=== PATIENT | female | born 1985 | race Caucasian/White ===

== ENCOUNTER → 2018-12-12 | Outpatient (CLI) | payer OTHER, SELFPAY ==
[2018-12-12 08:44] LABS: Anion Gap 4 (5-15); BUN 11 mg/dL (7-18); BUN/Creat Ratio 14.3 RATIO (10-20); Calcium,Total 9.1 mg/dL (8.5-10.1); Chloride 105 mmol/L (98-107); Creatinine, Serum 0.77 mg/dL (0.55-1.02); EST Glomerular Filtration Rate 91 mL/min (>60); Est Glom Filt Rate - Afr Amer 111 mL/min (>60); Glucose 99 mg/dL (74-106); Potassium 4.1 mmol/L (3.5-5.1); Sodium Level 139 mmol/L (136-145)
== END | disposition home or self-care (01) ==
LOC: LAB 08:09
PROVIDERS: Family Provider Family Medicine; PCP Family Medicine; Referring Provider Internal Medicine Endocrinology, Diabetes & Metabolism; Visit Provider Internal Medicine Endocrinology, Diabetes & Metabolism
DX: E04.1 Nontoxic single thyroid nodule (principal)
CPT/HCPCS: 36415; 80048

== ENCOUNTER → 2019-01-17 08:04 | Outpatient (CLI) | payer OTHER, SELFPAY ==
[2019-01-17 10:34] LABS: Anion Gap 8 (5-15); BUN 18 mg/dL (7-18); BUN/Creat Ratio 24.1 RATIO (10-20); Chloride 105 mmol/L (98-107); Creatinine, Serum 0.75 mg/dL (0.55-1.02); EST Glomerular Filtration Rate 94 mL/min (>60); Est Glom Filt Rate - Afr Amer 114 mL/min (>60); Glucose 73 mg/dL (74-106); Potassium 3.8 mmol/L (3.5-5.1); Sodium Level 140 mmol/L (136-145)
== END ==
PROVIDERS: Referring Provider Internal Medicine Endocrinology, Diabetes & Metabolism; Visit Provider Internal Medicine Endocrinology, Diabetes & Metabolism
DX: E04.1 Nontoxic single thyroid nodule (principal)
CPT/HCPCS: 36415; 80048

== ENCOUNTER → 2019-02-03 | Outpatient (CLI) | payer OTHER, SELFPAY ==
[2019-02-08 15:06] LABS: Thyroglobulin Antibody 1.4 IU/mL (0.0-0.9)
== END | disposition home or self-care (01) ==
LOC: LAB 08:01
PROVIDERS: Referring Provider Internal Medicine Endocrinology, Diabetes & Metabolism; Visit Provider Internal Medicine Endocrinology, Diabetes & Metabolism
DX: E04.1 Nontoxic single thyroid nodule (principal)
CPT/HCPCS: 36415; 84443; 86800

== ENCOUNTER → 2019-02-07 | Outpatient (CLI) | payer OTHER, SELFPAY ==
[2019-02-07 08:23] LABS: Internal QC Validated? YES +Cl - CLEAR BKGD; Pregnancy, Serum, hCG Quali. NEGATIVE Negative
== END | disposition home or self-care (01) ==
LOC: LAB.FUTURE 08:03
PROVIDERS: Referring Provider Internal Medicine Endocrinology, Diabetes & Metabolism; Visit Provider Internal Medicine Endocrinology, Diabetes & Metabolism
DX: C73 Malignant neoplasm of thyroid gland (principal)
CPT/HCPCS: 36415; 84703

== ENCOUNTER → 2019-03-27 | Outpatient (CLI) | payer OTHER, SELFPAY ==
[2019-03-27 10:16] LABS: Thyroid Stim Hormone (TSH) 1.93 uIU/mL (0.358-3.74)
[2019-03-28 16:25] LABS: Thyroglobulin Antibody 1.1 IU/mL (0.0-0.9)
== END | disposition home or self-care (01) ==
LOC: LAB 08:35
PROVIDERS: Referring Provider Internal Medicine Endocrinology, Diabetes & Metabolism; Visit Provider Internal Medicine Endocrinology, Diabetes & Metabolism
DX: E04.1 Nontoxic single thyroid nodule (principal)
CPT/HCPCS: 36415; 84443; 86800

== ENCOUNTER → 2019-05-17 | Outpatient (CLI) | payer OTHER, SELFPAY ==
[2019-05-17 12:06] LABS: Thyroid Stim Hormone (TSH) 0.05 uIU/mL (0.358-3.74)
== END | disposition home or self-care (01) ==
LOC: LAB 10:50
PROVIDERS: Referring Provider Internal Medicine Endocrinology, Diabetes & Metabolism; Visit Provider Internal Medicine Endocrinology, Diabetes & Metabolism
DX: C73 Malignant neoplasm of thyroid gland (principal)
CPT/HCPCS: 36415; 84443

== ENCOUNTER → 2019-06-15 | Outpatient (CLI) | payer SELFPAY, OTHER ==
--- NOTE | 2019-06-15 07:44 | CT_ITS ---
STUDY: CT ABDOMEN AND PELVIS WITH CONTRAST REASON FOR EXAM: Female, 34 years old. History of thyroid cancer with prior thyroidectomy and radiation therapy. Atherosclerosis. RADIATION DOSAGE (If Supplied By Facility): CTDIvol = ( 6.84 ) mGy, DLP = ( 415.74 ) mGycm TECHNIQUE: Transaxial images were obtained from the dome of the diaphragm to the symphysis pubis without oral contrast. IV Isovue 370 100 was administered. Sagittal and coronal images were reconstructed. Individualized dose optimization techniques were used for this CT. COMPARISON: None. FINDINGS: The visualized lung bases are unremarkable. The visualized portions of the heart are within normal limits. Normal liver. Normal gallbladder and extrahepatic biliary system. Normal spleen. Normal pancreas. Normal bilateral adrenal glands. Normal right kidney. Normal left kidney. Normal visualized stomach. Normal small intestine. Normal colon. The appendix is visualized and appears normal. Normal abdominal aorta. Normal inferior vena cava. Normal retroperitoneum. Normal urinary bladder. Retroverted uterus. The uterus is enlarged and of increased vascularity. Normal abdominal wall. Normal osseous structures. CT/CT Abd/Pelvis W/WO Contrast IMPRESSION: Normal enhanced CT of the abdomen and pelvis. Electronically Signed: Delmar Amin, at 8:59 EDT , Service support ,
--- NOTE | 2019-06-15 07:44 | CT_ITS ---
STUDY: CTA CHEST REASON FOR EXAM: Female, 34 years old. History of atherosclerosis of the aorta. Celiac artery stenosis. The patient has a history of thyroid carcinoma treated with thyroidectomy and radioactive iodine. RADIATION DOSAGE (If Supplied By Facility): CTDIvol = ( 6.84 ) mGy, DLP = ( 415.74 ) mGycm TECHNIQUE: The examination was performed with the intravenous administration of IV 100mL Isovue-370 100. Post-processing of the angiographic images was performed, with multiplanar reformation and 3D reconstruction. Individualized dose optimization techniques were used for this CT. COMPARISON: None. FINDINGS: Normal enhancement of the main pulmonary artery and right and left pulmonary arteries. Normal enhancement of the bilateral peripheral pulmonary arteries. There is no demonstrated pulmonary embolism. Normal thoracic aorta and visualized great vessels. There is no demonstrated aortic dissection. Normal heart and pericardium. Normal mediastinum. Normal hilar regions. Normal visualized trachea and bronchi. The lungs are well expanded. Normal pulmonary parenchyma. Normal pleura. Normal chest wall structures. Normal osseous structures. Normal visualized upper abdomen. CT/CTA Chest W/WO Contrast IMPRESSION: Normal CTA chest examination, without a demonstrated pulmonary embolism or arterial dissection. Electronically Signed: Delmar Amin, at 8:59 EDT , Service support ,
--- NOTE | 2019-06-15 11:58 | NM_ITS ---
CLINICAL: 34-year-old female with reported history of abdominal pain and nausea. SEMI-SOLID PHASE 99m Tc SULFUR COLLOID GASTRIC EMPTYING STUDY COMPARISON: CT of the abdomen-pelvis report 06/15/2019 FINDINGS: The patient was administered 1.0 mCi of 99m Tc sulfur colloid mixed with oatmeal and consumed per os. Image acquisitions in the anterior-posterior projections for a total of 60 minutes. There is prompt visualization of the stomach. There is no gastroesophageal reflux identified. The T1/2 linear fit was calculated to be 49.24 minutes, (Normal: 12-56 minutes). NM/Gastric Emptying Study IMPRESSION: 1. NORMAL 99m Tc sulfur colloid semi-solid phase (oatmeal) gastric emptying imaging examination. A. There is normal and preserved semi-solid phase gastric emptying compared to normal controls with maintained first order kinetics throughout all components of the examination. (Ray et al, J Nucl Med Tech 38: 186, 2010). Electronically Signed: Edson Canchola DO at 23:28 EDT Tel , Service support ,
== END | disposition home or self-care (01) ==
DX: I70.0 Atherosclerosis of aorta (principal); R11.0 Nausea
CPT/HCPCS: 71275; 74178; 78264; A9541; Q9967

== ENCOUNTER → 2019-06-21 | Outpatient (CLI) | payer OTHER, SELFPAY ==
--- NOTE | 2019-06-21 09:01 | AAVD_ITS ---
Reason For Study: Nausea Aorta Measurements Aorta Doppler Measurements Proximal aorta measures1.36 x 1.40cm. in cross- Peak systolic flow velocities within the proximal sectional axis. aorta measure 165.9 cm/sec. Proximal aorta measures1.32cm. in longitudinal axis. Celiac artery, Origin, 538.1/211.4 cm/sec. Celiac artery, Prox, 223.3/62.6 cm/sec. Hepatic artery, Prox, 172.3/49.5 cm/sec. Splenic artery, Prox, 229/23.7 cm/sec. SMA, Origin, 179.8/37.5 cm/sec. SMA, Prox, 190.8/30.6 cm/sec. SMA, Mid, 179.7/18.1 cm/sec. SARITA, Origin, 211.9 cm/sec. SARITA, Prox, 151.9/6.7 cm/sec. Procedure Exam performed in department. Interpretation Summary 1. Severe stenosis of celiac artery. Ordering Physician: VICTORINA BARRIENTOS Referring Physician: [facility] , Out of Performed By: Danni Becerra RVT
== END | disposition home or self-care (01) ==
LOC: CVS 08:42
DX: R11.0 Nausea (principal)
CPT/HCPCS: 93978

== ENCOUNTER → 2019-08-02 07:54 | Outpatient (CLI) | payer OTHER, SELFPAY ==
--- NOTE | 2019-08-02 07:57 | RAD_ITS ---
PROCEDURE: SMALL BOWEL SERIES DATE OF EXAMINATION: August 02, 2019. INDICATION: Female, 34 years old. Sharp and dull abdominal pain with nausea. PHYSICIAN: Delmar Amin M.D. FLUOROSCOPY TIME (if supplied): (0:19) minutes/seconds TECHNIQUE: Radiographic and fluoroscopic images were taken of the small intestine following the ingestion of barium. COMPARISON: None. FINDINGS: A preliminary supine KUB was obtained. There is an unremarkable bowel gas pattern. Fecal material is present throughout the colon. The osseous structures are normal. The patient orally ingested approximately 12 ounces of thin barium Normal visualized fundus, body, and antrum of the stomach. Normal duodenal bulb, C-loop, and proximal jejunum. Normal visualized mucosal folds of the jejunum and ileum. There are no demonstrated dilatations, strictures, or masses of the small intestine. There is no mass displacement of the loops of small intestine. There is a normal motor pattern with barium reaching the colon within approximately 30 minutes. Spot films under fluoroscopic observation demonstrated a normal terminal ileum and ileocecal valve. RAD/Small Bowel Series Only IMPRESSION: Normal small bowel series. Electronically Signed: Delmar Amin, at 13:25 EST , Service support ,
== END ==
PROVIDERS: Referring Provider Internal Medicine Gastroenterology; Visit Provider Internal Medicine Gastroenterology
DX: R10.84 Generalized abdominal pain (principal); R11.2 Nausea with vomiting, unspecified
CPT/HCPCS: 74250

== ENCOUNTER → 2021-12-17 | Outpatient (CLI) | payer OTHER, SELFPAY | END | disposition home or self-care (01) | LOC: LAB 09:20 | DX: Z13.79 Encounter for other screening for genetic and chromosomal anomalies (principal) | CPT/HCPCS: 36415; 81291 ==

== ENCOUNTER → 2022-01-05 | Outpatient (CLI) | payer OTHER, SELFPAY ==
[2022-01-05 13:37] LABS: Thyroid Stim Hormone (TSH) 1.12 uIU/mL (0.358-3.74)
[2022-01-05 13:45] LABS: Homocysteine 5.1 umol/L (3.2-10.7)
== END | disposition home or self-care (01) ==
LOC: LAB 12:50
DX: C73 Malignant neoplasm of thyroid gland (principal)
CPT/HCPCS: 36415; 83090; 84443

== ENCOUNTER → 2025-04-11 | Outpatient (CLI) | payer OTHER, SELFPAY ==
--- NOTE | 2025-04-11 08:00 | BI_ITS ---
EXAM: SCRN MAMM (CAD)W/JOSUÉ BILAT DATE: 04/11/2025 CLINICAL HISTORY: F, Age 40 y/o , SCREENING TECHNIQUE: SCRN MAMM (CAD)W/JOSUÉ BILAT COMPARISON: This is a baseline study. FINDINGS: TISSUE DENSITY: The breasts are extremely dense, which lowers the sensitivity of mammography. Bilateral Breast Mammographic Findings: No significant masses, calcifications or other abnormalities are identified. No suspicious masses, areas of developing architectural distortion, or suspicious calcifications. There has been no significant interval change. BI/SCRN MAMM (CAD)W/JOSUÉ BILAT IMPRESSION: Routine annual follow-up recommended. OVERALL FINAL ASSESSMENT BI-RADS 1: NEGATIVE. RECOMMENDATION: Routine annual follow-up in 1 Year A letter with findings and recommendations will be mailed to the patient. Reading Location: [id number]
[2025-04-11 13:11] LABS: Follicle Stimulating Hormone 7.5 mIU/mL
== END | disposition home or self-care (01) ==
PROVIDERS: PCP Student in an Organized Health Care Education/Training Program; Referring Provider Obstetrics & Gynecology; Visit Provider Obstetrics & Gynecology
DX: Z12.31 Encounter for screening mammogram for malignant neoplasm of breast (principal); N94.89 Other specified conditions associated with female genital organs and menstrual cycle; N95.1 Menopausal and female climacteric states
CPT/HCPCS: 77063; 77067; 82670; 83001; 83002

== ENCOUNTER → 2025-04-18 | Outpatient (CLI) | payer SELFPAY, OTHER ==
--- NOTE | 2025-04-18 11:01 | US_ITS ---
PROCEDURE: TRANSVAGINAL NON- 04/18/2025 REASON FOR EXAM: PELVIC CONGESTION SYNDROM, MENORRHAGIA TECHNIQUE: TRANSVAGINAL NON- COMPARISON: None FINDINGS: LMP: April 10, 2025. Measurements: Uterus: 10.4 cm x 8.5 cm x 6.9 cm with a volume of 316.2 mL Endometrial Thickness: 11 mm. It is hyperechoic. Right Ovary: 3.2 cm x 2.2 cm x 2.5 cm with a volume of 9.04 mL. Left Ovary: 3.1 cm x 2.4 cm x 1.1 cm with a volume of 4.1 mL. Uterus: There are 2 uterine fibroids. The larger measures 3.5 cm 4.2 cm 3.1 cm. Endometrium: Endometrium measures 11 mm. This may be related to the patient's menstrual cycle. There is a 4 mm x 2 mm x 3 mm echogenic nodule with vascularity within the endometrium. This may represent a polyp. Right ovary: Follicles are seen within the ovary. Left ovary: Follicles are seen within the ovary. Other: No large pelvic mass identified. US/Transvaginal Non- IMPRESSION: Fibroid uterus. Questionable endometrial polyp. Ovarian follicles. Reading Location: [id number]
== END | disposition home or self-care (01) ==
LOC: US 10:54
PROVIDERS: PCP Student in an Organized Health Care Education/Training Program; Referring Provider Obstetrics & Gynecology; Visit Provider Obstetrics & Gynecology
DX: N94.89 Other specified conditions associated with female genital organs and menstrual cycle (principal); N95.1 Menopausal and female climacteric states
CPT/HCPCS: 76830

== ENCOUNTER → 2025-04-26 | Outpatient (CLI) | payer OTHER, SELFPAY ==
--- NOTE | 2025-04-26 09:45 | EMB_PTH ---
PATIENT: DANAE HERNANDEZ LOC: [facility] U#:[id number] AGE/SX: 40/F ROOM: RE04/26/[address]: Dr. Jolly Peck DO : 1985 BED: DIS: 04/26/2025 SPEC #: [id number] RECD: 04/26/25 12:26 STATUS: CARLOZ MARINA #: [id number] FRANCISCO: 04/26/25 09:[address]: Jolly Peck DEPT: SURGICAL PATHOLOGY RECD BY: Jm Lowry ENTERED: 04/26/25 15:49 SP TYPE: ENDOM BX/C ESE DR: Susan Pelayo MD Tissues: A - Endometrium, NOS Procedures: Surgery Specimen Level IV HEADER OPERATION: Endometrial biopsy PRE-OP DIAGNOSIS: Menorrhagia TISSUE SUBMITTED: A- Endometrial lining MICROSCOPIC DIAGNOSIS A. Endometrium, biopsy: Secretory endometrium. MICROSCOPIC DESCRIPTION Slides are reviewed. GROSS DESCRIPTION A. Received in formalin labeled with the patient's name and date of is a 2.2 x 0.7 x 0.2 cm aggregate of pena-pink tissue fragments. Entirely submitted in 1 cassette. MA 04/26/2025 CPT:98750
[2025-04-30 11:08] LABS: HPV APTIMA, High Risk Negative (Negative)
== END | disposition home or self-care (01) ==
LOC: LABSPEC 11:30
PROVIDERS: PCP Student in an Organized Health Care Education/Training Program; Visit Provider Obstetrics & Gynecology
DX: N92.0 Excessive and frequent menstruation with regular cycle (principal); Z12.4 Encounter for screening for malignant neoplasm of cervix
CPT/HCPCS: 87624; 88175; 88305; G0145

== ENCOUNTER → 2025-07-09 | Outpatient (CLI) | payer OTHER, SELFPAY ==
[2025-07-09 16:37] LABS: Hematocrit 40.0 % (37-47); Hemoglobin 13.7 g/dL (12.0-15.0); Immature Granulocytes Count 0.030 X10^3/uL (0.0-0.0); Mean Corp Hgb Conc 34.3 g/dL (32-36); Mean Corpuscular Volume 92.2 fL (81-99); Mean Platelet Vol. 9.4 fl (6.2-12.0); NRBC Flagged by Analyzer 0 % (0-5); Platelet Count 303 K/mm3 (150-450); RBC Distribution Width CV 12.4 % (11.6-14.6); RBC Distribution Width SD 42.5 fl (35.1-43.9); Red Blood Count 4.34 M/mm3 (4.2-5.4); White Blood Count 8.7 K/mm3 (4.4-11.0)
--- OUTSIDE RECORDS SUMMARY | 2025-07-09 18:12 | XMS RPT_ITS | CCD ---
Author Organization [facility] Care Team Providers Care Safety Analyst Name Role Phone Pcp, No Primary Care Provider UnavailNeva Gonsalez Unavailable NEVA PARRY Attending Sagrario PAUL Perea MD Primary Care Unavailable NEVA FINNEGAN Unavailable RICK ESCOBAR Unavailable CENTER Unavailable Unavailable VASCULAR SURGEON, GENERAL Unavailable UnaAsia Hernandez MD Unavailable CAMILLA RAYA Unavailable Unavailable Jolly Childress Unavailable Unavailable UROLOGY, GENERAL Unavailable Unavailable Gita RN, Abigail Unavailable Unavailable ISAIAS SINGH, DONIS May Unavailable [phone] RAY YAO, LAURA Unavailable Unavailable Karishma Gaming Unavailable Unavailable Gurvinder GAMING MD Unavailable [place] ADVERTISING PRODUCTION MANAGER, Madiha Unavailable Unavailable GOOD PEREZ Unavailable Unavailable Tristan RN, Katty Unavailable Unavaila MICHAEL Adames Unavailable Unavailable Mukesh RN, Amie Unavailable Unavailable Unavailable Unavailable MEJIA PELAYO MD Unavailable Tova Thakkar LPN Unavailable Unavailable NEVA FINNEGAN Unavailable Unav ailable Unavailable Unavailable Dr. Jolly Peck DO Attending Provider Dr. Jolly Peck DO Referring Provider Mejia Pelayo MD Primary Care Provider Mejia Pelayo MD Referring Provider [phone] Jolly Peck Attending [place] Primary Care Unavailable Jolly Peck Attending UnavailJolly Swan Referring [place], [place] Primary Care Unavailable Jolly Peck Attending UnavailJolly Swan Referring [place], [place] Primary Care Unavailable Jolly Peck Attending [place], [place] Primary Care Unavailable [place], [place] Referring Unavailable [place], [place] Referring Unavailable Jolly Peck Attending [place], [place] Primary Care Unavailable Dr. Jolly Peck DO Attending Physician Gita SINGH Mejia Primary Care Physician Asia PEREZ Primary Care Unavailable Asia PEREZ Consulting Unavailable Asia PEREZ Attending Unavailable Asia PEREZ Admitting Unavailable PROVIDER, UNKNOWN Consulting Unavailable PROVIDER, UNKNOWN Consulting Unavailable PROVIDER, UNKNOWN Consulting Unavailable PAUL STANTON MD Primary Care Unavailable LEONOR SALVADOR MD Attending Unavailable PAUL STANTON MD Primary Care Unavailable LEONOR SALVADOR MD Attending Unavailable Allergies Allergy Classification Reported Allergen(s) Allergy Type Date of Onset Reaction(s) Facility (1 source) Morphine Drug Allergy 1 Intolerance [facility] Work Phone: (13 sources) Sulfamethoxazole / Trimethoprim Drug Allergy 1 Rash [facility] (5 sources) Sulfamethoxazole Drug Allergy 5 [facility] (5 sources) Trimethoprim Drug Allergy 5 [facility] (1 source) Sulfamethoxazole Drug Allergy 5 [facility] (1 source) Trimethoprim Drug Allergy 5 [facility] (1 source) Sulfamethoxazole / Trimethoprim Drug Allergy [facility] Repository Medications Current Medications Medication Drug Class(es) Dates Sig (Normalized) Sig (Original) B-Complex With Vitamin C capsule (5 sources) Start: 04-11-2025 Start: 04-11-2025 B-Complex With Vitamin C capsule Active 1 NMA PO daily April 11, 2025 12:00am cholecalciferol 0.025 mg oral capsule (5 sources) Vitamin D Start: 04-11-2025 take 1 capsule by mouth once daily doxycycline hyclate 100 mg oral capsule (13 sources) Tetracycline-class Drug Start: 05-08-2025 take 1 capsule by mouth twice daily Start: 07-22-2022 End: 07-29-2022 take 1 capsule by mouth twice daily Doxycycline Hyclate 100 MG Oral Capsule ; 1 (one) Capsule two times daily for 7 days Quantity: 14 {Capsule} Refills: 0 Ordered: 22-Jul-2022 REBECCA BARRIENTOS Start: 22-Jul-2022 End: 29-Jul-2022 Status: Inactive levothyroxine sodium 0.088 mg oral capsule (20 sources) l-Thyroxine Start: 04-11-2025 Levothyroxine 88 mcg capsule Active 88 ug PO As Directed April 11, 2025 8:45am 1 tablet daily, 1 1/2 tablets Wednesday Start: 03-24-2023 End: 04-11-2025 take 1 tablet by perri th once daily Levothyroxine Sodium 88 MCG Oral Tablet ; 1 daily (88 MCG) Comments: Plus 1/2 tab more on Sundays take 1 capsule by mo uth once daily before breakfast levothyroxine 88 mcg cap Take 88 mcg by mouth daily before breakfast. 0 Active Comment on above: Take 88 mcg by mouth daily before breakfast. Plus 1/2 tab more on Sundays sertraline 25 mg oral tablet (20 sources) Serotonin Reuptake Inhibitor Start: 04-11-2025 Start: 03-24-2023 End: 04-11-2025 sertraline 25 mg tablet ; 1 1/2 (one and a half) tablet daily for 90 days Quantity: 135 {Tablet} Refills: 2 Ordered: 23-Jan-2025 MD MEJIA PELAYO Start: 23-Jan-2025 take 1 tablet by perri th once daily sertraline (ZOLOFT) 25 mg tablet Take 25 mg by mouth once daily. 0 Active Comment on above: Take 25 mg by mouth once daily. REQUEST FOR 90 DAYS PRESCRIPTION. Completed/Discontinued Medications Medication Drug Class(es) Dates Sig (Normalized) Sig (Original) acetaminophen 325 mg oral tablet (1 source) Start: 06-27-2021 take 2 tablets by mouth every six hours acetaminophen (TYLENOL) 325 mg tablet Take 2 tablets by mouth every 6 hours. 0 06/27/2021 Active Comment on above: Take 2 tablets by [facility] every 6 hours. amoxicillin 875 mg / clavulanate 125 mg oral tablet (12 sources) Penicillin-class Antibacterial Start: 10-05-2011 End: 10-12-2011 take 1 tablet by mouth twice daily AUGMENTIN, 875-125MG (Oral Tablet) ; 1 (one) Tablet two times daily for 7 days Quantity: 14 {Tablet} Refills: 0 Ordered: 05-Apr-2014 MD Gurvinder GAMING Start: 05-Oct-2011 End: 12-Oct-2011 Status: Inactive Comments: for delivery Comment on above: for delivery evening primrose oil 500 mg oral capsule (12 sources) take 1 capsule by mouth once daily Evening [place] Oil 500 MG Oral Capsule ; 1 daily (500 MG) Status: Inactive hydrOXYzine hydrochloride 25 mg oral tablet (12 sources) Antihistamine Start: 05-09-2020 End: 10-16-2020 take 1 tablet by mouth four times daily as needed hydrOXYzine HCl 25 MG Oral Tablet ; 1 (one) Tablet four times daily, as needed for 30 days Quantity: 120 {Tablet} Refills: 2 Ordered: 16-Oct-2020 NAJMA Pelayo Start: 09-May-2020 End: 16-Oct-2020 Status: Inactive Comments: Medication taken as needed. Comment on above: Medication taken as needed. ondansetron 4 mg disintegrating oral tablet (12 sources) Serotonin-3 Receptor Antagonist Start: 10-16-2020 End: 10-26-2020 take 1 tablet by mouth three times daily as needed Ondansetron 4 MG Oral Tablet Disintegrating ; 1 (one) Tablet three times daily, as needed for 10 days Quantity: 30 {Tablet} Refills: 0 Ordered: 05-Nov-2020 REBECCA BARRIENTOS Start: 16-Oct-2020 End: 26-Oct-2020 Status: Inactive Comments: Medication taken as needed. Comment on above: Medication taken as needed. oxyCODONE hydrochloride 5 mg oral tablet (1 source) Opioid Agonist Start: 06-29-2021 oxyCODONE IR (ROXICODONE) 5 mg immediate release tablet Indications: Median arcuate ligament syndrome (HCC) Take 1-2 tablets by mouth every 6 hours as needed for pain for up to 7 days. Do not start before June 29, 2021. 20 tablet 0 06/29/2021 Active Comment on above: Take 1-2 tablets by mouth every 6 hours as needed for pain for up to 7 days. Do not start before June 29, 2021. polyethylene glycol 3350 00464 mg powder for oral solution (1 source) Osmotic Laxative Start: 06-27-2021 polyethylene glycol 3350 (MIRALAX, GLYCOLAX) 17 gram packet Take 1 Packet by mouth once daily. Dissolve dose in 4 - 8 ounces of liquid and take as directed. 0 06/27/2021 Active Comment on above: Take 1 Packet by perri once daily. Dissolve dose in 4 - 8 ounces of liquid and take as directed. 72 hr scopolamine 0.0139 mg/hr transdermal system (12 sources) Anticholinergic Start: 07-04-2021 End: 08-03-2021 Scopolamine 1 MG/3DAYS Transdermal Patch 72 Hour ; 1 (one) Patch every 3 days for 30 days Quantity: 10 {Patch} Refills: 0 Ordered: 29-Oct-2021 REBECCA BARRIENTOS Start: 04-Jul-2021 End: 03-Aug-2021 Status: Inactive traMADol hydrochloride 50 mg oral tablet (12 sources) Opioid Agonist Start: 03-26-2021 End: 04-02-2021 take 1 tablet by mouth twice daily as needed traMADol HCl 50 MG Oral Tablet ; 1 (one) Tablet two times daily, as needed for 7 days Quantity: 14 {Tablet} Refills: 0 Ordered: 28-Jun-2021 REBECCA BARRIENTOS Start: 26-Mar-2021 End: 02-Apr-2021 Status: Inactive Comments: Medication taken as needed. Comment on above: Medication taken as needed. vitamin b6 100 mg oral tablet (12 sources) take 1 tablet by mouth once daily Vitamin B-6 100 MG Oral Tablet ; 1 daily (100 MG) Status: Inactive zinc gluconate 50 mg oral tablet (12 sources) take 1 tablet by mouth once daily Zinc 50 MG Oral Tablet ; 1 daily (50 MG) Status: Inactive Problems Active Problems Problem Classification Problem Date Documented Date Episodic/Chronic Abdominal pain (20 sources) Generalized abdominal pain; Translations: [Generalized abdominal pain] 01-20-2023 Episodic Acute bronchitis (12 sources) Acute bronchitis; Translations: [Acute bronchitis, unspecified] 09-11-2015 Episodic Administrative/social admission (20 sources) Patient encounter status; Translations: [Counseling, unspecified] 01-20-2023 Episodic Anxiety disorders (20 sources) Obsessive-compulsive disorder; Translations: [Obsessive-compulsive disorder, unspecified] Onset: 04-11-2025 01-20-2023 Chronic Benign neoplasm of uterus (20 sources) Uterine leiomyoma; Translations: [Leiomyoma of uterus, unspecified] 05-19-2023 Episodic Cancer of thyroid (20 sources) Malignant tumor of thyroid gland; Translations: [Malignant neoplasm of thyroid gland] Onset: 04-11-2025 04-21-2019 Chronic Complications of surgical procedures or medical care (1 source) Postoperative hypothyroidism; Translations: [Postprocedural hypothyroidism] Onset: 06-18-2021 06-18-2021 Chronic Esophageal disorders (3 sources) Dyskinesia of esophagus; Translations: [Dyskinesia of esophagus] Onset: 05-22-2025 Chronic Genitourinary symptoms and ill-defined conditions (20 sources) Increased frequency of urination; Translations: [Frequency of micturition] 01-20-2023 Episodic Malaise and fatigue (20 sources) Other fatigue; Translations: [Fatigue] Onset: 01-20-2023 Episodic Menopausal disorders (11 sources) Menopausal syndrome; Translations: [Menopausal and female climacteric states] Onset: 04-11-2025 04-11-2025 Chronic Menstrual disorders (20 sources) Menorrhagia; Translations: [Excessive and frequent menstruation with regular cycle] Onset: 04-26-2025 01-20-2023 Chronic Mood disorders (20 sources) Dysthymia; Translations: [Dysthymic disorder] 01-20-2023 Chronic Nausea and vomiting (20 sources) Nausea; Translations: [Nausea] 01-20-2023 Episodic Nonmalignant breast conditions (20 sources) Lump in right breast; Translations: [Unspecified lump in the right breast, unspecified quadrant] 01-20-2023 Episodic Other circulatory disease (20 sources) Celiac artery compression syndrome; 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] Onset: 06-18-2021 Chronic Other circulatory disease (20 sources) Stenosis of celiac artery; 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] 01-20-2023 Chronic Other circulatory disease (11 sources) Vascular disease of abdomen; Translations: [Unspecified disorder of circulatory system] 03-24-2023 Episodic Comment on above: vascular depression Other circulatory disease (1 source) Unspecified disorder of circulatory system; Translations: [Unspecified disorder of circulatory system] Onset: 04-11-2025 Episodic Other diseases of veins and lymphatics (20 sources) Iliac vein compression syndrome; 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 Shared decision made to check UA every 6-12 months and more frequent PRN. If L flank pain however would recommend returning to surgeon.Also discussed possible nephrology referral if worsening hematuria and/or proteinuria to rule out urothelial mass or nephritis. surgery x1 Other diseases of veins and lymphatics (1 source) Compression of vein; Translations: [Compression of vein] Onset: 04-11-2025 Episodic Other female genital disorders (11 sources) Pelvic congestion syndrome; Translations: [Other specified conditions associated with female genital organs and menstrual cycle] 03-24-2023 Episodic Other female genital disorders (1 source) Other specified conditions associated with female genital organs and menstrual cycle; Translations: [Other specified conditions associated with female genital organs and menstrual cycle] Onset: 04-26-2025 Episodic Other female genital disorders (2 sources) Polyp of corpus uteri; Translations: [Polyp of corpus uteri] 04-26-2025 Episodic Other non-traumatic joint disorders (20 sources) Joint pain; Translations: [Pain in unspecified joint] 01-20-2023 Episodic Other screening for suspected conditions (not mental disorders or infectious disease) (20 sources) Encounter for screening for malignant neoplasm of cervix; Translations: [Patient encounter status] Onset: 01-20-2023 Episodic Comment on above: Negative Breast canc er screening, 11.7% lifetime risk Other skin disorders (20 sources) Seborrheic keratosis; Translations: [Other seborrheic keratosis] 01-20-2023 Episodic Other upper respiratory infections (20 sources) Bacterial sinusitis; Translations: [Chronic sinusitis, unspecified] 01-20-2023 Chronic Peripheral and visceral atherosclerosis (20 sources) Atherosclerosis of aorta; Translations: [Atherosclerosis of aorta] 01-20-2023 Chronic Thyroid disorders (20 sources) Mass of thyroid gland; Translations: [Disorder of thyroid, unspecified] 01-20-2023 Episodic Unclassified (12 sources) Unspecified Diagnosis 01-20-2023 Unclassified (12 sources) !Patient notification of lab results - REBECCA Mccormack. The test(s) that you had done were/was blood work. The results of your testing were negative . You should call our office to schedule an appointment for additional testing and if you have any questions. Note for !Patient notification of lab results ": Your blood work was negative for the MTHFR gene. However, it was suggested in the result that we test for homocysteine levels. I've ordered this if you are interested. Thanks! 12-25-2021 Past or Other Problems Problem Classification Problem Date Documented Da te Episodic/Chronic Mood disorders (20 sources) Mood disorders 05-27-2022 Unclassified (7 sources) Anxiety Disorders - The last clinic visit was 4 month(s) ago. 09-10-2023 Unclassified (7 sources) [ADDITIONAL REASON] nutcracker syndrome 09-10-2023 Unclassified (12 sources) !Patient notification of lab results - REBECCA Mccormack. The test(s) that you had done were/was a urine for protein (checks for early kidney damage). Your tests showed the following abnormalities: traces of blood . You should call our office to schedule a referral and if you have any questions. Please follow up as scheduled. Note for "!Patient notification of lab results ": There is still blood in your urine. If you would like to see a kidney doctor for this, you can. If you would like to just pass it on to the specialist your are consulting with that is fine as well. Otherwise, there is no protein in it. Thanks! 06-23-2023 Unclassified (12 sources) Depression - Symptoms do not include suicidal ideation, suicide attempt, loss of interest, depressed mood, fatigue, sense of failure, poor concentration, indecisiveness, psychomotor retardation, appetite change, weight loss, weight gain, poor sleep, hypersomnia, headaches, irritability or anxiety. Associated symptoms do not include racing thoughts, periods of excess energy, periods of euphoria, social difficulties, employment difficulties, financial difficulties, difficulty with activities of daily living, delusions, auditory hallucinations or visual hallucinations. 05-20-2023 Unclassified (12 sources) !Patient notification of lab results - REBECCA Mccormack. The test(s) that you had done were/was a CT scan. The results of your testing were stable for your medical condition . You should call our office if you have any questions. Please let us know if your symptoms do not improve. Note for !Patient notification of lab results ": Your CT scan showed no left renal vein compression, normal aorta SMA angle, small abdominal wall hernias (3 tiny ones), mild constipation, and the uterine fibroid. Overall, I think this is encouraging but please let me know what you decide to do. Thanks! 02-08-2023 Unclassified (12 sources) !Patient notification of lab results - REBECCA Mccormack. The test(s) that you had done were/was a pap test (screen for cervical cancer). The results of your testing were normal . You should call our office if you have any questions. Please follow up as scheduled. 01-28-2023 Unclassified (12 sources) !Patient notification of lab results - REBECCA Mccormack. The test(s) that you had done were/was blood work. The results of your testing were to goal . You should call our office if you have any questions. Please note that we have included copies of your results and let us know if your symptoms do not improve. Note for !Patient notification of lab results ": Your total cholesterol was slightly high at 208 but I think this is due to your good cholesterol being high- you do not need medication for this. Thanks! 01-21-2023 Unclassified (9 sources) Physical examination - The patient is here for a annual physical. 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 Patient asking for labs, CT scan 01-20-2023 Unclassified (10 sources) [ADDITIONAL REASON] Fatigue - Symptoms include fatigue and poor sleep. Note for "Fatigue": restless legs, back pain, flank pain, pelvic pain. 01-20-2023 Unclassified (11 sources) [ADDITIONAL REASON] Urinary frequency - The symptoms have been associated with dysuria, flank pain, hesitancy and suprapubic pain. Note for "Urinary frequency": drank cranberry juice and took garlic, eased up but still doesn't feel right 01-20-2023 Unclassified (12 sources) Depressive Disorders - The last clinic visit was 5 month(s) ago. 11-19-2022 Unclassified (12 sources) !Patient notification of lab results - REBECCA Mccormack. The test(s) that you had done were/was blood work. The results of your testing were normal . You should call our office if you have any questions. Please follow up as scheduled and let us know if your symptoms do not improve. Note for !Patient notification of lab results ": Your kidney function was completely normal. The lyme test was negative. I would continue with the treatment based on your symptoms. Let me know if you have any questions. Thanks! 07-14-2022 Unclassified (12 sources) Rash - Note for "Rash": Pt had a bullseye red area on her upper right thigh. The spot is gone now. It was slightly itchy. Pt does not remember any insect bites. She also c/o muscle spasms in her shoulders and some joint pain and swelling in her knees. She has a slight headache. 07-08-2022 Unclassified (12 sources) Obsessive Compulsive Disorder - Note for Obsessive compulsive disorder": Pt doing well and need med refills 11-27-2021 Unclassified (12 sources) Depression - The last clinic visit was 6 month(s) ago. Note for "Depression": Is feeling very good on Sertraline. Is sleeping well, coping well, and no days of crying. No thoughts of hurting self. Is coping well with Pain and is thinking about possible surgery in the future 10-16-2020 Unclassified (12 sources) !Patient notification of lab results - REBECCA Mccormack. The test(s) that you had done were/was a mammogram. Your tests showed the following abnormalities: breast cyst, unchanged . You should call our office if you have any questions. Please follow up as scheduled. 05-09-2020 Unclassified (12 sources) Anxiety Disorders - It is classified as obsessive-compulsive disorder. Note for "Anxiety disorders": Pt is feeling well on current medication and dose. Label Sewer lowered Levothyroxine dose and pt feels her anxiety is better on the lower dose. 04-17-2020 Unclassified (8 sources) Anxiety - Note for "Anxiety": Pt states saw a psychologist as part of work up for MALS who recommended restarting sertraline. 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 Pt states OCD symptoms are returning. 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. Would like to review labwork/testing done. See reports brought by patient. Also told that she has hernia. Surgery is an option for hernia and MALS, pt is considering options. 10-02-2019 Unclassified (12 sources) !Patient notification of lab results - REBECCA Mccormack. The test(s) that you had done were/was a pap test (screen for cervical cancer). The results of your testing were normal . You should call our office if you have any questions. Note for !Patient notification of lab results ": Sorry, I didn't have this when we were on the phone! 05-01-2019 Unclassified (12 sources) Well Woman Visit - The patient does not feel well and has decreased energy level. Pap smear: Date: (2005 after last delivery). Contraceptive history: The current method of contraception is condom-male. Nutrition: balanced diet and supplemental vitamins (glutamine prime, For-life, and ady.). Patient sleeps 8 hours per night. The patient reports that she does not perform monthly breast self exam (Pt. has felt a beebee sized lump in the upper outer quadrant of her right breast.). Note for "Well Woman Visit": Pt. has a history of thyroid cancer and sees [facility]. She has had it fully removed and radiation. She has a strong family history of breast cancer. She is concerned because she has had fatigue, diarrhea, GI upset and back pain radiating down her legs. 04-21-2019 Unclassified (12 sources) !Patient notification of lab results - Isaias. The test(s) that you had done were/was an ultrasound exam. Your tests showed the following abnormalities: right thyroid nodule, moderately suspicious for cancer . You should call our office to schedule an appointment for additional testing (needle biopsy in radiology under ultrasound guidance). 10-05-2018 Unclassified (12 sources) !Patient notification of lab results - Isaias. The test(s) that you had done were/was a CBC (checks for anemia and infection), a CMP (kidneys, liver, nutrition, sugar), a lipid panel (cholesterol and triglycerides) and a TSH (thyroid). The results of your testing were normal . Note for !Patient notification of lab results ": Awaiting result of ultrasound 09-27-2018 Unclassified (5 sources) Obsessive Compulsive Disorder - Symptoms do not include obsessive thoughts or repetitive compulsions. 09-26-2018 Unclassified (12 sources) [ADDITIONAL REASON] Neck Mass - Symptoms include neck mass and difficulty swallowing, while symptoms do not include neck pain. Onset was 1 year(s) ago. The patient describes this as worsening. 09-26-2018 Unclassified (12 sources) [ADDITIONAL REASON] Skin Check - The lesion is located on the right side of the chest. Note for "Skin check": Has mole that she wants checked. Has grown larger in size this past year. 09-26-2018 Unclassified (4 sources) Anxiety - The course has been decreasing. 07-02-2017 Unclassified (5 sources) [ADDITIONAL REASON] Obsessive Compulsive Disorder - The history source is the patient. The last clinic visit was 12 month(s) ago. Symptoms include anxiety. Note for Obsessive compulsive disorder": Had stopped the Zoloft and then restarted the medication about one month ago due to anxiety. 07-02-2017 Unclassified (12 sources) !Patient notification of lab results - Zackary. Note for "!Patient notification of lab results ": Jessa, your labs look completely normal. I hope you are feeling some better.Let us know if you have any questions. 07-08-2016 Unclassified (12 sources) Fatigue - Note for "Fatigue": Had vomiting and diarrhea about 3 weeks ago. Weak and tired since then. Also had sore throat about 2 weeks ago. 07-07-2016 Unclassified (12 sources) !Patient notification of lab results 1 - Isaias. The test(s) that you had done were/was a CBC (checks for anemia and infection), a CMP (kidneys, liver, nutrition, sugar), a lipid panel (cholesterol and triglycerides) and a TSH (thyroid). The results of your testing were normal . Please continue your current medication/therapy. 09-12-2015 Unclassified (5 sources) Obsessive Compulsive Disorder - The history source is the patient. Symptoms include obsessive thoughts. The obsessive theme revolves around contamination. The type of compulsive ritual activity is handwashing. 09-11-2015 Unclassified (5 sources) [ADDITIONAL REASON] cough - The onset of the cough has been acute and has been occurring for 3 weeks. The course has been decreasing. The cough is characterized as productive of purulent sputum. The symptoms have been associated with runny nose and sore throat, while the symptoms have not been associated with chest pain, dyspnea, fever or headache. Note for "cough": Pt also c/o diarrhea, backache, dizziness, weakness, and numbness in feet. 09-11-2015 Unclassified (12 sources) Breast pain - The pain has been occurring for weeks (4). Note for "Breast pain": Pain, redness, fever. Nursing, 09/15/11 baby born. 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 09-10-2023 Unclassified (1 source) Urinary frequency - The symptoms have been associated with dysuria, flank pain, hesitancy and suprapubic pain. Note for "Urinary frequency": drank cranberry juice and took garlic, eased up but still doesn't feel right 01-20-2023 Unclassified (3 sources) [ADDITIONAL REASON] Physical examination - The patient is here for a annual physical. 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 Patient asking for labs, CT scan 01-20-2023 Unclassified (8 sources) Anxiety Disorders - Symptoms do not include palpitations, chest discomfort, trouble breathing, abdominal discomfort, racing thoughts or sleep disturbance. Note for "Anxiety disorders": Pt states she has never felt better-states feels dose is working perfectly for her 07-17-2024 Unclassified (8 sources) [ADDITIONAL REASON] Nutcracker phenomanon - Pt states she needs her urine checked for protein. 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 Note for "Fatigue": restless legs, back pain, flank pain, pelvic pain. 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. Would like to review labwork/testing done. See reports brought by patient. Also told that she has hernia. Surgery is an option for hernia and MALS, pt is considering options. 10-02-2019 Unclassified (4 sources) [ADDITIONAL REASON] Anxiety - Note for "Anxiety": Pt states saw a psychologist as part of work up for MALS who recommended restarting sertraline. 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 Pt states OCD symptoms are returning. 10-02-2019 Unclassified (7 sources) [ADDITIONAL REASON] Obsessive Compulsive Disorder - Symptoms do not include obsessive thoughts or repetitive compulsions. 09-26-2018 Unclassified (7 sources) Obsessive Compulsive Disorder - The history source is the patient. The last clinic visit was 12 month(s) ago. Symptoms include anxiety. Note for Obsessive compulsive disorder": Had stopped the Zoloft and then restarted the medication about one month ago due to anxiety. 07-02-2017 Unclassified (8 sources) [ADDITIONAL REASON] Anxiety - The course has been decreasing. 07-02-2017 Unclassified (7 sources) cough - The onset of the cough has been acute and has been occurring for 3 weeks. The course has been decreasing. The cough is characterized as productive of purulent sputum. The symptoms have been associated with runny nose and sore throat, while the symptoms have not been associated with chest pain, dyspnea, fever or headache. Note for "cough": Pt also c/o diarrhea, backache, dizziness, weakness, and numbness in feet. 09-11-2015 Unclassified (7 sources) [ADDITIONAL REASON] Obsessive Compulsive Disorder - The history source is the patient. Symptoms include obsessive thoughts. The obsessive theme revolves around contamination. The type of compulsive ritual activity is handwashing. 09-11-2015 Unclassified (5 sources) Anxiety - There has been no associated agitation, breathlessness, chest pain, dry mouth, feeling of sadness or insomnia. Note for "Anxiety": Pt states med/dose are working well for her. No symptoms 01-23-2025 Unclassified (1 source) Nutcracker phenomanon - Pt states she needs her urine checked for protein. Will be having surgery for Nutcracker Phenomanon 07-20-2024 Unclassified (1 source) [ADDITIONAL REASON] Anxiety Disorders - Symptoms do not include palpitations, chest discomfort, trouble breathing, abdominal discomfort, racing thoughts or sleep disturbance. Note for "Anxiety disorders": Pt states she has never felt better-states feels dose is working perfectly for her 07-20-2024 Results Test Name Value Interpretation Reference Range Facility .Thyroglobulin by SARITA [id number] on 05-23-2025 Thyroglob SARITA <0.1 Low 1.5-38.5 [facility] Comment on above: Result Comment: According to the National Academy of Clinical Biochemistry, the reference interval for Thyroglobulin (TG) should be related to euthyroid patients and not for patients who underwent thyroidectomy. TG reference intervals for these patients depend on the residual mass of the thyroid tissue left after surgery. Establishing a post-operative baseline is recommended. The assay limit of quantitation is 0.1 ng/mL Thyroglobulin measured by Add2[employer] Immunometric Assay Performed At: [facility] [place], [place] [id number] Elia Ojeda PhD Ph:[phone] Performed By: #### T , [id number], [id number] #### [place] [address] THYRORFon 05-23-2025 Thyroglob Ab <1.0 Normal 0.0-0.9 [facility] Comment on above: Result Comment: Thyr oglobulin Antibody measured by [facility] [employer]ola Methodology It should be noted that the presence of thyroglobulin antibodies may not be pathogenic nor diagnostic, especially at very low levels. The assay rubber roller grinder has found that four percent of individuals without evidence of thyroid disease or autoimmunity will have positive TgAb levels up to 4 IU/mL. Performed At: [facility] [address] [place], [place] [id number] Elia Ojeda PhD Ph:[phone] Performed By: #### T , [id number], [id number] #### [facility] [address] [place] [address] ABDOMEN/PELVIS Won 2024 CT ABDOMEN/PELVIS W [place] [id number] [facility] ? [place], [place] [address] ? Patient: JESSA HERNANDEZ Phone#: : 1985 Age: 40 Gender: F Pt. Type: Out Account: [id number] Location: Ordering: PAUL PEREZ Exam Date: 05/22/2025/8:20 Family Phys: Charge Code: [id number] Physician: Green Order #: [id number] Dose#: [id number] PROCEDURE: CT ABDOMEN/PELVIS WITH CONTRAST COMPARISON: [facility], CT, ABDOMEN/PELVIS W CON, 04/28/2019, 11:17. [facility], CT, ABDOMEN/PELVIS W CON, 02/02/2023, 12:02. INDICATIONS: Nutcracker phenomenon of renal vein. TECHNIQUE: After obtaining the patient's consent, CT images were created with non-ionic intravenous contrast material. All CT scans at this facility use dose modulation, iterative reconstruction, and/or weight based dosing when appropriate to reduce radiation dose to as low as reasonably achievable. IV CONTRAST: Omnipaque 350,80ml TOTAL DOSE: 14.70 CTDIvol(mGy) FINDINGS: LIVER: Normal. No enlargement, atrophy, abnormal density, or significant focal lesion. BILIARY: Gallbladder is present. PANCREAS: Normal. No lesion, fluid collection, ductal dilatation, or atrophy. SPLEEN: Normal. No enlargement or focal lesion. KIDNEYS: Kidneys enhance and excrete contrast symmetrically. No hydronephrosis. ADRENALS: Normal. No mass or enlargement. AORTA/VASCULAR: Evidence of prior surgical intervention at the level of the celiac artery. Celiac artery is patent. Superior mesenteric artery is patent. Aorta-mesenteric angle and interval are unremarkable. Renal arteries are patent. Inferior mesenteric artery is patent. No reflux contrast present in either gonadal vein. Gonadal veins are unremarkable in size measuring approximately 0.3 cm. Left renal vein is unremarkable without compression. RETROPERITONEUM: Normal. No mass or adenopathy. BOWEL/MESENTERY: No bowel obstruction or dilatation. Moderate to large stool burden. Appendix is unremarkable in size and contains air. Continued Report - Page 2 of 2 Patient: JESSA HERNANDEZ Phone#: : 1985 Age: 40 Gender: F Pt. Type: Out Account: [id number] Location: Ordering: PAUL PEREZ Exam Date: 05/22/2025/8:20 Family Phys: Charge Code: [id number] Physician: Green Order #: [id number] Dose#: [id number] ABDOMINAL WALL: Midline supraumbilical abdominal wall defects measuring 1.0 x 1.9 cm and 0.9 x 0.6 cm. URINARY BLADDER: Urinary bladder is decompressed. PELVIC NODES: Normal. No adenopathy. PELVIC ORGANS: Uterus contains least three hypodense lesions, the largest measures 3.5 by 3.8 cm. These most likely represent fibroids though are suboptimally characterized by CT. Corpus luteal cyst seen in the left ovary. No adnexal mass. BONES: Normal. No bony lesion or fracture. LUNG BASES: Normal. No visible pulmonary or pleural disease. OTHER: Negative. CONCLUSION: 1. Lesions within the uterus, may represent fibroids though incompletely characterized on this exam. 2. No reflux of contrast in either gonadal vein. 3. Constipation Dictated by: Mony Montana MD on 05/22/2025 at 18:21 Approved by: Mony Montana MD on 05/23/2025 at 18:20 Normal [facility] TSHon 05-21-2025 TSH 3.387 mIU/mL Normal 0.550-4.780 [facility] Comment on above: Performed By: #### T , [id number], [id number] #### [place] [address] Carlos 05-14-2025 CNPN Telephone (Klipfolio[employer]uni) JESSA HERNANDEZ ([id number]) 1985 F CHT Date Time Provider Department 05/14/25 JUDIT HEAD During your visit today, we recorded the following information about you: Allergies As of Date: 05/14/2025 Noted Allergy Reaction BACTRIM (SULFAMETHOXAZOLE-TRIMETH* 2 - Rash MORPHINE 06/18/2021 5 - Intolerance Comments: Nausea and pt felt like she could not breathe Date Reviewed: 07/06/2022 Reviewed by: Karla Montelongo MA - Fully Assessed Reason for Visit: Research [293] Cmt: IRB #[id number]: Decision regret and clinical predictors following median arcuate ligament release surgery: a combined retrospective-survey analysis. Patient contacted on May 14, 2025 and agreed to participate in study. Consent obtained verbally over telephone. Survey conducted over the phone. Prescriptions as of 05/14/2025 - oxyCODONE IR (ROXICODONE) 5 mg immediate release tablet Take 1-2 tablets by mouth every 6 hours as needed for pain for up to 7 days. Do not start before June 29, 2021. - acetaminophen (TYLENOL) 325 mg tablet Take 2 tablets by mouth every 6 hours. - polyethylene glycol 3350 (MIRALAX, GLYCOLAX) 17 gram packet Take 1 Packet by mouth once daily. Dissolve dose in 4 - 8 ounces of liquid and take as directed. - sertraline (ZOLOFT) 25 mg tablet Take 25 mg by mouth once daily. - levothyroxine 88 mcg cap Take 88 mcg by mouth daily before breakfast. Problem List As Of Date 05/14/2025 Noted Resolved Median arcuate ligament syndrome (HCC) [I77.4] 06/18/2021 Postoperative hypothyroidism [E89.0] 06/18/2021 Encounter Status:Closed by JUDIT HEAD on 05/14/25 Normal [facility] Surgical pathology reportOrd ered By: Arti Weathers on 05-01-2025 Surgical pathology study [facility] PAP IG HPV APTIMA 16/18,45on 04-30-2025 ADEQ Comment Normal . [facility] Comment on above: Order Comment: Speci men Comment: [id number] Specimen Comment: No. of containers..01 ThinPrep Vial Result Comment: Sati sfactory for evaluation. Endocervical and/or squamous metaplastic cells (endocervical component) are present. Performed By: #### L 7400.0280 #### [facility] [address] [place], [address] COMM . Normal . [facility] Comment on above: Order Comment: Speci men Comment: [id number] Specimen Comment: No. of containers..01 ThinPrep Vial Performed By: #### L 7400.0280 #### [facility] [address] [place], [address] COMMENT Comment Normal . [facility] Comment on above: Order Comment: Speci men Comment: [id number] Specimen Comment: No. of containers..01 ThinPrep Vial Result Comment: This liquid based ThinPrep(R) pap test was screened with the use of an image guided system. Performed By: #### L 7400.0280 #### [facility] [address] [place], [address] DIAG Comment Normal . [facility] Comment on above: Order Comment: Speci men Comment: [id number] Specimen Comment: No. of containers..01 ThinPrep Vial Result Comment: NEGA TIVE FOR INTRAEPITHELIAL LESION OR MALIGNANCY. THIS SPECIMEN WAS RESCREENED PART OF OUR CODING COORDINATOR PROGRAM. Performed By: #### L 7400.0280 #### [facility] [address] [place], [address] HPV APTIMA, HR Negative Normal Negative [facility] Comment on above: Order Comment: Speci men Comment: [id number] Specimen Comment: No. of containers..01 ThinPrep Vial Result Comment: This nucleic acid amplification test detects fourteen high- risk HPV types (16,18,31,33,35,39,45,51,52,56,58,59,66,68) without differentiation. Performed By: #### L 7400.0280 #### [facility] [address] [place], [address] HPV Farrah Rfx Comment Normal . [facility] Comment on above: Order Comment: Speci men Comment: [id number] Specimen Comment: No. of containers..01 ThinPrep Vial Result Comment: Crit eria not met, HPV Genotype not performed. Performed at: - [facility] [id number] [employer]: Kasey Johns MD, Phone: [phone] Performed at: = - [facility] [id number] [employer]: Kasey Johns MD, Phone: [phone] Performed By: #### L 7400.0280 #### [facility] [address] [place], [address] PAPSMR Comment Normal . [facility] Comment on above: Order Comment: Speci men Comment: [id number] Specimen Comment: No. of containers..01 ThinPrep Vial Result Comment: The Pap smear is a screening test designed to aid in the detection of premalignant and malignant conditions of the uterine cervix. It is not a diagnostic procedure and should not be used as the sole means of detecting cervical cancer. Both false-positive and false-negative reports do occur. Performed By: #### L 7400.0280 #### [facility] [address] [place], [place], [id number] PERFORM Comment Normal . [facility] Comment on above: Order Comment: Speci men Comment: [id number] Specimen Comment: No. of containers..01 ThinPrep Vial Result Comment: Wagner Francois, Save All Operator Performed By: #### L 7400.0280 #### [facility] [address] [place], [place], [id number] QC REV Comment Normal . [facility] Comment on above: Order Comment: Speci men Comment: [id number] Specimen Comment: No. of containers..01 ThinPrep Vial Result Comment: Francisco Mills, Save All Operator (ASCP) Performed By: #### L 7400.0280 #### [facility] [address] [place], [address] Cervical or vaginal specimen microscopic examination by liquid based cytology (reportOrdered By: Jolly Pandey on 04-26-2025 Cytology report Cyto stain.thin prep Doc (Cvx/Vag) Comment . [facility] Comment on above: Criteria not met, HP V Genotype not performed.Performed at: [address] [id number] Director: Kasey Johns MD, Phone: [phone] at: =[facility] [id number] Director: Kasey Johns MD, Phone: [phone] Cervical or vagninal specime n microscopic examination by cytology stain (reported asOrdered By: Jolly Pandey on 04-26-2025 Cytology report Cyto stain Doc (Cvx/Vag) Comment . [facility] Comment on above: The Pap smear is a s creening test designed to aid in thedetection of premalignant and malignant conditions of theuterine cervix. It is not a diagnostic procedure andshould not be used as the sole means of detecting cervicalcancer. Both false-positive and false-negative reports dooccur. Detection in cervical specim en of any of human papilloma virus (HPV) 16, 18, 31, 33,Ordered By: Jolly Pandey on 04-26-2025 HPV 16+18+31+33+35+39+4 5+51+52+56+58+59+66 +68 DNA Probe+sig amp Ql (Cvx) Negative Negative [facility] Comment on above: This nucleic acid am plification test detects fourteen high- risk HPV types (16,18,31,33,35,39,45,51,52,56,58,59,66,68)without differentiation. Laboratory - Chemistry and C hemistry - challengeOrdered By: Jolly Pandey on 04-26-2025 HCG ( test) Ql (U) Negative [facility] - CytologyOrdered By: Jolly Pandey on 04-26-2025 Save All Operator Cyto stain Nom (Cvx/Vag) [ID] Comment . [facility] Comment on above: Anais Francois Cyto logist Laboratory - Miscellaneous t estsOrdered By: Jolly Pandey on 04-26-2025 Service comment (Unsp spec) [Interp] . . [facility] No Panel InformationOrdered By: Jolly Pandey on 04-26-2025 Pap Smear QC Review Comment . [facility] Comment on above: Henrik Goodwin ytologist (ASCP) Pap Smear Specimen Adequacy Comment . [facility] Comment on above: Satisfactory for mony luation. Endocervical and/or squamous metaplasticcells (endocervical component) are present. No Panel Informationon 04-26 ADEQ Comment [employer]. Work Phone: COMM . [employer]. Work Phone: COMMENT Comment [employer]. Work Phone: DIAG Comment [employer].; [employer]ajah, [employer]. Work Phone: HPV APTIMA, HR Negative [employer].; Jajah, [employer]okono. Work Phone: HPV Farrah Rfx Comment [employer]. Work Phone: PAPSMR Comment [employer].; Jajah, [employer]. Work Phone: PERFORM Comment [employer]. Work Phone: QC REV Comment Normal [employer]; [employer] [facility] [employer] Work Phone: Surgery Specimen Level IV See Note Normal [employer]; Birdi [facility] [employer] [facility] Work Phone: Outreach Liaison Office Visit Reporton 04-26-2025 Outreach Liaison Office Visit Report [facility] [address], [address] [place] [address] OFFICE VISIT Date of Service: 04/26/25 MR#: [id number] Acct: [id number] Name: JESSA HERNANDEZ Rep #: [id number] : 1985 Provider: Dr. 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 Is patient in pain?: No Allergies sulfamethoxazole (From Bactrim) Allergy (Mild, Verified 04/26/25 09:32) Rash trimethoprim (From Bactrim) Allergy (Mild, Verified 04/26/25 09:32) Rash Medications ???Medication ???Instructions ???Recorded ???Confirmed ???Type B-complex with vitamin C 1 cap PO QDAY 04/11/25 04/26/25 Hi story cholecalciferol (vitamin D3) 25 25 mcg PO QDAY 04/11/25 04/26/25 H istory mcg (1,000 unit) capsule levothyroxine 88 mcg capsule 88 mcg PO DIRECTED 04/11/2512/15 History sertraline 25 mg tablet 37.5 mg PO DAILY 04/11/25 04/26/25 History Post menopausal: No Patient : No : No PFSH PFSH Medical History Anxiety Thyroid cancer 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 Pelvic congestion syndrome Vascular disease of abdomen Surgical History S/P endoscopy S/P colonoscopy H/O abdominal surgery Family History Grandmother Breast cancer Unknown Uterine cancer great aunt x2 Grandfather Colon cancer Father Hypertension Hyperlipidemia Aunt Ovarian cancer great aunt x2 Breast cancer great aunt x1 Social History Smoking Status: Never smoker alcohol intake: never substance use type: does not use additional social history: - Moises History 6 Elective abortions Hx Para 3 Spontaneous abortions Hx # Term Pregnancies Ectopic pregnancies Hx # Pregnancies Multiple births # of living children 2 Past Pregnancies Del. Date Name GA/Weeks Outcome Route Bth Weight Infant Gen Labor Lgth Anesthesia Del Locatn Provider FOB Unknown Deanne Unknown Khai Unknown Nargis 36 still Delivery Date: Last Updated by: Nargis Thakkar Trisomy 18 HPI EMB Details: JESSA HERNANDEZ is a 40 year old who presents for EMB and pap. Her Horizon test was negative for hereditary breast or ovarian cancer. She has concerns about an abdominal hernia from her prior surgeries. Wonders if we would fix this if hysterectomy would be needed. ultrasound shows: FINDINGS: LMP: April 10, 2025. Measurements: Uterus: 10.4 cm x 8.5 cm x 6.9 cm with a volume of 316.2 mL Endometrial Thickness: 11 mm. It is hyperechoic. Right Ovary: 3.2 cm x 2.2 cm x 2.5 cm with a volume of 9.04 mL. Left Ovary: 3.1 cm x 2.4 cm x 1.1 cm with a volume of 4.1 mL. Uterus: There are 2 uterine fibroids. The larger measures 3.5 cm 4.2 cm 3.1 cm. Endometrium: Endometrium measures 11 mm. This may be related to the patient's menstrual cycle. There is a 4 mm x 2 mm x 3 mm echogenic nodule with vascularity within the endometrium. This may represent a polyp. Right ovary: Follicles are seen within the ovary. Left ovary: Follicles are seen within the ovary. Other: No large pelvic mass identified. US/Transvaginal Non- IMPRESSION: Fibroid uterus. Questionable endometrial polyp. Ovarian follicles. ROS Const ROS Unobtainable: All systems reviewed are unremarkable except as noted in H Resp Resp: Reports system reviewed and no additional complaints, except as documented; Denies cough GI GI: Reports as per HPI Psych Psych: Reports system reviewed and no additional complaints, except as documented Exam Const General: cooperative, healthy appearing, comfortable and no acute distress Resp Effort Inspection: normal respiratory effort General: bimanual renal exam normal bilaterally External Female Exam: normal appearance of the urethra Urethra: normal appearance of the urethra Speculum Exam - Vagina: normal appearance of the vagina Speculum Exam - Cervix: normal appearance of the cervix Bimanual Exam- Adnexa, other: normal adnexae and normal Pelvic Support: normal Skin General: no rashes or lesions noted Psych Appearance: grossly normal Speech and Movement: speech and movement normal Office Procedures Endometrial Biopsy Endometrial Biopsy Test: Yes Negative Consent Signed: Yes Time out checklist: patient tenacul (more content not included)... Normal [facility] Surgery Specimen Level Gabriel 04-26-2025 Surgery Specimen Level IV ----- Patient Age/Sex Location Account Attending Physician ----- JESSA HERNANDEZ 40/F [facility] [id number] Guy Parsons ----- Specimen: [id number] Received: 04/26/25 Status: CARLOZ Guerra Num: [id number] Spec Type: ENDOM BX/C Katie Dr: Dr. Jolly Peck, DO HEADER OPERATION: Endometrial biopsy PRE-OP DIAGNOSIS: Menorrhagia TISSUE SUBMITTED: A- Endometrial lining ----- MICROSCOPIC DIAGNOSIS A. Endometrium, biopsy: Secretory endometrium. MICROSCOPIC DESCRIPTION Slides are reviewed. GROSS DESCRIPTION A. Received in formalin labeled with the patient's name and date of is a 2.2 x 0.7 x 0.2 cm aggregate of pena-pink tissue fragments. Entirely submitted in 1 cassette. [place] 04/26/2025 CPT:57255 ----- Patient Age/Sex Location Account Attending Physician ----- JESSA HERNANDEZ 40/F [facility] [id number] Guy Parsons ----- Signed (signature on file) Dr. Arti Weathers MD 05/01/25926 ----- Normal [facility] Comment on above: Performed By: #### P SUIV #### [facility] Laboratory [address] [facility]. [place], [place], [id number] Transvaginal Non-on 04-18-2025 Transvaginal Non- [facility] Imaging Services [address] [place], [place] [address] Transvaginal Non- MR#: [id number] Acct: [id number] Name: JESSA HERNANDEZ Gurvinder Rep #: [id number] : 1985 F 40 From: Delmar gutiérrez MD PCP: Mejia Pelayo MD Status: REG CLI Study: Transvaginal Non- Date of Exam: Exam# [id number] Ordering Dr: Jolly Peck DO PROCEDURE: TRANSVAGINAL NON- 04/18/2025 REASON FOR EXAM: PELVIC CONGESTION SYNDROM, MENORRHAGIA TECHNIQUE: TRANSVAGINAL NON- COMPARISON: None FINDINGS: LMP: April 10, 2025. Measurements: Uterus: 10.4 cm x 8.5 cm x 6.9 cm with a volume of 316.2 mL Endometrial Thickness: 11 mm. It is hyperechoic. Right Ovary: 3.2 cm x 2.2 cm x 2.5 cm with a volume of 9.04 mL. Left Ovary: 3.1 cm x 2.4 cm x 1.1 cm with a volume of 4.1 mL. Uterus: There are 2 uterine fibroids. The larger measures 3.5 cm 4.2 cm 3.1 cm. Endometrium: Endometrium measures 11 mm. This may be related to the patient's menstrual cycle. There is a 4 mm x 2 mm x 3 mm echogenic nodule with vascularity within the endometrium. This may represent a polyp. Right ovary: Follicles are seen within the ovary. Left ovary: Follicles are seen within the ovary. Other: No large pelvic mass identified. US/Transvaginal Non- IMPRESSION: Fibroid uterus. Questionable endometrial polyp. Ovarian follicles. Reading Location: [id number] CC: Dr. Jolly Peck DO; Mejia Pelayo MD Frothing Machine Operator: Signed Normal [facility] Breast imaging reportOrdered By: Delmar Amin on 04-11-2025 Study report [facility] Imaging Services [address] [place] [address] SCRN MAMM (CAD)W/JOSUÉ BILAT MR#: [id number] Acct: [id number] Name: JESSA HERNANDEZ Rep #: [id number] : 1985 F 40 From: Will Amin MD PCP: Mejia Pelayo MD Status: REG CLI Study:SCRN MAMM (CAD)W/JOSUÉ BILAT Date of Exa m: 04/11/25 Exam# [id number] Ordering Dr: Jolly Wallace DO EXAM: SCRN MAMM (CAD)W/JOSUÉ BILAT DATE: 04/11/2025 CLINICAL HISTORY: F, Age 40 y/o , SCREENING TECHNIQUE: SCRN MAMM (CAD)W/JOSUÉ BILAT COMPARISON: This is a baseline study. FINDINGS: TISSUE DENSITY: The breasts are extremely dense, which lowers the sensitivity ofmammography. Bilateral Breast Mammographic Findings: No significant masses, calcifications or other abnormalities are identified. No suspicious masses, areas of developing architectural distortion, or suspicious calcifications. There has been no significant interval change. BI/SCRN MAMM (CAD)W/JOSUÉ BILAT IMPRESSION: Routine annual follow-up recommended. OVERALL FINAL ASSESSMENT BI-RADS 1: NEGATIVE. RECOMMENDATION: Routine annual follow-up in 1 Year A letter with findings and recommendations will be mailed to the patient. Reading Location: [id number] CC: Dr. Jolly Peck DO; Mejia Pelayo MD ~ Frothing Machine Operator: Signed [facility] Estradiolon 04-11-2025 ESTRADIOL 58.7 pg/mL Normal [facility] Comment on above: Result Comment: FEMA LES ADULT FEMALE: Premenopausal: 15-350 pg/mL(E2 levels vary widely through the menstrual cycle) Postmenopausal: <10 pg/mL JOEY STAGES MEAN AGE REFERENCE RANGES Stage I(>14 days and prepubertal) 7.1 years Undetectable-20 pg/mLL Stage II 10.5 years Undetectable-24 pg/mL Stage III 11.6 years Undetectable-60 pg/mL Stage IV 12.3 years 15-85 pg/mL Stage V 14.5 years 15-350 pg/mL Puberty onset (transition from Joey stage I to Joey stage II) occurs for girls at a median age of 10.5 (/- 2) years. There is evidence that it may occur up to 1 year earlier in obese girls and in girls. Progression through Joey stages is variable. Joey stage V (adult) should be reached by age 18. Performed By: #### L 900.0098, L3100.5055, L3300.1750 #### [facility] Laboratory [address] [place], [address] FSH and LHon 04-11-2025 FSH 7.5 mIU/mL Normal [facility] Comment on above: Result Comment: FEMA LE: Follicular: 1.4 - 18.1 mIU/mL Midcycle: 3.4 - 33.4 mIU/mL Luteal: 1.5 - 9.1 mIU/mL Post Menopause: 23.0 - 116.3 mIU/mL MALE: 1.4 - 18.1 mIU/mL Performed By: #### L 900.0098, L3100.5055, L3300.1750 #### [facility] [address] [place], [place], [address] LH 4.9 mIU/mL Normal [facility] Comment on above: Result Comment: FEMA LE: Follicular: 1.9-12.5 mIU/mL Midcycle: 8.7-76.3 mIU/mL Luteal: 0.5-16.9 mIU/mL Post Menopause: 15.9-54.0 mIU/mL MALE: 20-70 Years: 1.5-9.3 mIU/mL >70 Years: 3.1-34.6 mIU/mL Performed By: #### L 900.0098, L3100.5055, L3300.1750 #### [facility] [address] [place], [place], [id number] LH ser/plasOrdered By: Mirlande Pandey on 04-11-2025 Lutropin Qn 4.9 m[IU]/mL [facility] Comment on above: FEMALE:Follicular: 1 .9-12.5 mIU/mLMidcycle: 8.7-76.3 mIU/mLLuteal: 0.5-16.9 mIU/mLPost Menopause: 15.9-54.0 mIU/mLMALE:20-70 Years: 1.5-9.3 mIU/mL>70 Years: 3.1-34.6 mIU/mL NATERAon 04-11-2025 VERNA SEE SCANNED REPORT Normal [facility] Comment on above: Performed By: #### L 900.0098, L3100.5055, L3300.1750 #### [facility] [address] [place], [address] No Panel Informationon 04-11 FSH 7.5 m[iU]/mL Normal [facility], [place], [facility]. Work Phone: LH 4.9 m[iU]/mL Normal [facility], [place], [facility]. Work Phone: Outreach Liaison Office Visit Reporton 04-11-2025 Outreach Liaison Office Visit Report [facility] [address], [address] [place] [address] OFFICE VISIT Date of Service: 04/11/25 MR#: [id number] Acct: [id number] Name: JESSA HERNANDEZ Rep #: [id number] : 1985 Provider: Dr. 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: No Is patient in pain?: No Allergies sulfamethoxazole (From Bactrim) Allergy (Mild, Verified 04/11/25 08:45) Rash trimethoprim (From Bactrim) Allergy (Mild, Verified 04/11/25 08:45) Rash Medications ???Medication ???Instructions ???Recorded ???Confirmed ???Type B-complex with vitamin C 1 cap PO QDAY 04/11/25 04/11/25 Hi story cholecalciferol (vitamin D3) 25 25 mcg PO QDAY 04/11/25 04/11/25 H istory mcg (1,000 unit) capsule levothyroxine 88 mcg capsule 88 mcg PO DIRECTED 04/11/25 History sertraline 25 mg tablet 37.5 mg PO DAILY 04/11/25 04/11/25 History Post menopausal: No Patient : No [facility] Anxiety Thyroid cancer 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 Pelvic congestion syndrome Vascular disease of abdomen Surgical History S/P endoscopy S/P colonoscopy H/O abdominal surgery Family History (Updated 04/11/25 @ 09:42 by Nargis Thakkar) Grandmother Breast cancer Unknown Uterine cancer great aunt x2 Grandfather Colon cancer Father Hypertension Hyperlipidemia Aunt Ovarian cancer x2 Social History Smoking Status: Never smoker alcohol intake: never substance use type: does not use additional social history: - Moises HPI Discuss several problems Details: The patient is a 40-year-old female presenting with concerns related to pelvic congestion syndrome, fibroids, and menopausal symptoms. 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 She underwent extensive testing and consultations with specialists, and although surgery was recommended, she opted to manage the condition conservatively due to potential surgical complications. The patient reports experiencing hair loss, weight loss, lack of appetite, and increased urinary frequency since turning 40. She also describes gastrointestinal disturbances, including diarrhea, and suspects these symptoms may be related to menopausal changes, as her mother experienced early menopause. The patient has a history of thyroid cancer and is currently on levothyroxine therapy, with regular monitoring of thyroid levels. She notes that her periods have become increasingly painful, often localized to the right side, and suspects fibroids may be contributing to her symptoms. The patient has a significant family history of breast and ovarian cancer, with her grandmother and two great-aunts affected. She has undergone genetic testing for BRCA mutations, which may influence her decision regarding surgical interventions. Attestation: Documentation on this patient encounter was supported using ambient scribe technology/ voice AI technology. The patient consented to recording for the purpose of documenting the encounter. Provider reviewed content of the generated note prior to signature. History 6 Elective abortions Hx Para 3 Spontaneous abortions Hx # Term Pregnancies Ectopic pregnancies Hx # Pregnancies Multiple births # of living children 2 Past Pregnancies Del. Date Name GA/Weeks Outcome Route Bth Weight Infant Gen Labor Lgth Anesthesia Del Locatn Provider FOB Unknown Deanne Unknown Khai Unknown Nargis 36 still Delivery Date: Last Updated by: Nargis Thakkar Trisomy 18 ROS Const ROS Unobtainable: All systems reviewed are unremarkable except as noted in H Resp Resp: Reports system reviewed and no additional complaints, except as documented; Denies cough GI GI: Reports as per HPI Psych Psych: Reports system reviewed and no additional complaints, except as documented Exam Const General: cooperative, healthy appearing, comfortable and no acute distress Resp Effort Inspection: normal respiratory effort Skin General: no rashes or lesions noted Psych Appearance: grossly normal Speech and Movement: speech and movement normal Coding Level of Care Code Off vis,est,level 4 Diagnoses Female climacteric state N95.1 Vascular disease of ab (more content not included)... Normal [facility] SCRN MAMM (CAD)W/JOSUÉ BILATo n 04-11-2025 SCRN MAMM (CAD)W/JOSUÉ BILAT [facility] Imaging Services [address] [place] [id number] SCRN MAMM (CAD)W/JOSUÉ BILAT MR#: [id number] Acct: [id number] Name: JESSA HERNANDEZ Rep #: [id number] : 1985 F 40 From: Delmar gutiérrez MD PCP: Mejia Pelayo MD Status: REG CLI Study: SCRN MAMM (CAD)W/JOSUÉ BILAT Date of Exam: 03/24 Exam# [id number] Ordering Dr: Jolly Peck DO EXAM: SCRN MAMM (CAD)W/JOSUÉ BILAT DATE: 04/11/2025 CLINICAL HISTORY: F, Age 40 y/o , SCREENING TECHNIQUE: SCRN MAMM (CAD)W/JOSUÉ BILAT COMPARISON: This is a baseline study. FINDINGS: TISSUE DENSITY: The breasts are extremely dense, which lowers the sensitivity of mammography. Bilateral Breast Mammographic Findings: No significant masses, calcifications or other abnormalities are identified. No suspicious masses, areas of developing architectural distortion, or suspicious calcifications. There has been no significant interval change. BI/SCRN MAMM (CAD)W/JOSUÉ BILAT IMPRESSION: Routine annual follow-up recommended. OVERALL FINAL ASSESSMENT BI-RADS 1: NEGATIVE. RECOMMENDATION: Routine annual follow-up in 1 Year A letter with findings and recommendations will be mailed to the patient. Reading Location: [facility] CC: Dr. Jolly Peck DO; Mejia Pelayo MD Frothing Machine Operator: Signed Normal [facility] Serum or plasma estradiol me asurement after follitropin dose (mass/volume)Ordered By: Jolly Pandey on 04-11-2025 E2 post dose follitropin [Mass/Vol] 58.7 pg/mL [facility] Comment on above: FEMALES ADULT FEMALE : Premenopausal: 15-350 pg/mL(E2 levels vary widely through the menstrual cycle) Postmenopausal: <10 pg/mL JOEY STAGES MEAN AGE REFERENCE RANGES Stage I(>14 days and prepubertal) 7.1 years Undetectable-20 pg/mLL Stage II 10.5 years Undetectable-24 pg/mL Stage III 11.6 years Undetectable-60 pg/mL Stage IV 12.3 years 15-85 pg/mL Stage V 14.5 years 15-350 pg/mL Puberty onset (transition from Joey stage I to Joey stage II) occurs for girls at a median age of 10.5 (/- 2) years. There is evidence that it may occur up to 1 year earlier in obese girls and in girls.Progression through Joey stages is variable. Joey stage V (adult) should be reached by age 18. .Thyroglobulin by SARITA [id number] on 11-23-2024 Thyroglob SARITA <0.1 Low 1.5-38.5 [facility] Comment on above: Result Comment: According to the National Academy of Clinical Biochemistry, the reference interval for Thyroglobulin (TG) should be related to euthyroid patients and not for patients who underwent thyroidectomy. TG reference intervals for these patients depend on the residual mass of the thyroid tissue left after surgery. Establishing a post-operative baseline is recommended. The assay limit of quantitation is 0.1 ng/mL Thyroglobulin measured by Charles Curt Immunometric Assay Performed At: [facility] [id number] Elia Ojeda PhD Ph:[phone] Performed By: #### T , [id number], [id number] #### [place] [id number] THYRORFon 11-23-2024 Thyroglob Ab <1.0 Normal 0.0-0.9 [facility] Comment on above: Result Comment: Thyr oglobulin Antibody measured by Charles Curt Methodology It should be noted that the presence of thyroglobulin antibodies may not be pathogenic nor diagnostic, especially at very low levels. The assay rubber roller grinder has found that four percent of individuals without evidence of thyroid disease or autoimmunity will have positive TgAb levels up to 4 IU/mL. Performed At: [facility] [address] [place], [place] [id number] Elia Ojeda PhD Ph:[phone] Performed By: #### T VERN, 800322, 604792 #### [place] [address] TSHon 11-21-2024 TSH 3.628 mIU/mL Normal 0.550-4.780 [facility] Comment on above: Performed By: #### T VERN, [id number], [id number] #### [place] [address] Laboratory - Chemistry and C hemistry - challengeon 07-17-2024 Bilirubin Ql (U) Negative Normal [facility], [facility].; [facility] Ketones Ql (U) Negative Normal [facility], [facility].; [facility] pH (U) 6.0 [pH] Normal [facility], [facility].; [facility] Specific gravity (U) [Rel density] 1.025 Normal [facility], [facility].; [facility] Laboratory - Hematology and Cell countson 07-17-2024 Hemoglobin Ql (U) + Abnormal [facility], [facility].; [facility] Laboratory - Specimen inform ationon 07-17-2024 Appearance (U) CLEAR Normal [facility] Color (U) YELLOW Normal [facility], [facility]. Laboratory - Urinalysison Glucose Test strip (U) [Mass/Vol] Negative Normal [facility]; [facility], [facility]. Leukocyte esterase Test strip Ql (U) Negative Normal [facility]; [facility], [facility]. Nitrite Ql (U) Negative Normal [facility].; [facility] Protein Ql (U) Negative Normal [facility].; [facility], [facility]. No Panel Informationon 07-17 UA - ODOR Negative [facility].; [facility], [facility]. UA - UROBILIGEN [address] [facility].; [facility], [facility]. Laboratory - Chemistry and C hemistry - challengeon 09-10-2023 Bilirubin Ql (U) Negative [facility].; [facility], [place], [facility]. Ketones Ql (U) Negative [facility].; [facility], [place], [facility]. pH (U) 6.0 [pH] [facility].; [facility], [place], [facility]. Specific gravity (U) [Rel density] 1.020 [facility].; [facility], [place] Laboratory - Hematology and Cell countson 09-10-2023 Hemoglobin Ql (U) Negative Normal [facility].; [facility], [place], [facility]. Laboratory - Specimen inform ationon 09-10-2023 Appearance (U) CLEAR [facility].; [facility], [place], [facility]. Color (U) YELLOW [facility].; [facility], [place] Laboratory - Urinalysison Glucose Test strip (U) [Mass/Vol] Negative [facility].; [facility], [place], [facility]. Leukocyte esterase Test strip Ql (U) Negative Normal [facility]; [facility], [place], [facility]. Nitrite Ql (U) Negative Normal [facility].; [facility], [place], [facility]. Protein Ql (U) Negative Normal [facility].; [facility], [place], [facility]. No Panel Informationon 09-10 UA - ODOR Negative Normal [facility]; [facility], [place], [facility]. UA - UROBILIGEN 0.[address] [facility].; [facility], [place], [facility]. Laboratory - Chemistry and C hemistry - challengeon 06-14-2023 Bilirubin Ql (U) Negative Normal [facility].; [facility], [place], [facility]. Ketones Ql (U) Negative Normal [facility].; [facility], [place], [facility]. pH (U) 6 [pH] Abnormal 4.6 - 8.0 [facility]; [facility], [place], [facility]. Specific gravity (U) [Rel density] 1.010 Normal [facility]; [facility], [place], [facility]. Laboratory - Hematology and Cell countson 06-14-2023 Hemoglobin Ql (U) HEMOLYZED 1+ Abnormal [facility]; [facility], [place], [facility]. Laboratory - Specimen inform ationon 06-14-2023 Appearance (U) CLEAR Normal [facility].; [facility], [place], [facility]. Color (U) pale yellow Normal [facility]; [facility], [place], [facility]. Laboratory - Urinalysison Glucose Test strip (U) [Mass/Vol] Negative Normal [facility]; [facility], [place], [facility]. Leukocyte esterase Test strip Ql (U) Negative Normal [facility]; [facility], [place] Nitrite Ql (U) Negative Normal [facility].; [facility], [place], [facility]. Protein Ql (U) Negative Normal [facility].; [facility], [facility]. Laboratory - Chemistry and C hemistry - challengeon 05-19-2023 Bilirubin Ql (U) Negative Normal [facility].; [facility], [facility]. Ketones Ql (U) Negative Normal [facility].; [facility], [facility]. pH (U) 6.0 [pH] Normal [facility]; [facility], [facility]. Specific gravity (U) [Rel density] 1.015 Normal [facility]; [facility], [facility]. Laboratory - Hematology and Cell countson 05-19-2023 Hemoglobin Ql (U) HEMOLYZED TRACE Abnormal [facility].; [facility], [facility]. Laboratory - Specimen inform ationon 05-19-2023 Appearance (U) CLEAR Normal [facility].; [facility], [facility]. Color (U) YELLOW [facility].; [facility], [facility]. Laboratory - Urinalysison Glucose Test strip (U) [Mass/Vol] Negative [facility].; [facility], [facility]. Leukocyte esterase Test strip Ql (U) Negative [facility].; [facility], [facility]. Nitrite Ql (U) Negative [facility].; [facility], [facility] Protein Ql (U) Negative [facility].; [facility], [facility]. No Panel Informationon 05-19 UA - ODOR Negative [facility].; [facility] UA - UROBILIGEN 0.2 [facility].; [facility], [facility]. Technical Specialist Cytology Reporton 2022 Technical Specialist Cytology Report . Pathology Reports Accession: Collected Date/Time: Received Date/Time: Pathologist: [id number] 01/20/2023 12:14 EDT 01/20/2023 18:00 EDT Technical Specialist Cytology Report SPECIMEN: Specimen Description: Liquid Prep Reflex ASCUS Specimen: No Source Given Screening or Diagnostic: Screening RELEVANT HISTORY: LMP: 12/27/2022 SPECIMEN ADEQUACY: SATISFACTORY FOR EVALUATION Endocervical/Transformational zone component absent/insufficient INTERPRETATION/RESULTS: NEGATIVE FOR INTRAEPITHELIAL LESION OR MALIGNANCY COMMENT: This Pap Test was successfully processed and evaluated with the assistance of the [employer] ThinPrep Test Imaging System. Electronically Signed by Pathology report verified by [facility] Screened by: [place] Electronically signed by Gayatri BELLA (ASCP) Sign-Out Date: 01/28/2023 13:18 Performing Lab: [address] Pathology Dept Disclaimer The Pap test is a screening test for cervical cancer. As evidenced by published data, it is subject to both inherent false negative and false positive results. Your patient's results should be interpreted in context with pertinent clinical history including gynecological examination. Normal [facility] ([place]) .Auto Diffon 01-20-2023 Basophil, Absolute 0.1 10 3/mcL Normal 0.0-0.3 [facility] ([place]) Comment on above: Performed By: #### G FR, ADIFF, CMP, CBC, TSH, LIPID, FE, ANEU #### [place] [address] Basophils/100 WBC (Bld) 0.9 % Normal 0.0 - 2.5 % [facility] [facility] [place] Comment on above: Performed By: #### G FR, ADIFF, CMP, CBC, TSH, LIPID, FE, ANEU #### [address] [address] Eosinophil, Absolute 0.1 10 3/mcL Normal 0.0-0.7 [facility] ([place] Comment on above: Performed By: #### G FR, ADIFF, CMP, CBC, TSH, LIPID, FE, ANEU #### [address] [address] Eosinophils/100 WBC (Bld) 1.2 % Normal 0.0 - 6.0 % [facility] ([place]) Comment on above: Performed By: #### G FR, ADIFF, CMP, CBC, TSH, LIPID, FE, ANEU #### [address] [address] Lymphocyte, Absolute 1.7 10 3/mcL Normal 0.9-4.3 [facility] ([place]) Comment on above: Performed By: #### G FR, ADIFF, CMP, CBC, TSH, LIPID, FE, ANEU #### [address] [address] Lymphocytes/100 WBC (Bld) 23.8 % Normal 20.0 - 40.0 % [facility] ([place]) Comment on above: Performed By: #### G FR, ADIFF, CMP, CBC, TSH, LIPID, FE, ANEU #### [address] [address] Monocyte, Absolute 0.4 10 3/mcL Normal 0.1-1.4 [facility] ([place]) Comment on above: Performed By: #### G FR, ADIFF, CMP, CBC, TSH, LIPID, FE, ANEU #### [address] [address] Monocytes/100 WBC (Bld) 5.6 % Normal 2.0 - 13.0 % [facility] ([place]) Comment on above: Performed By: #### G FR, ADIFF, CMP, CBC, TSH, LIPID, FE, ANEU #### [address] [address] Neutrophils/100 WBC (Bld) 68.5 % Normal 50.0 - 75.0 % [facility] ([place]) Comment on above: Performed By: #### G FR, ADIFF, CMP, CBC, TSH, LIPID, FE, ANEU #### [address] [address] .GFRon 01-20-2023 GFR >60 Normal [facility] ([place]) Comment on above: Result Comment: GFR Population mean for , Non- Americans Ages 20-29 = 116 mL/min/1.73 sq.m. Ages 30-39 = 107 mL/min/1.73 sq.m. Ages 40-49 = 99 mL/min/1.73 sq.m. Ages 50-59 = 93 mL/min/1.73 sq.m. Ages 60-69 = 85 mL/min/1.73 sq.m. Ages 70+ = 75 mL/min/1.73 sq.m. Chronic Kidney Disease: Less than 60 mL/min/1.73 square meters End Stage Renal Disease: Less than 15 mL/min/1.73 square meters Performed By: #### G FR, ADIFF, CMP, CBC, TSH, LIPID, FE, ANEU #### [address] [address] GFR Non- >60 Normal [facility] ([place] Comment on above: Result Comment: GFR Population mean for , Non- Americans Ages 20-29 = 116 mL/min/1.73 sq.m. Ages 30-39 = 107 mL/min/1.73 sq.m. Ages 40-49 = 99 mL/min/1.73 sq.m. Ages 50-59 = 93 mL/min/1.73 sq.m. Ages 60-69 = 85 mL/min/1.73 sq.m. Ages 70+ = 75 mL/min/1.73 sq.m. Chronic Kidney Disease: Less than 60 mL/min/1.73 square meters End Stage Renal Disease: Less than 15 mL/min/1.73 square meters Performed By: #### G FR, ADIFF, CMP, CBC, TSH, LIPID, FE, ANEU #### [address] [address] .NEUABSon 01-20-2023 Neutrophil, Absolute 4.8 10 3/mcL Normal 2.3-8.1 [facility] ([place] Comment on above: Performed By: #### G FR, ADIFF, CMP, CBC, TSH, LIPID, FE, ANEU #### [address] [address] CBCon 01-20-2023 Erythrocyte distribution width (RBC) [Ratio] 12.9 % Normal 11.5 - 15.5 % [facility]; [facility]. Comment on above: Performed By: #### G FR, ADIFF, CMP, CBC, TSH, LIPID, FE, ANEU #### [place] [address] Hematocrit (Bld) [Volume fraction] 41.7 % Normal 34.0 - 46.0 % [facility]; [facility]. Comment on above: Performed By: #### G FR, ADIFF, CMP, CBC, TSH, LIPID, FE, ANEU #### [place] [address] Hgb 13.8 G/dL Normal 12.0-16.0 [facility] ([place] Comment on above: Performed By: #### G FR, ADIFF, CMP, CBC, TSH, LIPID, FE, ANEU #### [place] [address] MCH (RBC) [Entitic mass] 30.5 pg Normal 27.0 - 33.0 pg [facility]; [facility]. Comment on above: Performed By: #### G FR, ADIFF, CMP, CBC, TSH, LIPID, FE, ANEU #### [place] [address] MCHC 33.1 G/dL Normal 32.0-36.0 [facility] ([place] Comment on above: Performed By: #### G FR, ADIFF, CMP, CBC, TSH, LIPID, FE, ANEU #### [place] [address] MCV (RBC) [Entitic vol] 92.1 fL Normal 80.0 - 99.0 fL [facility]; [facility]. Comment on above: Performed By: #### G FR, ADIFF, CMP, CBC, TSH, LIPID, FE, ANEU #### [place] [address] Platelet 302 10 3/mcL Normal 150-450 [facility] ([place] Comment on above: Performed By: #### G FR, ADIFF, CMP, CBC, TSH, LIPID, FE, ANEU #### [place] [address] Platelet mean volume (Bld) [Entitic vol] 7.9 fL Normal 6.6 - 10.5 fL [facility]; [facility]. Comment on above: Performed By: #### G FR, ADIFF, CMP, CBC, TSH, LIPID, FE, ANEU #### [address] [address] RBC 4.52 10 6/mcL Normal 4.10-5.30 [facility] Comment on above: Performed By: #### G FR, ADIFF, CMP, CBC, TSH, LIPID, FE, ANEU #### [place] [address] WBC 6.9 10 3/mcL Normal 4.5-10.8 [facility] Comment on above: Performed By: #### G FR, ADIFF, CMP, CBC, TSH, LIPID, FE, ANEU #### [address] [address] CMPon 01-20-2023 Albumin Level 4.1 G/dL Normal 3.2-4.8 [facility]) Comment on above: Performed By: #### G FR, ADIFF, CMP, CBC, TSH, LIPID, FE, ANEU #### [place] [address] Albumin/Globulin [Mass ratio] 1.3 {ratio} Normal 0.9 - 1.6 {ratio} [facility]; [facility]. Comment on above: Performed By: #### G FR, ADIFF, CMP, CBC, TSH, LIPID, FE, ANEU #### [place] [address] ALP [Catalytic activity/Vol] 66 U/L Normal 38 - 126 U/L [facility]; [facility] Comment on above: Performed By: #### G FR, ADIFF, CMP, CBC, TSH, LIPID, FE, ANEU #### [place] [address] ALT [Catalytic activity/Vol] 12 U/L Normal 10-49 [facility] ([place] Comment on above: Performed By: #### G FR, ADIFF, CMP, CBC, TSH, LIPID, FE, ANEU #### [place] [address] AST [Catalytic activity/Vol] 16 U/L Normal 8 - 34 U/L [facility]; [facility]. Comment on above: Performed By: #### G FR, ADIFF, CMP, CBC, TSH, LIPID, FE, ANEU #### [place] [address] Bili Total 0.80 mg/dL Normal 0.20-1.20 [facility] ([place] Comment on above: Result Comment: Use of this assay is not recommended for patients undergoing treatment with eltrombopag due to the potential for falsely elevated results. Performed By: #### G FR, ADIFF, CMP, CBC, TSH, LIPID, FE, ANEU #### [place] [address] BUN/Creatinine Ratio 16.4 ratio Normal 10.0-22.0 [facility] ([place] Comment on above: Performed By: #### G FR, ADIFF, CMP, CBC, TSH, LIPID, FE, ANEU #### [place] [address] Calcium [Mass/Vol] 9.3 mg/dL Normal 8.7 - 10. 4 mg/dL [facility], [facility].; [facility], [facility]. Comment on above: Performed By: #### G FR, ADIFF, CMP, CBC, TSH, LIPID, FE, ANEU #### [place] [address] Chloride [Moles/Vol] 105 mmol/L Normal 98 - 110 meq/L [facility], [facility].; [facility] Comment on above: Performed By: #### G FR, ADIFF, CMP, CBC, TSH, LIPID, FE, ANEU #### [address] [address] CO2 [Moles/Vol] 27 mmol/L Normal 22 - 32 meq/L [facility]; [facility] Comment on above: Performed By: #### G FR, ADIFF, CMP, CBC, TSH, LIPID, FE, ANEU #### [address] [address] Creatinine [Mass/Vol] 0.67 mg/dL Normal 0.50 - 1.20 mg/dL [facility]; [facility] Comment on above: Performed By: #### G FR, ADIFF, CMP, CBC, TSH, LIPID, FE, ANEU #### [address] [address] Electrolyte Balance 6.0 mEq/L Normal 4.0 - 15 .0 meq/L [facility]; [facility]. Comment on above: Performed By: #### G FR, ADIFF, CMP, CBC, TSH, LIPID, FE, ANEU #### [address] [address] Globulin 3.1 G/dL Normal 1.5-3.8 [facility] ([place] Comment on above: Performed By: #### G FR, ADIFF, CMP, CBC, TSH, LIPID, FE, ANEU #### [address] [address] Glucose [Mass/Vol] 92 mg/dL Normal 70 - 110 mg/dL [facility]; [facility] Comment on above: Performed By: #### G FR, ADIFF, CMP, CBC, TSH, LIPID, FE, ANEU #### [address] [address] Potassium [Moles/Vol] 4.1 mmol/L Normal 3.5 - 5.0 meq/L [facility]; [facility]. Comment on above: Performed By: #### G FR, ADIFF, CMP, CBC, TSH, LIPID, FE, ANEU #### [address] [address] Sodium [Moles/Vol] 138 mmol/L Normal 136 - 145 meq/L [facility]; [facility]. Comment on above: Performed By: #### G FR, ADIFF, CMP, CBC, TSH, LIPID, FE, ANEU #### [address] [address] Total Protein 7.2 G/dL Normal 5.7-8.2 [facility] ([place] Comment on above: Result Comment: No te - New Reference Range in effect 20 Performed By: #### G FR, ADIFF, CMP, CBC, TSH, LIPID, FE, ANEU #### [address] [address] Urea nitrogen [Mass/Vol] 11.0 mg/dL Normal 8.0 - 22.0 mg/dL [facility]; [facility]. Comment on above: Performed By: #### G FR, ADIFF, CMP, CBC, TSH, LIPID, FE, ANEU #### [address] [address] FEon 01-20-2023 Iron [Mass/Vol] 116 ug/dL Normal 50 - 170 ug/dL [facility]; [facility]. Comment on above: Performed By: #### G FR, ADIFF, CMP, CBC, TSH, LIPID, FE, ANEU #### [address] [address] LIPIDon 01-20-2023 Cholesterol [Mass/Vol] 205 mg/dL Abnormal 50 - 199 mg/dL [facility]; [facility]. Comment on above: Result Comment: Chol esterol Reference Interval: Less than 200 Desirable 200-239 Borderline high risk 240 and above High risk Performed By: #### G FR, ADIFF, CMP, CBC, TSH, LIPID, FE, ANEU #### [address] [address] Cholesterol in HDL [Mass/Vol] 84 mg/dL Abnormal 40 - 59 mg/dL [facility]; [facility]. Comment on above: Performed By: #### G FR, ADIFF, CMP, CBC, TSH, LIPID, FE, ANEU #### [address] [address] Cholesterol in LDL [Mass/Vol] 108 mg/dL Normal 0 - 129 mg/dL [facility]; [facility], [facility]. Comment on above: Performed By: #### G FR, ADIFF, CMP, CBC, TSH, LIPID, FE, ANEU #### [address] [address] Triglyceride [Mass/Vol] 67 mg/dL Normal 3 - 149 mg/dL [facility]; [facility]. Comment on above: Performed By: #### G FR, ADIFF, CMP, CBC, TSH, LIPID, FE, ANEU #### [address] [address] Laboratory - Chemistry and C hemistry - challengeon 01-20-2023 Albumin BCP dye [Mass/Vol] 4.1 g/dL Normal 3.2 - 4.8 g/dL [facility]; [facility], [facility]. ALT No additional P-5'-P [Catalytic activity/Vol] 12 U/L Normal 10 - 49 U/L [facility]; [facility], [facility]. ALT With P-5'-P [Catalytic activity/Vol] 12 U/L Normal 10 - 49 U/L [facility]; [facility] AST With P-5'-P [Catalytic activity/Vol] 16 U/L Normal 8 - 34 U/L [facility]; [facility] Bilirubin [Mass/Vol] 0.80 mg/dL Normal 0.20 - 1.20 mg/dL [facility]; [facility] Bilirubin Ql (U) Negative Normal [facility]; [facility], [facility]. GFR/1.73 sq M.predicted among blacks MDRD (S/P/Bld) [Vol rate/Area] mL/min/{1.73_m2} Normal [facility]; [facility]. Work Phone: GFR/1.73 sq M.predicted among non-blacks MDRD (S/P/Bld) [Vol rate/Area] mL/min/{1.73_m2} Normal [facility]; [facility]. Work Phone: Globulin (S) [Mass/Vol] 3.1 g/dL Normal 1.5 - 3.8 g/dL [facility]; [facility] Ketones Ql (U) Negative Normal [facility]; [facility], [facility] pH (U) 7.0 [pH] Normal [facility]; [facility] Protein [Mass/Vol] 7.2 g/dL Normal 5.7 - 8.2 g/dL [facility]; [facility], [facility] Specific gravity (U) [Rel density] 1.015 Normal [facility]; [facility] TSH Qn 0.641 m[IU]/L Normal 0.550 - 4.780 m[iU]/mL [facility]; [facility] Urea nitrogen/Creatinine [Mass ratio] 16.4 {ratio} Normal 10.0 - 22.0 {ratio} [facility].; [facility] Laboratory - Hematology and Cell countson 01-20-2023 Basophils (Bld) [#/Vol] 0.1 {10^3/mcL} Normal 0.0 - 0.3 {10^3/mcL} [facility].; [facility] Work Phone: Hemoglobin (Bld) [Mass/Vol] 13.8 g/dL Normal 12.0 - 16.0 g/dL [facility].; [facility] Hemoglobin Ql (U) +++ Abnormal [facility].; [facility] Lymphocytes (Bld) [#/Vol] 1.7 {10^3/mcL} Normal 0.9 - 4.3 {10^3/mcL} [facility].; [facility] Work Phone: MCHC (RBC) [Mass/Vol] 33.1 g/dL Normal 32.0 - 36.0 g/dL [facility]; [facility] Monocytes (Bld) [#/Vol] 0.4 {10^3/mcL} Normal 0.1 - 1.4 {10^3/mcL} [facility].; [facility]. Work Phone: Neutrophils (Bld) [#/Vol] 4.8 {10^3/mcL} Normal 2.3 - 8.1 {10^3/mcL} [facility].; [facility], [employer]. Work Phone: Platelets (Bld) [#/Vol] 302 {10^3/mcL} Normal 150 - 450 {10^3/mcL} [facility].; [facility] RBC (Bld) [#/Vol] 4.52 {10^6/mcL} Normal 4.10 - 5.30 {10^6/mcL} [employer] [facility], [employer].; [facility] WBC (Bld) [#/Vol] 6.9 {10^3/mcL} Normal 4.5 - 10 .8 {10^3/mcL} [employer] [facility], [facility] [employer] [facility] Laboratory - Specimen inform ationon 01-20-2023 Appearance (U) cLEAR Normal [employer] [facility].; [facility] [employer] [facility], [facility] Color (U) yELLOW Normal [facility] [employer] [facility].; [employer] [facility] [employer] [facility], [facility] Laboratory - Urinalysison Glucose Test strip (U) [Mass/Vol] Negative Normal [facility] [employer] [facility] [employer] [facility] Leukocyte esterase Test strip Ql (U) Negative Normal [facility] [employer] [facility] [employer] [facility] [employer] [facility], [facility] Nitrite Ql (U) Negative Normal [facility] [employer] [facility].; [facility] [employer] [facility], [facility] Protein Ql (U) TRACE Abnormal [employer] [facility].; [employer] [facility] [employer] [facility] [employer] [facility], [facility] No Panel Informationon 01-20 Eosinophil, Absolute 0.1 {10^3/mcL} Normal 0.0 - 0.7 {10^3/mcL} [employer] [facility], [facility].; [employer] [facility] [employer] [facility], mokono. Work Phone: Technical Specialist Cytology Report See Note Normal [facility]; [employer] [facility] [employer] [facility], [facility] UA - ODOR Negative Normal [facility] [employer] [facility] [employer] [facility] [employer] [facility], [facility]. UA - UROBILIGEN 0.2 Normal [employer] [facility] [employer] [facility] [employer] [facility], Inc[facility] TSHon 01-20-2023 TSH 0.641 mIU/mL Normal 0.550-4.780 [facility] ([place] Comment on above: Result Comment: No te - New Reference Range in effect 20 Performed By: #### G FR, ADIFF, CMP, CBC, TSH, LIPID, FE, ANEU #### [place] [address] Laboratory - Chemistry and C hemistry - challengeon 11-19-2022 Bilirubin Ql (U) Negative Normal [facility] [employer] [facility] Ketones Ql (U) Negative Normal [facility] [employer] [facility], [facility].; [facility] [employer] [facility], Inc[facility] pH (U) 6.0 [pH] Normal [facility] [employer] [facility], mokono.; [facility] [place] Specific gravity (U) [Rel density] 1.015 Normal [facility] [employer] [facility], mokono.; [facility] [employer] [facility] Laboratory - Hematology and Cell countson 11-19-2022 Hemoglobin Ql (U) Negative Normal [facility] [employer] [facility], [facility].; [facility] [employer] [facility] Laboratory - Specimen inform ationon 11-19-2022 Appearance (U) CLEAR Normal [facility] [employer] [facility], [employer].; [facility] [employer] [facility] Color (U) YELLOW Normal [facility] [employer] [facility], mokono.; [facility] [employer] [facility] Laboratory - Urinalysison Glucose Test strip (U) [Mass/Vol] Negative Normal [facility] [employer] [facility], [facility].; [employer] [facility] [employer] [facility], Inc[facility] Leukocyte esterase Test strip Ql (U) Negative Normal [facility] [employer] [facility], [facility].; [employer] [facility] [employer] [facility], Inc[facility] Nitrite Ql (U) Negative Normal [facility] [employer] [facility], [facility].; [employer] [facility] [employer] [facility], [facility] Protein Ql (U) Negative Normal [facility] [employer] [facility], [facility].; [facility] [employer] [facility], Inc[facility] No Panel Informationon 11-19 UA - ODOR Negative Normal [facility] [employer] [facility], [facility].; [employer] [facility] [employer] [facility], Inc. UA - UROBILIGEN 0.2 Normal [facility] [employer] [facility], mokono.; [facility]. LMERLYon 07-10-2022 Lyme IgG/IgM AB Negative Normal Negative [facility] ([place] Comment on above: Result Comment: Rece nt infection with B. burgdorferi sensu lato cannot be excluded if the specimen collected within four weeks after the onset of signs and symptoms or within six weeks after a known tick exposure. Clinical and epidemiological correlation is required. Performed By: [facility] [address] [place] [address] [employer]: Hosea Lira III, M.D. CLIA#: [id number] Performed By: #### G FR, ADIFF, CMP, CBC, TSH, LIPID, FE, ANEU #### [address] [address] .GFRon 07-09-2022 GFR >60 Normal [facility] ([place] Comment on above: Result Comment: GFR Population mean for , Non- Americans Ages 20-29 = 116 mL/min/1.73 sq.m. Ages 30-39 = 107 mL/min/1.73 sq.m. Ages 40-49 = 99 mL/min/1.73 sq.m. Ages 50-59 = 93 mL/min/1.73 sq.m. Ages 60-69 = 85 mL/min/1.73 sq.m. Ages 70+ = 75 mL/min/1.73 sq.m. Chronic Kidney Disease: Less than 60 mL/min/1.73 square meters End Stage Renal Disease: Less than 15 mL/min/1.73 square meters Performed By: #### L PAMELA, GFR, CMP #### [address] [address] GFR Non- >60 Normal [facility] ([place] Comment on above: Result Comment: GFR Population mean for , Non- Americans Ages 20-29 = 116 mL/min/1.73 sq.m. Ages 30-39 = 107 mL/min/1.73 sq.m. Ages 40-49 = 99 mL/min/1.73 sq.m. Ages 50-59 = 93 mL/min/1.73 sq.m. Ages 60-69 = 85 mL/min/1.73 sq.m. Ages 70+ = 75 mL/min/1.73 sq.m. Chronic Kidney Disease: Less than 60 mL/min/1.73 square meters End Stage Renal Disease: Less than 15 mL/min/1.73 square meters Performed By: #### L PAMELA, GFR, CMP #### [address] [address] CMPon 07-09-2022 Albumin Level 4.3 G/dL Normal 3.2-4.8 [facility] ([place] Comment on above: Performed By: #### L PAMELA, GFR, CMP #### [place] [id number] Albumin/Globulin [Mass ratio] 1.5 {ratio} Normal 0.9-1.6 [facility] ([place] Comment on above: Performed By: #### L PAMELA, GFR, CMP #### [place] [id number] ALP [Catalytic activity/Vol] 65 U/L Normal 38-126 [facility] [place] Comment on above: Performed By: #### L PAMELA, GFR, CMP #### [place] [id number] ALT [Catalytic activity/Vol] 14 U/L Normal 10-49 [facility] ([place] Comment on above: Performed By: #### L PAMELA, GFR, CMP #### [place] [id number] AST [Catalytic activity/Vol] 20 U/L Normal 8-34 [facility] ([place] Comment on above: Performed By: #### L PAMELA, GFR, CMP #### [address] [address] Bili Total 0.70 mg/dL Normal 0.20-1.20 [facility] ([place] Comment on above: Result Comment: Use of this assay is not recommended for patients undergoing treatment with eltrombopag due to the potential for falsely elevated results. Performed By: #### L PAMELA, GFR, CMP #### [place] [id number] BUN/Creatinine Ratio 20.3 ratio Normal 10.0-22.0 [facility] [place] Comment on above: Performed By: #### L PAMELA, GFR, CMP #### [address] [address] Calcium [Mass/Vol] 9.6 mg/dL Normal 8.7-10.4 [facility] ([place] Comment on above: Performed By: #### L PAMELA, GFR, CMP #### [address] [address] Chloride [Moles/Vol] 103 mmol/L Normal 98-110 [facility] [place] Comment on above: Performed By: #### L PAMELA, GFR, CMP #### [address] [address] CO2 [Moles/Vol] 29 mmol/L Normal 22-32 [facility] [place] Comment on above: Performed By: #### L PAMELA, GFR, CMP #### [address] [address] Creatinine [Mass/Vol] 0.64 mg/dL Normal 0.50-1.20 [facility] ([place] Comment on above: Performed By: #### L PAMELA, GFR, CMP #### [address] [address] Electrolyte Balance 8.0 mEq/L Normal 4.0-15.0 [facility] ([place] Comment on above: Performed By: #### L PAMELA, GFR, CMP #### [address] [address] Globulin 2.8 G/dL Normal 1.5-3.8 [facility] ([place] Comment on above: Performed By: #### L PAMELA, GFR, CMP #### [address] [address] Glucose [Mass/Vol] 79 mg/dL Normal 70-110 [facility] ([place] Comment on above: Performed By: #### L PAMELA, GFR, CMP #### [address] [address] Potassium [Moles/Vol] 3.7 mmol/L Normal 3.5-5.0 [facility] ([place] Comment on above: Performed By: #### L PAMELA, GFR, CMP #### [address] [address] Sodium [Moles/Vol] 140 mmol/L Normal 136-145 [facility] ([place] Comment on above: Performed By: #### L PAMELA, GFR, CMP #### [address] [address] Total Protein 7.1 G/dL Normal 5.7-8.2 [facility] ([place] Comment on above: Result Comment: No te - New Reference Range in effect 20 Performed By: #### L PAMELA, GFR, CMP #### [address] [address] [address] Urea nitrogen [Mass/Vol] 13.0 mg/dL Normal 8.0-22.0 Formerly [facility] ([place]) Comment on above: Performed By: #### L PAMELA, GFR, CMP #### [address] [address] Laboratory - Chemistry and C hemistry - challengeon 07-08-2022 Albumin BCP dye [Mass/Vol] 4.3 g/dL Normal 3.2 - 4.8 g/dL [facility], [facility].; [facility], [place], [facility]. Albumin/Globulin [Mass ratio] 1.5 {ratio} Normal 0.9 - 1.6 {ratio} [facility].; [facility], [place] ALP [Catalytic activity/Vol] 65 U/L Normal 38 - 126 U/L [facility].; [facility], [place] ALT No additional P-5'-P [Catalytic activity/Vol] 14 U/L Normal 10 - 49 U/L [facility].; [facility], [place] ALT With P-5'-P [Catalytic activity/Vol] 14 U/L Normal 10 - 49 U/L [facility].; [facility], [place] AST [Catalytic activity/Vol] 20 U/L Normal 8 - 34 U/L [facility]; [facility] AST With P-5'-P [Catalytic activity/Vol] 20 U/L Normal 8 - 34 U/L [facility]; [facility] Bilirubin [Mass/Vol] 0.70 mg/dL Normal 0.20 - 1.20 mg/dL [facility]; [facility] Bilirubin Ql (U) Negative Normal [facility]; [facility] Calcium [Mass/Vol] 9.6 mg/dL Normal 8.7 - 10. 4 mg/dL [facility]; [facility] Chloride [Moles/Vol] 103 mmol/L Normal 98 - 110 meq/L [facility]; [facility] CO2 [Moles/Vol] 29 mmol/L Normal 22 - 32 meq/L [facility]; [facility] Creatinine [Mass/Vol] 0.64 mg/dL Normal 0.50 - 1.20 mg/dL [facility]; [facility] GFR/1.73 sq M.predicted among blacks MDRD (S/P/Bld) [Vol rate/Area] mL/min/{1.73_m2} Normal [facility]; [facility] Work Phone: GFR/1.73 sq M.predicted among non-blacks MDRD (S/P/Bld) [Vol rate/Area] mL/min/{1.73_m2} Normal [facility]; [facility] Work Phone: Globulin (S) [Mass/Vol] 2.8 g/dL Normal 1.5 - 3.8 g/dL [facility]; [facility], [place], [facility] Glucose [Mass/Vol] 79 mg/dL Normal 70 - 110 mg/dL [facility]; [facility] Ketones Ql (U) Negative Normal [facility]; [facility] pH (U) 6 [pH] Abnormal 4.6 - 8.0 [facility]; [facility] Potassium [Moles/Vol] 3.7 mmol/L Normal 3.5 - 5.0 meq/L [facility]; [facility] Protein [Mass/Vol] 7.1 g/dL Normal 5.7 - 8.2 g/dL [facility]; [facility] Sodium [Moles/Vol] 140 mmol/L Normal 136 - 145 meq/L [facility]; [facility], [place], [facility] Specific gravity (U) [Rel density] 1.030 Abnormal [facility]; [facility] Urea nitrogen [Mass/Vol] 13.0 mg/dL Normal 8.0 - 22.0 mg/dL [facility]; [facility], [place], [facility] Urea nitrogen/Creatinine [Mass ratio] 20.3 {ratio} Normal 10.0 - 22.0 {ratio} [facility]; [facility], [place], [facility] Laboratory - Hematology and Cell countson 07-08-2022 Hemoglobin Ql (U) HEMOLYZED TRACE Abnormal [facility]; [facility] Laboratory - Specimen inform ationon 07-08-2022 Appearance (U) CLEAR Normal [facility]; [facility] Color (U) YELLOW Normal [facility]; [facility] Laboratory - Urinalysison Glucose Test strip (U) [Mass/Vol] Negative Normal [facility]; [facility], [place], [facility] Leukocyte esterase Test strip Ql (U) Negative Normal [facility]; [facility] Nitrite Ql (U) Negative Normal [facility].; [facility], [place] Protein Ql (U) Negative Normal [facility].; [facility], [place]. No Panel Informationon 07-08 Electrolyte Balance 8.0 meq/L Normal 4.0 - 15 .0 meq/L [facility]; [facility], [place]. Lyme IgG/IgM AB Negative Normal [facility].; [facility], [place]. No Panel Informationon 01-05 Homocysteine 5.1 umol/L 3.2-10.7 [facility] Work Phone: Thyroid Stimulating Hormone (TSH) 1.12 uIU/mL 0.358-3.74 [facility] Work Phone: No Panel Informationon 12-17 MTHFR Thermolabile Variant DNA Anal Comment [facility] Work Phone: Comment on above: Result:c.665C>T (p. [id number]), legacy name: [id number] - NotDetected c.1286A>C (p. [id number]), legacy name: [id number] -Detected, heterozygousInterpretation:This result is not associated with an increased risk forhyperhomocysteinemia. See Additional Clinical Informationand Comments.Additional Clinical Information:Hyperhomocysteinemia is multifactorial involving genetic,clinical, and environmental risk factors. Reduced enzymeactivity of methylenetetrahydrofolate reductase (MTHFR) cosmo genetic risk factor for hyperhomocysteinemia,particularly when serum folate levels are low. There aretwo common variants in the MTHFR gene that can decreaseenzyme activity; c.665C>T (p. [id number]), legacy [id number], and c.1286A>C (p. [id number]), legacy name [id number].These variants do not independently increase risk ofconditions related to hyperhomocysteinemia in the absenceof elevated homocysteine levels. Measurement of totalplasma homocysteine is recommended. Patients should sharetheir MTHFR genotype with physicians who are makingdecisions regarding chemotherapy treatments that depend onfolate, such as methotrexate.Guidelines do not recommend genotyping of these two MTHFRvariants in the evaluation of venous thrombosis orobstetric risk due to limited evidence of clinical utility(PMID: 47814225). Comments:Genetic Coordinators are available for health careproviders to discuss results at [phone] ([phone]).Test Details:Variants Analyzed: c.665C>T (p. [id number]), legacy name:C677T and c.1286A>C (p. Hle662Onz), legacy name: [id number]/Limitations:DNA analysis of the MTHFR gene was performed by PCRamplification followed by restriction enzyme analysis. Thediagnostic sensitivity is >99%. Results must be combinedwith clinical information for the most accurateinterpretation. Molecular-based testing is highlyaccurate, but as in any laboratory test, diagnosticerrors may occur. False positive or false negative resultsmay occur for reasons that include genetic variants, bloodtransfusions, bone marrow transplantation, somatic ortissue-specific mosaicism, mislabeled samples, or erroneousrepresentation of family relationships.This test was developed and its performancecharacteristics determined by [employer]. It has not beencleared or approved by the Food and Drug Administration.References:Priscilla SE, Ankit CJ, Callie MYRICK. ACMG PracticeGuideline: lack of evidence for MTHFR polymorphism testing.Susy Med. 2012;15(2):153-6. doi: 10.1038/gim.2012.165.Epub 2012Aug 25. PMID: 01292419.[place] [employer]stetric[employer] and Gynecologists'Committee on Practice Bulletins-Obstetrics. ACOG PracticeBulletin No. 197: Inherited Thrombophilias in .Obstet Gynecol. 2018 Feb;132(1):e18-e34. doi:10.1097/AOG.9391356982461528. Erratum in: Obstet Gynecol.2018 May;132(4):1069. PMID: 05675673.Judit Baldwin, PhD, Ritchie Ivan, PhD, Gilda Sr, PhD, Dereje Rivera, PhD, FACW. Sharmaine Bender, PhD, Corina Jolly, PhD, Sujit Santana, PhD, FACMGPerformed at: TG - [facility] [id number] [facility], [place], [place] [id number] Director: Madeline Gallego [facility], Phone: [phone] Thin prep Papanicolaou smear with manual screeningon 12-17-2021 Thin prep Papanicolaou smear with manual screening Not Reportable [facility] Work Phone: CNPNon 12-15-2021 CNPN Telephone (HVAMAYAL) JESSA HERNANDEZ ([id number]) 1985 F Date Time Provider Department 12/15/21 MACIEL HELMS During your visit today, we recorded the following information about you: Carlos Enrique Isaac 12/15/2021 3:33 PM Signed Patient called in wanting to know exactly how Dr. Helms took care of her nerves during surgery. Were they cut and cauterized or were they just cut? She feels the best she has ever felt and is asking because her friends are asking her because they have some health issues. Allergies As of Date: 12/15/2021 Noted Allergy Reaction BACTRIM (SULFAMETHOXAZOLE-TRIMETH* 2 - Rash MORPHINE 06/18/2021 5 - Intolerance Comments: Nausea and pt felt like she could not breathe Date Reviewed: 10/09/2021 Reviewed by: Maciel Helms MD - Fully Assessed Reason for Visit: Patient Question [5937] Prescriptions as of 12/15/2021 - oxyCODONE IR (ROXICODONE) 5 mg immediate release tablet Take 1-2 tablets by mouth every 6 hours as needed for pain for up to 7 days. Do not start before June 29, 2021. - acetaminophen (TYLENOL) 325 mg tablet Take 2 tablets by mouth every 6 hours. - polyethylene glycol 3350 (MIRALAX, GLYCOLAX) 17 gram packet Take 1 Packet by mouth once daily. Dissolve dose in 4 - 8 ounces of liquid and take as directed. - sertraline (ZOLOFT) 25 mg tablet Take 25 mg by mouth once daily. - levothyroxine 88 mcg cap Take 88 mcg by mouth daily before breakfast. 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] 06/18/2021 Postoperative hypothyroidism [E89.0] 06/18/2021 Encounter Status:Closed by CARLOS ENRIQUE ISAAC on 12/15/21 Normal [facility] CNOVon 10-09-2021 CNOV Office Visit (HVASHL ) JESSA HERNANDEZ ([id number]) 1985 F Date Time Provider Department 10/09/21 9:00 AM MACIEL HELMS During your visit today, we recorded the following information about you: Pulse Blood pressure 61/minute 119/73 Maciel Helms MD 10/09/2021 9:40 AM Signed Post-op Visit Jessa Gurvinder Parhamr is a 36 year old year old female S/P 3 month median arcuate ligament release, celiac plexus neurolysis, and umbilical hernia repair on 06/25/2021. SUBJECTIVE: Pt states she is doing very well, no concerns or complaints. No c/o abd pain or pain after eating. Her symptoms have significantly improved. Denies any surgical pain, feels completely recovered from surgery. Denies any unintentional weight loss, is actually gaining weight. No new concerns since last office visit. STUDIES: Mesenteric Duplex EXAM: Incision: Clean and dry Abdominal Exam: Normal IMPRESSION:Stable post op No discomfort with eating, doing extremily PLAN: Follow up in one year with mesenteric duplex Maciel Helms M.D., F.A.C.S. 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 Do not start before June 29, 2021. - acetaminophen (TYLENOL) 325 mg tablet Take 2 tablets by mouth every 6 hours. - polyethylene glycol 3350 (MIRALAX, GLYCOLAX) 17 gram packet Take 1 Packet by mouth once daily. Dissolve dose in 4 - 8 ounces of liquid and take as directed. - sertraline (ZOLOFT) 25 mg tablet Take 25 mg by mouth once daily. - levothyroxine 88 mcg cap Take 88 mcg by mouth daily before breakfast. Problem List As Of Date 10/09/2021 Noted Resolved Median arcuate ligament syndrome (HCC) [I77.4] 06/18/2021 Postoperative hypothyroidism [E89.0] 06/18/2021 Encounter Status:Closed by MACIEL HELMS on 10/09/21 [facility] CNOVon 07-24-2021 CNOV Office Visit (HVASHL ) JESSA HERNANDEZ ([id number]) 1985 F Date Time Provider Department 07/24/21 10:45 AM MACIEL HELMS HVAMAYAL During your visit today, we recorded the following information about you: Pulse Blood pressure 68/minute 107/68 Maciel Helms MD 07/24/2021 11:36 AM Signed Post-op Visit Ms. Jessa Hernandez is a 36 year old year old female S/P Median arcuate ligament release with celiac plexus neurolysis and umbilical hernia repair 06/25/2021 SUBJECTIVE: Ms. Jessa Hernandez is doing better. She still has discomfort in the epigastric region and in the mid back if she eats a large portion or greasier food. Her symptoms have improved. The nausa pretty much gone. Mid abd incision healed well. No signs of infection. Her scale at home is not working EXAM: Abdominal Exam: Normal and incision clean and dry IMPRESSION:Stable post op Feels much better PLAN: duplex scan in 3 months Maciel Helms M.D., F.A.C.S. 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 Do not start before June 29, 2021. - acetaminophen (TYLENOL) 325 mg tablet Take 2 tablets by mouth every 6 hours. - polyethylene glycol 3350 (MIRALAX, GLYCOLAX) 17 gram packet Take 1 Packet by mouth once daily. Dissolve dose in 4 - 8 ounces of liquid and take as directed. - sertraline (ZOLOFT) 25 mg tablet Take 25 mg by mouth once daily. - levothyroxine 88 mcg cap Take 88 mcg by mouth daily before breakfast. 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] 06/18/2021 Postoperative hypothyroidism [E89.0] 06/18/2021 Encounter Status:Closed by MACIEL HELMS on 07/24/21 [facility] JESSA HERNANDEZ ([id number]) 1985 F Date Time Provider Department 07/03/21 CHARANJIT EVANS [facility] During your visit today, we recorded the following information about you: Karmen Antunez 07/03/2021 8:03 AM Signed Patient is requesting a pain patch to go over stomach while going thru recovery, she can't take pain meds orally states it upsets her stomach Please contact patient at [phone] Dary Baez APRN.TRANSMITTER ENGINEER IN CHARGE 07/03/2021 8:19 AM Signed Recommend following up with vascular surgery for pain management following release of median arcuate ligament. Dary Baez APRN.[facility] Zaria Londono LPN 07/03/2021 9:25 AM Signed Pt made aware Allergies As of Date: 07/03/2021 Noted Allergy Reaction BACTRIM (SULFAMETHOXAZOLE-TRIMETH* 2 - Rash MORPHINE 06/18/2021 5 - Intolerance Comments: Nausea and pt felt like she could not breathe Date Reviewed: 06/27/2021 Reviewed by: Patrick Rodriguez RN - Fully Assessed Reason for Visit: pain patch [Other] Cmt: requesting pain patch for surgery recovery Prescriptions as of 07/03/2021 - oxyCODONE IR (ROXICODONE) 5 mg immediate release tablet Take 1-2 tablets by mouth every 6 hours as needed for pain for up to 7 days. Do not start before June 29, 2021. - acetaminophen (TYLENOL) 325 mg tablet Take 2 tablets by mouth every 6 hours. - polyethylene glycol 3350 (MIRALAX, GLYCOLAX) 17 gram packet Take 1 Packet by mouth once daily. Dissolve dose in 4 - 8 ounces of liquid and take as directed. - sertraline (ZOLOFT) 25 mg tablet Take 25 mg by mouth once daily. - levothyroxine 88 mcg cap Take 88 mcg by mouth daily before breakfast. Problem List As Of Date 07/03/2021 Noted Resolved Median arcuate ligament syndrome (HCC) [I77.4] 06/18/2021 Postoperative hypothyroidism [E89.0] 06/18/2021 Encounter Status:Closed by ZARIA LONDONO on 07/03/21 [facility] OPERATIVE NOon 06-29-2021 OPERATIVE NO HNO ID: [id number] Author: Maciel Helms MD Service: Vascular Surgery Author Type: Physician Type: Operative Report Filed: 07/02/2021 10:38 PM Note Text: [facility] - Operative Report JESSA HERNANDEZ : 1985 AGE: 36. SEX: F PATIENT TYPE: I HOSP SVC: EVELINA LOCATION: [id number] ATTENDING PHYSICIAN: Maciel Helms MD CSN NUMBER: [id number] DATE OF SURGERY/PROCEDURE: 06/25/2021 INCISION/PROCEDURE START TIME: 03:59 pm INCISION CLOSE/PROCEDURE END TIME: 05:21 pm PREOPERATIVE DIAGNOSIS: 1. Median arcuate ligament syndrome. 2. Umbilical hernia. POSTOPERATIVE DIAGNOSIS: 1. Median arcuate ligament syndrome. 2. Umbilical hernia. SURGEON: Maciel Helms MD SPOOLER OPERATOR AUTOMATIC: Maciel De Leon. SURGERY/PROCEDURE: 1. Median arcuate ligament release. 2. Celiac plexus neurolysis. 3. Umbilical hernia repair. ANESTHESIA: General. FINDINGS: Successful division of median arcuate ligament and full neurolysis of celiac plexus with primarily repair of the umbilical hernia. ESTIMATED BLOOD LOSS: 50 mL. COMPLICATIONS: None. SPECIMENS: None. INDICATION FOR PROCEDURE: The patient is a 36-year-old female with median arcuate ligament syndrome and umbilical hernia, who is here for release of the ligament and celiac plexus neurolysis as well as repair of median umbilical hernia. DESCRIPTION OF PROCEDURE: The patient was brought down to the operating room. Placed in supine position. Sign-in was performed. She underwent uneventful induction and intubation. Abdomen was then prepped and draped in usual sterile fashion. Time-out was performed. A midline abdominal incision was made from the xiphoid just around the umbilicus carried down to the fascia. General exploration of the abdomen was performed. OG tube was placed. An Omni-Tract retractor was then placed. The triangle ligament of liver was taken down using cautery and then a gastrohepatic ligament was taken down. Retraction of the liver was performed to the right. The esophagus and stomach were retracted to the left. This provided exposure to the supraceliac aorta and the crura. The crura were taken down using cautery. Dissection was carefully taken down to the celiac artery. The ligament was identified as well as plexus. They were carefully and meticulously taken down. Now, the celiac artery was completely exposed to the hepatic artery and to the splenic artery. The plexus was completely neurolysed. The artery itself was very compressed by the ligament. There was dense celiac plexus there. All of which were completed transected. The wound now was irrigated with IrriSept. The wound was hemostatic throughout the whole procedure as well as exposure. The fascia then was closed using #1 PDS. The umbilical hernia was repaired primarily with the [id number] PDS. The skin was closed with 4-0 Monocryl subcuticular stitch. The patient was extubated, tolerated the procedure well, transferred to recovery room in stable condition. I was scrubbed for the entire procedure and did the operation except for the skin closure, which was done by the resident. Maciel Helms MD AR:[id number] /[id number] Normal [facility] Basic Metabolic Panlon 06-27 Anion gap [Moles/Vol] 11 mmol/L Normal 9-18 [facility] Calcium [Mass/Vol] 8.9 mg/dL Normal 8.5-10.2 [facility] Chloride [Moles/Vol] 103 mmol/L Normal 97-105 [facility] CO2 [Moles/Vol] 24 mmol/L Normal 22-33 [facility] Creatinine [Mass/Vol] 0.70 mg/dL Normal 0.58-0.96 [facility] eGFR- Amer. >60 Normal [facility] eGFR-All Other Races >60 Normal [facility] Comment on above: Result Comment: eGFR (Estimated GFR) Units of measure: mL/min/1.73 meters squared eGFR is derived from the reexpressed MDRD Study equation using the following parameters: serum creatinine, age, gender and race. The creatinine assay has been calibrated to be traceable to IDNE. An eGFR <60 mL/min/1.73m2 for >3 months is consistent with chronic kidney disease. Refer to KDOQI guidelines for clinical interpretation. In patients with unstable renal function, e.g. those with acute kidney injury, the eGFR may not accurately reflect actual GFR. Glucose [Mass/Vol] 130 mg/dL High 74-99 [facility] Potassium [Moles/Vol] 3.6 mmol/L Low 3.7-5.1 [facility] Sodium [Moles/Vol] 138 mmol/L Normal 136-144 [facility] Urea nitrogen [Mass/Vol] 6 mg/dL Low 7-21 [facility] CASE MANAGEMon 06-27-2021 CASE MANAGEM HNO ID: [id number] Author: Jessica Haque RN Service: Case Management Author Type: Registered Nurse Type: Care Mgt Progress Note Filed: 06/27/2021 11:47 AM Note Text: CARE MANAGEMENT DISCHARGE NOTE SERVICE DATE: 06/27/2021 SERVICE TIME: 11:46 AM LOS: 2 days Admission Date: 06/25/2021 DISCHARGE ARRANGEMENT Discharge Arrangement: Home;No needs/services identified TRANSPORTATION ARRANGEMENTS: Transportation Arrangements: Car Patient to discharge home with no services. SIGNATURE: Jessica Haque RN PATIENT NAME: Jessa Hernandez DATE: June 27, 2021 TIME: 11:46 AM PAGER/CONTACT #:[phone] Normal [facility] CBCon 06-27-2021 Absolute nRBC <0.01 Normal <0.01 [facility] Erythrocyte distribution width (RBC) [Ratio] 13.1 % Normal 11.5-15.0 [facility] Hematocrit (Bld) [Volume fraction] 36.2 % Normal 36.0-46.0 [facility] Hemoglobin (Bld) [Mass/Vol] 12.3 g/dL Normal 11.5-15.5 [facility] MCH 32.8 pG Normal 26.0-34.0 [facility] MCHC (RBC) [Mass/Vol] 34.0 g/dL Normal 30.5-36.0 [facility] MCV (RBC) [Entitic vol] 96.5 fL Normal 80.0-100.0 [facility] Platelet mean volume (Bld) [Entitic vol] 9.5 fL Normal 9.0-12.7 [facility] Platelets (Bld) [#/Vol] 213 10*3/uL Normal 150-400 [facility] RBC (Bld) [#/Vol] 3.75 10*6/uL Low 3.90-5.20 [facility] WBC (Bld) [#/Vol] 8.30 10*3/uL Normal 3.70-11.00 [facility] CNDSon 06-27-2021 [facility] HNO ID: [id number] Author: Nicole Tobar APRN.TRANSMITTER ENGINEER IN CHARGE Service: Vascular Surgery Author Type: Nurse Practitioner Type: Discharge Summary Filed: 06/27/2021 8:12 AM Note Text: Attestation signed by Maciel Helms MD at 07/01/2021 12:42 PM I saw and evaluated the patient. I reviewed the History and Exam as documented by the Nurse Practitioner. The following reflects my findings: agree fully with findings. Maciel Helms MD My Hospital Stay and Discharge Summary This is a summary of your hospital stay. Please read it carefully and share it with your family and healthcare providers. Date of Admission: 06/25/2021 Date of Discharge: 06/27/2021 Where I Will be Going after Discharge: Home/Self Care My Condition at Discharge: Stable My Doctors and Medical Team: - My Main Hospital Doctor: Maciel Helms MD - My Primary Care Physician: Neva Barrientos MD - Other Medical Team Members: None Discharge Diagnosis: Median arcuate ligament syndrome Summary of What Happened When in the Hospital: You were admitted to the hospital and underwent planned surgical release of your median arcuate ligament by Dr. Helms on 06/25/2021. You tolerated the surgery well and were taken to ICU for postoperative care. You progressed along your expected postoperative course. When criteria was met, you were transferred to the regular nursing floor. You tolerated food and your pain medication was transitioned from IV to oral medications. Please take over the counter stool softener while taking the narcotic pain medication. Your incision was well approximated and clean. You were ready for discharge to home in stable condition on 06/27/2021 with plan for 4 week follow up with Dr. Helms. Other Problem(s)/Diagnosis: Active Problems: Median arcuate ligament syndrome (HCC) Resolved Problems: * No resolved hospital problems. * Operations Performed While in the Hospital: 06/25/2021:Median Arcuate Ligament release with umbilical hernia repair Important Tests/Procedures: No procedures performed Instructions for My Care at Home or Healthcare Facility These instructions explain what you or your child care center assistant director need to do to continue your care at home or at another healthcare facility - Please go over these instructions with your nurse and child care center assistant director. - If you are not sure about something, please ask. Additional Health Information I Need to Know After I Leave the Hospital: CORONAVIRUS (COVID19) PREVENTION At present, these are our recommendations regarding the coronavirus (COVID-19) outbreak: ? Wash your hands regularly for at least 20 seconds with soap and water, especially before eating. ? If soap/water are unavailable, use a hand zoo director with at least 60% alcohol. ? Avoid touching your eyes, nose and mouth with unwashed hands. ? Avoid close contact (within 6 feet) with people who are sick. ? Stay home if you are feeling sick. ? Cover your cough or sneeze with a tissue, then throw the tissue in the trash. ? Standard household cleansers and wipes are effective in cleaning and disinfecting frequently touched objects and surfaces. ? Skip events that put you in contact with large groups of people (sporting events, concerts, theme coronel, etc). ? Avoid unnecessary domestic and international travel, including travel through large international airports. ? If traveling, wipe down your airplane seat (and tray) with a disinfecting wipe. If you have a fever, cough or shortness of breath, or are otherwise concerned you have COVID-19, we ask that you do not come to any [facility] facility without calling your primary care physician or speaking to a provider using a virtual visit using [facility] [employer]. You will be evaluated to determine if you require being seen in person or if you meet CDC guidelines for testing for COVID-19 based on symptoms, travel and exposures. If you meet criteria for testing, your [employer] provider or primary care physician will advise how to proceed with testing. CDC recommends wearing cloth face coverings in public settings where other social distancing measures are difficult to maintain (e.g., grocery stores and pharmacies) especially in areas of significant community-based transmission. ? Cloth face coverings should: ? fit snugly but comfortably against the side of the face ? be secured with ties or ear loops ? include multiple layers of fabric ? allow for breathing without restriction ? be able to be laundered and machine dried without damage or change to shape ? Cloth face coverings should not be placed on young children under age 2, anyone who has trouble breathing, or is unconscious, incapacitated or otherwise unable to remove the mask without assistan (more content not included)... Normal [facility] NURSING PROGon 06-27-2021 NURSING PROG HNO ID: [id number] Author: Jesi Burciaga RN Service: ? Author Type: Registered Nurse Type: Nursing Progress Note Filed: 06/27/2021 4:49 AM Note Text: Nursing Progress Note Patient Name: Jessa Hernandez Patient Location: [id number] Daily Note: 193- Assumed care of pt.Bedside shift report received from previous RN.Pt observed lying in bed,AANDOx3.Respiration regular and unlabored on room air. Pt's spouse at bedside.No needs voiced at this time. 2028- Assessment completed per flowsheet.Scheduled medications administered per OCT along with PRN PO roxicodone per pt request. Dressing to midline incision/ abdomen/ C/D/I /. Pt assisted to the bathroom with one staff assist,pt voided, clear,yellow urine noted.Pt assisted back to bed,no additional needs voiced at this time.Call light within reach.Bed in lowest position,locked. Scd placed to BLE.Pt instructed to call for assistance to get OOB. 0027- PRN PO roxicodone administered per pt request, for c/o of pain 7/10 in incision site , fresh water and some snacks provided,no additional needs voiced at this time.Call light within reach. 0433- Pt assisted to the bathroom with one staff assist, gait steady Pt medicated with PRN PO roxicodone per pt request, fresh water provided.Call light within reach.All safety measures maintained. This note was completed by: Jesi Burciaga Normal [facility] Basic Metabolic Panlon 06-26 Anion gap [Moles/Vol] 11 mmol/L Normal 9-18 [facility] Calcium [Mass/Vol] 9.0 mg/dL Normal 8.5-10.2 [facility] Chloride [Moles/Vol] 102 mmol/L Normal 97-105 [facility] CO2 [Moles/Vol] 22 mmol/L Normal 22-33 [facility] Creatinine [Mass/Vol] 0.66 mg/dL Normal 0.58-0.96 [facility] eGFR- Amer. >60 Normal [facility] eGFR-All Other Races >60 Normal [facility] Comment on above: Result Comment: eGFR (Estimated GFR) Units of measure: mL/min/1.73 meters squared eGFR is derived from the reexpressed MDRD Study equation using the following parameters: serum creatinine, age, gender and race. The creatinine assay has been calibrated to be traceable to IDMS. An eGFR <60 mL/min/1.73m2 for >3 months is consistent with chronic kidney disease. Refer to KDOQI guidelines for clinical interpretation. In patients with unstable renal function, e.g. those with acute kidney injury, the eGFR may not accurately reflect actual GFR. Glucose [Mass/Vol] 124 mg/dL High 74-99 [facility] Potassium [Moles/Vol] 3.7 mmol/L Normal 3.7-5.1 [facility] Sodium [Moles/Vol] 135 mmol/L Low 136-144 [facility] Urea nitrogen [Mass/Vol] 8 mg/dL Normal 7-21 [facility] CBCon 06-26-2021 Absolute nRBC <0.01 Normal <0.01 [facility] Erythrocyte distribution width (RBC) [Ratio] 12.3 % Normal 11.5-15.0 [facility] Hematocrit (Bld) [Volume fraction] 37.9 % Normal 36.0-46.0 [facility] Hemoglobin (Bld) [Mass/Vol] 12.9 g/dL Normal 11.5-15.5 [facility] MCH 31.2 pG Normal 26.0-34.0 [facility] MCHC (RBC) [Mass/Vol] 34.0 g/dL Normal 30.5-36.0 [facility] MCV (RBC) [Entitic vol] 91.8 fL Normal 80.0-100.0 [facility] Platelet mean volume (Bld) [Entitic vol] 9.4 fL Normal 9.0-12.7 [facility] Platelets (Bld) [#/Vol] 247 10*3/uL Normal 150-400 [facility] RBC (Bld) [#/Vol] 4.13 10*6/uL Normal 3.90-5.20 [facility] WBC (Bld) [#/Vol] 12.39 10*3/uL High 3.70-11.00 [facility] Lactateon 06-26-2021 Lactate [Moles/Vol] 0.7 mmol/L Normal 0.5-2.2 [facility] NURSING PROGon 06-26-2021 NURSING PROG HNO ID: [id number] Author: Patrick Rodriguez RN Service: Nursing Author Type: Registered Nurse Type: Nursing Progress Note Filed: 06/26/2021 7:42 PM Note Text: Nursing Progress Note Patient Name: Jessa Hernandez Patient Location: [place] [id number] Daily Note: 1800: Pt arrived to [facility] No distress at this time, at bedside. This note was completed by: Patrick Rodriguez [facility] ANES POSTPROC EVALon 021 ANES POSTPROC EVAL HNO ID: [id number] Author: Tristian Sheets MD Service: Anesthesiology Author Type: Anesthesiologist Type: Anesthesia Postprocedure Evaluation Filed: 06/25/2021 7:48 PM Note Text: POST ANESTHESIA EVALUATION NOTE : 1985 Procedure Summary Date: 06/25/21 Room / Location: [place] [address]A / OR Anesthesia Start: 1414 Anesthesia Stop: 1751 Procedures: OPEN RELEASE OF MEDIAN ARCUATE LIGAMENT (N/A Abdomen) REPAIR UMBILICAL HERNIA, >5 YEARS, REDUCIBLE (N/A Abdomen) Diagnosis: Median arcuate ligament syndrome (HCC) (Median arcuate ligament syndrome (HCC) [I77.4]) Surgeons: Maciel Helms MD Responsible Provider: Tristian Sheets MD Anesthesia Type: general ASA Status: 2 Anesthesia Type: general Last vitals Vitals Value Taken Time BP 112/66 06/25/21 1930 Temp 36.4 ?C (97.5 ?F) 06/25/21 1745 Pulse 65 06/25/211945 Resp 14 06/25/211945 SpO2 98 % 06/25/211945 Vitals shown include unvalidated device data. Post Anesthesia Patient Status Patient Evaluation: PACU. PACU/ICU Patient Condition: stable. Anticipated Disposition: ICU planned admission. Neurological Status: aware and responsive. Pulmonary Status: breathing comfortably on room air Airway Control: returned to baseline unsupported. Cardiovascular Status: stable. Pain Management: clinically adequate - multimodal analgesia pain management approach Postoperative Hydration: acceptable. Intraoperative Events: no significant anesthesia events Post Operative Nausea/Vomiting Status: no significant post operative nausea or vomiting Anesthetic Observations: Recommendation: further care per PACU/ICU/floor team. Anesthesia Observations No Documentation SIGNATURE: Tristian Sheets MD PATIENT NAME: Jessa Hernandez DATE: June 25, 2021 TIME: 7:48 PM CSN: [id number] [facility] ANES PRE-OPon 06-25-2021 ANES PRE-OP HNO ID: [id number] Author: Tristian Sheets MD Service: Anesthesiology Author Type: Anesthesiologist Type: Anesthesia Preprocedure Evaluation Filed: 06/25/2021 12:39 PM Note Text: ANESTHESIOLOGY DAY OF SURGERY NOTE : 1985 Procedure(s) (LRB): OPEN RELEASE OF MEDIAN ARCUATE LIGAMENT (N/A) Surgeon(s): Maciel Helms MD Estimated body mass index is 21.45 kg/m? as calculated from the following: Height as of 06/18/21: 160 cm (5' 3"). Weight as of 06/18/21: 54.9 kg (121 lb 1.6 oz). Most recent hematocrit and potassium results: Hematocrit 41.2 06/18/2021 Potassium 4.3 06/18/2021 Relevant Problems CARDIO (+) Median arcuate ligament syndrome (HCC) ENDO (+) Postoperative hypothyroidism I - PHYSICAL EVALUATION AIRWAY Patient intubated: No. Tracheostomy tube not present Mallampati: II. TM distance: >3 FB. Neck ROM: full ROM without neurological symptoms. Mouth opening: adequate. Short neck: no. Thick neck: no DENTAL Dental findings: teeth intact. Additional exam findings: no II - ANESTHESIA PLAN ASA Score: 2 Anesthetic Plan: general Airway type: ETT The patient is not a current smoker. NPO Status: adequate Monitoring plan: standard ASA. Postoperative analgesic plan: parenteral or oral opioids. Anesthetic Risks, Benefits, Alternatives, Personnel Discussed. Consent obtained from: patient.Patient / Surrogate agrees to blood products: Yes Significant changes in the patient condition since the History and Physical, not otherwise documented in primary service progress note: no. Potential Anesthesia issues that may suggest increased risk of complications or contraindication to planned procedure: none. Vitals Value Taken Time BP 114/69 06/25/21 1149 Pulse 56 06/25/21 1149 Resp 16 06/25/21 1149 Temp 37.1 ?C (98.8 ?F) 06/25/21 1149 SpO2 99 % 06/25/21 1149 Facility-Administered Medications as of 06/25/2021 Medication Dose Route Frequency - [COMPLETED] acetaminophen 1,000 mg tab(s) (TYLENOL) 1,000 mg ORAL ONCE - [COMPLETED] promethazine 12.5 mg tab(s) (PHENERGAN) 12.5 mg ORAL ONCE - bupivacaine liposome (PF) 1.3 % (13.3 mg/mL) 266 mg injection (EXPAREL) 266 mg INFILTRATION ONCE Outpatient Medications as of 06/25/2021 Medication Sig - sertraline (ZOLOFT) 25 mg tablet Take 25 mg by mouth once daily. - levothyroxine 88 mcg cap Take 88 mcg by mouth daily before breakfast. - traMADol (ULTRAM) 50 mg tablet Take 50 mg by mouth twice daily as needed. - gabapentin (NEURONTIN) 100 mg capsule take 1 tab PO qHS x 3 days, then take 2 tabs PO qHS x 3 days, then take 1 tab PO qAM + 2 tabs PO qHS x 3 days, then take 2 tabs PO BID I have interviewed and examined the patient. I have reviewed the medical record and/or the pre-anesthesia evaluation, pertinent labs, and test results. This contains updated information obtained within 48 hours of Surgery/Procedure. SIGNATURE: Tristian Sheets MD PATIENT NAME: Jessa Hernandez DATE: June 25, 2021 TIME: 12:38 PM CSN: [id number] [facility] BRIEF OP NOTon 06-25-2021 BRIEF OP NOT HNO ID: [id number] Author: Adal Woodruff MD Service: Vascular Surgery Author Type: Resident Type: Brief Op Note Filed: 06/25/2021 5:27 PM Note Text: BRIEF OPERATIVE / PROCEDURE NOTE LOG ID: [id number] Surgery/Procedure Date: 06/25/2021 Incision/Procedure Start Time: 2:59 PM Incision Close/Procedure End Time: 5:21 PM Surgeon(s)/Proceduralist(s) and Carton Making Machine Operator(s): Surgeon(s) and Role: * Maciel Helms MD - Primary * Adal Woodruff MD - Resident - Assisting Physician Carton Making Machine Operator: Rishi Thompson PA-C Procedure(s): Median Arcuate Ligament release with umbilical hernia repair Anesthesia: General ASA Class: 3 Findings: Jael of the diaphragm divided, full neurolysis of the Celiac plexus Pulses: LLE: palpable DP/PT RLE: palpable DP/PT Medications: Antiplatelet: No - Reason: not home med Anticoagulation: No Statin: No - Reason: not home med Beta Calista: No - Reason: not home med Estimated Blood Loss: 50 mls Specimens: None Complications: None PRE-OP/PRE-PROCEDURE DIAGNOSIS: Median Arcuate Ligament Syndrome POST-OP/POST-PROCEDURE DIAGNOSIS: Same as Preop SIGNATURE: Adal Woodruff MD PATIENT NAME: Jessa Hernandez DATE: June 25, 2021 TIME: 5:23 PM [facility] NURSING PROGon 06-25-2021 NURSING PROG HNO ID: [id number] Author: Benitez Cota RN Service: Nursing Author Type: Registered Nurse Type: Nursing Progress Note Filed: 06/25/2021 12:50 PM Note Text: 4 QUAD TAP BLOCK with Exparel Dr. Igor SINGH Patient and family verbalized her understanding of the nerve block procedure [facility] PreOp/PreProc COVIDon 2020 SARS-CoV-2 (COVID-19) RNA SAUL+probe Ql (Unsp spec) UPPER RESPIRATORY TRACT SWAB Normal [facility] Comment on above: Performed By: #### P OCOVD ####[facility] [id number], [place] [phone] SARS-CoV-2 (COVID-19) RNA SAUL+probe Ql (Unsp spec) Negative for COVID19 (SARS CoV2) by RT-PCR or equivalent method. Normal Negative for COVID19 (SARS CoV2) by RT-PCR or equivalent method. [facility] Comment on above: Result Comment: This test was developed and its performance characteristics determined by [facility]'s [facility] [place]. This test has been authorized by FDA under an Emergency Use Authorization (EUA). This test has been validated in accordance with the FDA's Guidance Document "Policy for Diagnostics Testing in Laboratories Certified to Perform High Complexity Testing under CLIA prior to Emergency use Authorization for Coronavirus Disease 2019 during the Public Health Emergency" issued on October 21, 2019. Test performed by [facility], [facility] [place], [address] [place], [place] [address]. Performed By: #### P OCOVD ####[facility], [place] [phone] APTTon 06-18-2021 aPTT Coag (Bld) [Time] 29.1 s Normal 23.0-32.4 [facility] Comment on above: Result Comment: Unfr actionated Heparin Therapeutic Ranges: Standard Heparin Nomogram: 53 to 78 seconds (anti-Xa level of 0.3 to 0.7 U/ml) Low Dose/ACS Nomogram: 49 to 67 seconds (anti-Xa level of 0.2 to 0.5 U/ml) Stroke Treatment Nomogram: 49 to 67 seconds (anti-Xa level of 0.2 to 0.5 U/ml) Note: The APTT therapeutic range has been determined for the current lot of laboratory APTT reagent in use throughout the [facility]. Basic Metabolic Panlon 06-18 Anion gap [Moles/Vol] 12 mmol/L Normal 9-18 [facility] Calcium [Mass/Vol] 9.5 mg/dL Normal 8.5-10.2 [facility] Chloride [Moles/Vol] 103 mmol/L Normal 97-105 [facility] CO2 [Moles/Vol] 24 mmol/L Normal 22-33 [facility] Creatinine [Mass/Vol] 0.73 mg/dL Normal 0.58-0.96 [facility] eGFR- Amer. >60 Normal [facility] eGFR-All Other Races >60 Normal [facility] Comment on above: Result Comment: eGFR (Estimated GFR) Units of measure: mL/min/1.73 meters squared eGFR is derived from the reexpressed MDRD Study equation using the following parameters: serum creatinine, age, gender and race. The creatinine assay has been calibrated to be traceable to IDMS. An eGFR <60 mL/min/1.73m2 for >3 months is consistent with chronic kidney disease. Refer to KDOQI guidelines for clinical interpretation. In patients with unstable renal function, e.g. those with acute kidney injury, the eGFR may not accurately reflect actual GFR. Glucose [Mass/Vol] 89 mg/dL Normal 74-99 [facility] Potassium [Moles/Vol] 4.3 mmol/L Normal 3.7-5.1 [facility] Sodium [Moles/Vol] 139 mmol/L Normal 136-144 [facility] Urea nitrogen [Mass/Vol] 12 mg/dL Normal 7-21 [facility] CBC and Differentialon 06-18 Abs Baso 0.08 k/uL Normal <0.11 [facility] Abs Prowers 0.38 k/uL Normal <0.87 [facility] Abs Neut 3.12 k/uL Normal 1.45-7.50 [facility] Absolute nRBC <0.01 Normal <0.01 [facility] Basophils/100 WBC (Bld) 1.4 % Normal [facility] DTYPE Auto Diff Normal [facility] Eosinophils (Bld) [#/Vol] 0.14 10*3/uL Normal <0.46 [facility] Eosinophils/100 WBC (Bld) 2.5 % Normal [facility] Erythrocyte distribution width (RBC) [Ratio] 12.1 % Normal 11.5-15.0 [facility] Hematocrit (Bld) [Volume fraction] 41.2 % Normal 36.0-46.0 [facility] Hemoglobin (Bld) [Mass/Vol] 13.7 g/dL Normal 11.5-15.5 [facility] Lymphocytes (Bld) [#/Vol] 1.90 10*3/uL Normal 1.00-4.00 [facility] Lymphocytes/100 WBC (Bld) 33.7 % Normal [facility] MCH 31.0 pG Normal 26.0-34.0 [facility] MCHC (RBC) [Mass/Vol] 33.3 g/dL Normal 30.5-36.0 [facility] MCV (RBC) [Entitic vol] 93.2 fL Normal 80.0-100.0 [facility] Monocytes/100 WBC (Bld) 6.7 % Normal [facility] Neutrophils/100 WBC (Bld) 55.7 % Normal [facility] NRBCs 0.0 /100 WBC Normal 0 [facility] Platelet mean volume (Bld) [Entitic vol] 9.6 fL Normal 9.0-12.7 [facility] Platelets (Bld) [#/Vol] 280 10*3/uL Normal 150-400 [facility] RBC (Bld) [#/Vol] 4.42 10*6/uL Normal 3.90-5.20 [facility] WBC (Bld) [#/Vol] 5.63 10*3/uL Normal 3.70-11.00 [facility] Confirm Blood Typeon 021 ABO/RH(D) Positive Normal [facility] HISTORY PHYSICALon HISTORY PHYSICAL HNO ID: [id number] Author: Opal Rubio PA-C Service: ? Author Type: Physician Carton Making Machine Operator Type: HANDP Filed: 06/18/2021 12:00 PM Note Text: HISTORY AND PHYSICAL EXAMINATION SERVICE DATE: 06/18/2021 SERVICE TIME: 11:00 AM PRIMARY CARE PHYSICIAN: Neva Barrientos NP REASON FOR VISIT: Jessa Hernandez is a 36 year old female who is scheduled for MEDIAN ARCUATE LIGAMENT RELEASE at the request of Dr. Maciel Helms for consultation. My final recommendation will be communicated back to the requesting physician by way of shared medical record or letter. The patient has the following: There is no problem list on file for this patient. Subjective CHIEF COMPLAINT: MALS HPI: Jessa Hernandez is a 36 year old female who is scheduled for MEDIAN ARCUATE LIGAMENT RELEASE at the request of Dr. Maciel Helms for 06/25/2021. She states that she was diagnosed with MALS in 2019 with fatigue and dyspnea on exertion. ZHONG has worsened over the past year, especially with climbing stairs and heavy lifting. She also reports abdominal pain and nausea. She had nerve block earlier this year which brought her relief for ~2 hours. PAST MEDICAL HISTORY Diagnosis Date - Thyroid cancer (HCC) PAST SURGICAL HISTORY Procedure Laterality Date - THYROIDECTOMY No family history on file. SOCIAL HISTORY: Social History Tobacco Use - Smoking status: Never Smoker - Smokeless tobacco: Never Used Substance Use Topics - Alcohol use: Never - Drug use: Never Prior to Admission medications as of 06/04/21 1046 Medication Sig Last Dose Taking traMADol (ULTRAM) 50 mg tablet Take 50 mg by mouth twice daily as needed. sertraline (ZOLOFT) 25 mg tablet Take 25 mg by mouth once daily. levothyroxine 88 mcg cap Take 88 mcg by mouth daily before breakfast. gabapentin (NEURONTIN) 100 mg capsule take 1 tab PO qHS x 3 days, then take 2 tabs PO qHS x 3 days, then take 1 tab PO qAM + 2 tabs PO qHS x 3 days, then take 2 tabs PO BID No medication comments found. ALLERGIES Allergen Reactions - Bactrim [Sulfametho* Rash COVID VACCINATION STATUS: Not vaccinated REVIEW OF SYSTEMS: PAIN ASSESSMENT: Pain Pain Location: Abdomen-Mid Upper Description: Aching General: No weight loss, malaise or fevers. Neuro: No history of TIA's, stroke, PIGMENT WEIGHER tumor, impaired sensorium, hemiplegia, paraplegia or quadraplegia. No neurological symptoms or problems. Respiratory: No history of current cough or dyspnea, or pneumonia in the past 6 weeks. +URI ~1 month ago Cardiovascular: No history of HTN requiring medication, no history of angina, CHF, ME, cardiac surgery or stents. Denies rest pain, gangrene or revascularization/amputation for PVD. +MALS- see HPI +h/o superficial blood clot during GI: No history of esophageal varices, recent ascites, or ETOH greater than 2 drinks per day. +gastritis : No history of dysuria, frequency or incontinence,, stones or chronic kidney disease FAMILY PRACTITIONER: Negative for abnormal vaginal bleeding, abnormal vaginal discharge. : Denies, Patient's last menstrual period was 05/25/2021 (approximate). Endocrine: No history of diabetes. Has not taken steroids within the past 30 days. +hypothyroid- postop Hematology: No history of bleeding or clotting disorder. Pt is not taking anti-coagulation or platelet medications. No history of hematological symptoms or problems. Oncology: +thyroid cancer- 2019, s/p thyroidectomy Psych: +anxiety- stable with medication Musculoskeletal: Negative for joint pain or swelling, back pain or muscle pain. Skin: Negative for lesions, rash and itching. Objective PHYSICAL EXAM: VITALS: BP 109/72 Pulse 55 Temp (Src) 97.6 (Temporal) Resp 18 Ht 5' 3" (1.60m) Wt 121 lb 1.6 oz (54.9kg) SpO2 100% [facility] 05/25/2021 BMI 21.46 kg/(m2). General: Alert and oriented, No acute distress, Healthy appearance Skin: Normal color, no rash, no lesions. HEENT: EOM intact, pupils equal, round and reactive. Cardiovascular: Normal S1 AND S2, no rubs, murmurs or gallops. No JVD. Pulse regular. Lungs: Normal breath sounds, no wheezes or crackles., No chest deformities or chest wall tenderness. Abdomen: Soft, non-tender, no rigidity., No masses or organomegaly., Positive bowel sounds Extremities: No deformity, no edema or tenderness, no joint swelling or clubbing. Neurological: Normal cognition and motor skills. Gait normal. No weakness or sensory deficit. Pulses: Carotid and radial pulses normal +2. Pedal pulses normal +2. Diagnostic tests reviewed for today's visit: PENDING No results found for: HBA1C Most recent EKG 06/18/2021 Diagnosis: SINUS BRADYCARDIA OTHERWISE NORMAL ECG Assessment/Plan Median arcuate ligament syndrome (HCC) Assessment: diagnosed 2019 Postoperative hypothyroidism Assessment: thyroidectomy 2019 METS: Walk a block or two on level ground (2.75 METs) Patient denies any chest (more content not included)... Normal [facility] Protimeon 06-18-2021 PT INR 1.0 Normal 0.9-1.3 [facility] Comment on above: Result Comment: Rona min K Antagonist (VKA) Therapeutic Range: INR 2 to 3 (Target INR of 2.5) Note: For patients treated with VKA drugs, such as warfarin, the [employer] 2012 Guideline recommends a therapeutic INR range of 2 to 3 (target INR of 2.5). This recommendation includes high-risk patients with antiphospholipid syndrome with previous arterial or venous thromboembolism, current-generation mechanical or bioprosthetic aortic heart valve replacement. Note: Patients with mechanical aortic valve replacement and additional risk factors for thromboembolic events (atrial fibrillation, previous thromboembolism, LV dysfunction, hypercoagulable conditions) or an older generation mechanical AVR (i.e., ball in-Cage) or any mechanical MVR should have a INR therapeutic range of 2.5 to 3.5 (target INR of 3). Cole GH, et al. Chest 2012, 141:7S-47S Carlos PINK, et al. [facility] 2017, 70: 252-289 PT Sec 11.1 sec Normal 9.7-13.0 [facility] Type and SCR (30D)on 021 ABO/RH(D) Positive Normal [facility] CNPNon 06-05-2021 CNPN Telephone ([facility]) JESSA HERNANDEZ ([id number]) 1985 F Date Time Provider Department 06/05/21 MACIEL HELMS [facility] During your visit today, we recorded the following information about you: Homar Barillas 06/05/2021 2:44 PM Signed Patient called in requesting to speak with a Nurse regarding next steps after having a Block Celiac Plexus With C-Arm [1254] - Back. She states that she has a procedure on 06/[address] Helms and she wants to know if she has to do anything else after getting the Celiac Block. She would like a call back to discuss at [phone]. Please Advise, Homar Gary RN 06/09/2021 12:[address] Helms, nothing else needed. Okay to proceed with surgery scheduled on 06/25. Pt aware and expressed understanding. No further questions or concerns. Kalli Escamilla 06/23/2021 11:22 AM Signed Contact Information: [phone] Patient message detail: Pt has two questions prior to procedure. #1 is her blood work from the 06/18/21 ok? #2 she states she has an umbilical hernia and is asking if that is something Dr. Helms will fix during procedure? Is it ok to leave detailed message on voice mail : Yes Please Advise Wendi Agarwal Pss Allergies As of Date: 06/05/2021 Noted Allergy Reaction BACTRIM (SULFAMETHOXAZOLE-TRIMETH* 2 - Rash Date Reviewed: 06/04/2021 Reviewed by: Brenda Smallwood RN - Fully Assessed Reason for Visit: Question [1327] Further questions [Other] Prescriptions as of 06/23/2021 - traMADol (ULTRAM) 50 mg tablet Take 50 mg by mouth twice daily as needed. - sertraline (ZOLOFT) 25 mg tablet Take 25 mg by mouth once daily. - levothyroxine 88 mcg cap Take 88 mcg by mouth daily before breakfast. - gabapentin (NEURONTIN) 100 mg capsule take 1 tab PO qHS x 3 days, then take 2 tabs PO qHS x 3 days, then take 1 tab PO qAM + 2 tabs PO qHS x 3 days, then take 2 tabs PO BID Problem List As Of Date: 06/05/2021 (None) Encounter Status:Closed by HOMAR BARILLAS [facility]09[facility] JESSA HERNANDEZ ([id number]) 1985 F Date Time Provider Department 06/05/21 CHARANJIT EVANS [facility] During your visit today, we recorded the following information about you: Allergies As of Date: 06/05/2021 Noted Allergy Reaction BACTRIM (SULFAMETHOXAZOLE-TRIMETH* 2 - Rash Date Reviewed: 06/04/2021 Reviewed by: Brenda Smallwood RN - Fully Assessed Reason for Visit: Pain [78] Prescriptions as of 11/06/2021 - oxyCODONE IR (ROXICODONE) 5 mg immediate release tablet Take 1-2 tablets by mouth every 6 hours as needed for pain for up to 7 days. Do not start before June 29, 2021. - acetaminophen (TYLENOL) 325 mg tablet Take 2 tablets by mouth every 6 hours. - polyethylene glycol 3350 (MIRALAX, GLYCOLAX) 17 gram packet Take 1 Packet by mouth once daily. Dissolve dose in 4 - 8 ounces of liquid and take as directed. - sertraline (ZOLOFT) 25 mg tablet Take 25 mg by mouth once daily. - levothyroxine 88 mcg cap Take 88 mcg by mouth daily before breakfast. Problem List As Of Date: 06/05/2021 (None) Encounter Status:Closed by ZARIA LONDONO on 11/06/21 Normal [facility] Telephone ([facility]) JESSA HERNANDEZ ([id number]) 1985 F Date Time Provider Department 06/05/21 CHARANJIT EVANS [facility] During your visit today, we recorded the following information about you: Zaria Londono LPN 06/05/2021 2:13 PM Signed Post CPB Block at 1300 pain was 1-2/10 Left at 1415 Ate pretzels at 1500 Ate Wendys hamburger and fries at 1545 At 1615 very nauseated with discomfort, did not feels like normal MALS nausea and pain, subsided a little 1900 ate fried fish and fries did not feel good after, rates pain 5-6/10 Not sure if the nausea was from MALS or her sensitivity to the twilight anesthesia Dary Baez APRN.TRANSMITTER ENGINEER IN CHARGE 06/06/2021 9:26 AM Signed Patient has follow up with Dr Helms. Dary Baez APRN.TRANSMITTER ENGINEER IN CHARGE Allergies As of Date: 06/05/2021 Noted Allergy Reaction BACTRIM (SULFAMETHOXAZOLE-TRIMETH* 2 - Rash Date Reviewed: 06/04/2021 Reviewed by: Brenda Smallwood RN - Fully Assessed Reason for Visit: Patient Update [1234] Prescriptions as of 06/06/2021 - traMADol (ULTRAM) 50 mg tablet Take 50 mg by mouth twice daily as needed. - sertraline (ZOLOFT) 25 mg tablet Take 25 mg by mouth once daily. - levothyroxine 88 mcg cap Take 88 mcg by mouth daily before breakfast. - gabapentin (NEURONTIN) 100 mg capsule take 1 tab PO qHS x 3 days, then take 2 tabs PO qHS x 3 days, then take 1 tab PO qAM + 2 tabs PO qHS x 3 days, then take 2 tabs PO BID Problem List As Of Date: 06/05/2021 (None) Encounter Status:Closed by ZARIA LONDONO on 06/06/21 [facility] HISTORY PHYSICALon HISTORY PHYSICAL HNO ID: [id number] Author: Charanjit Evans MD Service: Pain Management Author Type: Physician Type: HANDP Filed: 06/04/2021 12:04 PM Note Text: UPDATED HISTORY AND PHYSICAL EXAMINATION PATIENT NAME: Jessa Hernandez SERVICE DATE: June 04, 2021 SERVICE TIME: 12:04 PM PHYSICAL EXAM MUST BE COMPLETED ON ADMISSION The History and Physical (completed in the past 30 days) has been reviewed and the patient has been examined. The contents accurately reflect the patient's condition with the following additions or revisions since the HANDP was completed: Examination indicates no changes from previous. This previous HANDP can be found in the Electronic Medical Record. ASA Class: III AIRWAY: Airway Visualization of Uvula: Yes Mouth opening greater than 2 fingerbreadths: Yes Neck Full Range of Motion: Yes LUNGS: Lungs clear to auscultation. CARDIAC: regular When using SEDATION, goal is moderate As detailed in the consent form, I have personally reviewed the risks, benefits, alternatives, expectations and personnel with the patient and have answered their questions. We are ready to proceed with the procedure as planned. SIGNATURE: Charanjit Evans MD DATE: June 04, 2021 TIME: 12:04 PM [facility] HISTORY PHYSICAL HNO ID: [id number] Author: Suhas Cowan APRN.TRANSMITTER ENGINEER IN CHARGE Service: ASSESSMENT Author Type: Nurse Practitioner Type: HANDP Filed: 06/04/2021 10:20 AM Note Text: Jessa Hernandez returns to [facility] for the treatment of her epigastric pain that wraps around left lower thoracic region to left back. Has intermittent episodes of pain daily. PAIN LOCATION: As above PAIN SCALE: 4 on a scale of 0-10 PAIN CHARACTER: sharp DURATION: Approximately 8 years, worse in last year. FREQUENCY: occurs intermittently NOTHING TO EAT OR DRINK: Yes ANTICOAGULATION: no Allergies: Bactrim [Sulfamethoxazole-Trimethopri m] Current Outpatient Medications: traMADol (ULTRAM) 50 mg tablet Take 50 mg by mouth twice daily as needed. sertraline (ZOLOFT) 25 mg tablet Take 25 mg by mouth once daily. levothyroxine 88 mcg cap Take 88 mcg by mouth daily before breakfast. gabapentin (NEURONTIN) 100 mg capsule take 1 tab PO qHS x 3 days, then take 2 tabs PO qHS x 3 days, then take 1 tab PO qAM + 2 tabs PO qHS x 3 days, then take 2 tabs PO BID VITAL SIGNS: BP 106/80 Pulse 63 Temp (Src) 97.8 (Temporal) Resp 18 SpO2 100% LAST COAG: No results found for this basename: inr:1,ptsec:1 PAST MEDICAL HISTORY Diagnosis Date - Thyroid cancer (HCC) PHYSICAL EXAMINATION General appearance: Well appearing, alert, in no acute distress, well-hydrated, well nourished. Neck: Supple; good ROM. Lungs: Lungs clear to auscultation, Airway unobstructed Heart: Regular rate and rhythm Abdomen: Abdomen soft, non-tender with palpation. Assessment M177.9 Median Arcuate Ligament Syndrome Plan: Celiac Plexus Block 1st Injection Suhas Cowan APRN.TRANSMITTER ENGINEER IN CHARGE [facility] OPERATIVE NOon 06-04-2021 OPERATIVE NO HNO ID: [id number] Author: Charanjit Evans MD Service: Pain Management Author Type: Physician Type: Operative Report Filed: 06/04/2021 1:34 PM Note Text: [facility] Pre-Procedure Note Patient Name: Jessa Hernandez SUBJECTIVE: Jessa Hernandez is a 36 year old female who presents to [facility]. This is her 1st. Patient denies any contraindications to the procedure including . 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 OBJECTIVE: BP 102/59 Pulse 64 Temp 36.6 ?C (97.8 ?F) (Temporal) Resp 16 SpO2 99% Significant changes in the patients condition since the History and Physical: No INFORMED CONSENT: The procedure, risks, benefits and options were discussed with patient. There are no contraindications to the procedure. The patient expressed understanding and agreed to proceed. The personnel performing the procedure was discussed. I verify that I personally obtained Jessa Henrandez's consent prior to the start of the procedure and the signed consent can be found on the patient's chart. Charanjit Evans MD June 04, 2021 PROCEDURE: CELIAC PLEXUS BLOCKADE: diagnostic DESCRIPTION OF PROCEDURE: The patient was brought to the fluoroscopy suite. IV access was obtained prior to the procedure. The patient was positioned prone on the fluoroscopy table. Continuous hemodynamic monitoring was initiated including blood pressure, EKG, and pulse oximetry. IV sedation was administered incrementally to allow the patient to remain comfortable and conversant throughout the procedure. The skin was prepped with duraprep and draped in a sterile fashion. The L1 vertebral body was identified by fluoroscopy. The skin and subcutaneous tissues overlying the left L1 transverse process was anesthetized using 5 cc of Lidocaine 0.5%. Using an air-free system, under fluoroscopic guidance, a 22 gauge 7" spinal needle was slowly advanced to the anterolateral border of the L1 vertebral body. The needle was then advanced further anterior to the L1 vertebral body using continuous aspiration until beginning to aspirate heme, suggesting intra-aortic needle position. The needle was advanced until a change in resistance of the needle was felt and aspiration of heme was no longer possible. 2 cc of Omnipaque 300 contrast was injected through the needle, confirming contrast spread anterior to and along the aorta. There was no evidence of vascular uptake. The position of the needle and contrast was confirmed using oblique, AP and lateral fluoroscopic imaging. Negative aspiration for blood was confirmed. A solution of 3 mL of Ropivacaine 0.5% was injected incrementally in 3-5 mL aliquots through the needle. The needle was removed and bleeding was nil. A sterile dressing was applied. Jessa Hernandez was taken to the Post-block Recovery Area for further observation. Sedation: see nsg notes. mild sedation anxiolysis. Dr. Evans was present during the entire procedure. Charanjit Evans MD June 04, 2021 [facility] Post-Procedure Note Patient name: Jessa Hernandez ASSESSMENT: Pre Procedure diagnosis: R10.9 abdominal pain I77.4 median arcuate ligament syndrome Post-Procedure diagnosis: same Post Procedure Pain Level: 1 on a scale of 0-10. Postoperative Nausea/Vomiting (PONV): absent Postoperative hydration status: adequate no specimen, no ebl Incision/Procedure Start Time: 1:19 PM Incision Close/Procedure End Time: 1:29 PM PLAN: -Call with % relief x #hrs. - RTC prn - The treatment plan was discussed with the patient. Post procedure instructions were reviewed and the patient voiced understanding. Jessa Hernandez was discharged to Home. Condition at the time of discharge was Good Charanjit Evans MD June 04, 2021 day of surgery [facility] 04-14-2021 [facility] Telephone ([facility]) JESSA HERNANDEZ ([id number]) 1985 F Date Time Provider Department 04/14/21 CHARANJIT EVANS [facility] During your visit today, we recorded the following information about you: Zaria Londono LPN 04/14/2021 8:46 AM Signed Celiac olexus block scheduled, all instructions given verbally, no Mychart access due to relgion (renetta), all questions and concerns addressed Allergies As of Date: 04/14/2021 Noted Allergy Reaction BACTRIM (SULFAMETHOXAZOLE-TRIMETH* 2 - Rash Date Reviewed: 04/10/2021 Reviewed by: Wendi Manzo MA - Fully Assessed Reason for Visit: Pain Management Procedure [1377] Primary Visit Diagnosis:Median arcuate ligament syndrome (HCC) [I77.4] Order(s):SURGICAL REQUEST - ELECTIVE (03/2020) [[id number]] Order #: [id number]: 1 Prescriptions as of 04/14/2021 - traMADol (ULTRAM) 50 mg tablet Take 50 mg by mouth twice daily as needed. - sertraline (ZOLOFT) 25 mg tablet Take 25 mg by mouth once daily. - levothyroxine 88 mcg cap Take 88 mcg by mouth daily before breakfast. - gabapentin (NEURONTIN) 100 mg capsule take 1 tab PO qHS x 3 days, then take 2 tabs PO qHS x 3 days, then take 1 tab PO qAM + 2 tabs PO qHS x 3 days, then take 2 tabs PO BID Problem List As Of Date: 04/14/2021 (None) Encounter Status:Closed by ZARIA LONDONO on 04/14/21 [facility] 04-11-2021 [facility] Telephone ([facility]) JESSA HERNANDEZ ([id number]) 1985 F Date Time Provider Department 04/11/21 CHARANJIT EVANS [facility] During your visit today, we recorded the following information about you: Karmen Mendieta Pss 04/11/2021 9:59 AM Signed Patient called and want to schedule celiac bloc with Dr Evans, Please call to discuss and advise and schedule. Zaria Londono LPN 04/14/2021 7:30 AM Signed Will call Allergies As of Date: 04/11/2021 Noted Allergy Reaction BACTRIM (SULFAMETHOXAZOLE-TRIMETH* 2 - Rash Date Reviewed: 04/10/2021 Reviewed by: Wendi Manzo MA - Fully Assessed Reason for Visit: Procedure [88] Cmt: CELIAC BLOCK Prescriptions as of 04/14/2021 - traMADol (ULTRAM) 50 mg tablet Take 50 mg by mouth twice daily as needed. - sertraline (ZOLOFT) 25 mg tablet Take 25 mg by mouth once daily. - levothyroxine 88 mcg cap Take 88 mcg by mouth daily before breakfast. - gabapentin (NEURONTIN) 100 mg capsule take 1 tab PO qHS x 3 days, then take 2 tabs PO qHS x 3 days, then take 1 tab PO qAM + 2 tabs PO qHS x 3 days, then take 2 tabs PO BID Problem List As Of Date: 04/11/2021 (None) Encounter Status:Closed by ZARIA LONDONO on 04/14/21 [facility] 04-10-2021 CNOV Office Visit ([facility] ) MARYRASHADJESSA J ([id number]) 1985 F Date Time Provider Department 04/10/21 12:30 PM MACIEL HELMS During your visit today, we recorded the following information about you: Pulse Blood pressure 65/minute 115/54 Maciel Helms MD 04/20/2021 3:16 PM [facility] [place] DEPARTMENT OF VASCULAR SURGERY OUTPATIENT VISIT DATE April 10, 2021 CHIEF COMPLAINT: MALS HISTORY OF PRESENT ILLNESS: Consultation at the request of Dr. Maciel Helms for an opinion regarding MALS . A copy of my final recommendations will be communicated back to the requesting physician by way of shared Medical record or letter via US mail. Ms. Hernandez is a 36 year old female who presents today with chronic abdominal pain. Ongoing issue for 8 years that is getting progressively worse over the past 5-6 month Over the past few month she gets almost daily abdominal pain and pain at night that wakes her up The pain is epigastric r egion and will radiate around the left side to her back. Associated with nausea. No emesis. Patient is very caseous what she eats. More pain occurs with eating heavy, greasy foods or ice cream. Currently , there is no weight loss. She lost 10-15 lbs ~ 7 month ago. 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 Pt saw Dr Evans for a consult for celiac plexus block but she never proceed. He prescribed the Gabapentin but Pt did not take it. it yet. She has rx for Tramadol . I personally obtained the history of present illness. Maciel Helms MD STUDIES: Mesenteric Duplex: Celiac: Dynamic elevated velocities due to median arcuate ligament compression. Superior mesenteric artery: 0-69% stenosis. No evidence of hemodynamically significant stenosis. Inferior mesenteric artery: 0-69% stenosis. No evidence of hemodynamically significant stenosis. Elevated Celiac artery velocities at origin that resolve with inspiration as well as standing. ? RIGHT RENAL Right renal artery: Patent. ? LEFT RENAL Left renal artery: Patent. PAST MEDICAL HISTORY Diagnosis Date - Thyroid cancer (HCC) PAST SURGICAL HISTORY Procedure Laterality Date - THYROIDECTOMY SOCIAL HISTORY Social History Tobacco Use - Smoking status: Never Smoker - Smokeless tobacco: Never Used Substance Use Topics - Alcohol use: Never - Drug use: Never No family history on file. ALLERGIES: ALLERGIES Allergen Reactions - Bactrim [Sulfametho* Rash MEDICATIONS: traMADol (ULTRAM) 50 mg tablet Take 50 mg by mouth twice daily as needed. sertraline (ZOLOFT) 25 mg tablet Take 25 mg by mouth once daily. levothyroxine 88 mcg cap Take 88 mcg by mouth daily before breakfast. gabapentin (NEURONTIN) 100 mg capsule take 1 tab PO qHS x 3 days, then take 2 tabs PO qHS x 3 days, then take 1 tab PO qAM + 2 tabs PO qHS x 3 days, then take 2 tabs PO BID REVIEW OF SYSTEMS: GENERAL: Denies fever, chills, night sweats, or changes in weight. HEENT: negative NEURO: Denies any TIA/amaurosis symptoms, weakness or paralysis. CARDIO: No angina No ME RESPIRATORY: No COPD No ZHONG ENDO: No Diabetes No Thyroid Disease GI: Positive for abdominal discomfort : Negative for dysuria Negative for hematuria RENAL: No history of ESRD No history of Renal Insufficiency MUSCULOSKELETAL: Negative for low chronic back pain SKIN: Negative for rash, ulcers, lesions I personally interviewed, confirmed and edited the above information if obtained by others. PHYSICAL EXAMINATION: BP 115/54 (BP Site: Left Arm, BP Position: Sitting, BP Cuff Size: Regular Adult) Pulse 65 General: Healthy, alert, no distress, cooperative, Smiling Carotid: No bruits and Pulse 4/4 bilaterally Abd: ND/NT Extremities: no edema and no ulcerations Neuro: Awake, alert, and oriented., Gait normal. Sensation grossly intact., CN II-XII grossly intact. IMPRESSION: Ms. 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 She has lost 10 to 15 pounds over the last 6 months. Her upper and lower GI work-up has been normal. She is scheduled to get a celiac block plexus if this relieves her pain then we will proceed with a median arcuate ligament release. 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 Normal [facility] CTA ABD/PEL W IVCONon 2020 CTA ABD/PEL W IVCON * * *Final Report* * * DATE OF EXAM: Apr 10 2021 8:24AM [facility] 0311 - CTA ABD/PEL W IVCON / PROCEDURE REASON: Celiac artery compression syndrome (HCC) * * * * Physician Interpretation * * * * RESULT: EXAMINATION: CTA ABD/PEL W IVCON CLINICAL INFORMATION: Celiac artery compression syndrome (HCC) High-resolution contrast-enhanced helical CT of the abdomen and pelvis was performed, timed to the arterial phase. 3-D processing was performed by the physician on an independent work station, with MIP and volume-rendering techniques. Contrast: IV: 105 ml of Omnipaque 350 Oral: None CT Radiation dose: Integrated Dose-length product (DLP) for this visit = 289 mGy*cm. CT Dose Reduction Employed: Automated exposure control(AEC) and iterative recon COMPARISON: 12/18/2019 CT abdomen and pelvis from outside hospital. 06/15/2019 CTA chest, abdomen and pelvis from outside hospital. RESULT: Vasculature: There is severe narrowing of the celiac artery at its origin with some poststenotic dilation of the distal celiac artery measuring up to 8 mm. This is relatively similar in appearance to 06/15/2019. The celiac access is otherwise grossly patent. The SMA is patent. The portal vein and branches, splenic vein, SMV, and hepatic veins are patent. No significant atherosclerotic change of the well visualized vasculature of the abdomen and pelvis. No abdominal aortic or iliac artery aneurysm. Liver: No mass. Biliary: No bile duct dilation. Gallbladder is unremarkable. Spleen: No mass. No splenomegaly. Pancreas: No mass or duct dilation. Adrenals: No mass. Kidneys: No mass, calculus or hydronephrosis. GI tract: No dilation or wall thickening. Lymph nodes: No abdominal or pelvic lymphadenopathy. Mesentery/Peritoneum: No mass. No abdominal ascites. Retroperitoneum: No mass. Pelvis: No mass or fluid collection. Trace dependent layering free fluid in the pelvis, likely physiologic. Bones/Soft Tissues: No destructive osseous lesion. Subcutaneous soft tissues are overall unremarkable. Lower thorax: Unremarkable. IMPRESSION: Severe narrowing of the celiac artery at its origin with apparent poststenotic dilation. Findings may suggest median arcuate ligament syndrome in the proper clinical setting. This appears relatively similar to the 06/15/2019 CT. Transcribed Using Voice Recognition Transcribe Date/Time: Apr 10 2021 1:47P Dictated by: BECK LYONS DO This examination was interpreted and the report reviewed and electronically signed by: BECK LYONS DO on Apr 10 2021 2:05PM EST [id number] [facility] [place] [facility] [place] 08-04-2019 [facility] Surgical Pathology Department Name JESSA HERNANDEZ Pathologist: BETTIE CALERO M.D., PhD. Date of Procedure: 08/04/2019 Date Received: 08/04/2019 Date Reported 08/09/2019 Submitting Physician: CAMILLA RAYA DO Location: [facility] Other External # FINAL DIAGNOSIS A. GASTRIC ANTRUM, BIOPSY: --GASTRIC ANTRAL-TYPE MUCOSA WITH MILD REACTIVE GASTROPATHY --NO HELICOBACTER PYLORI IDENTIFIED The gross and/or microscopic findings were reviewed in conjunction with pathology resident, Edie Leavitt M.D. and pathology fellow, Tona Porter M.D. Electronically Signed Out By BTETIE CALERO M.D., PhD./WLI By the signature on this report, the individual or group listed as making the Final Interpretation/Diagnosis certifies that they have reviewed this case. Clinical History: abdominal pain R10.84 nausea R11.0 Specimens Submitted As: A: GASTRIC ANTRUM Gross Description: Received in formalin, labeled with the patient's name and hospital number and "gastric antrum", is a fragment of pena, soft tissue measuring 0.3 x 0.3 x 0.2 cm. The specimen is submitted in toto in one cassette. LMP lmp/08/07/2019 Normal [facility] Comment on above: Performed By: #### [facility] #### [facility] Surgical Pathology Department [id number] [facility] [id number] Initial Visit (Gastroenterol ogy)on 07-27-2019 Initial Visit (Gastroenterology) Diagnoses/Problems Assessed Generalized abdominal pain (789.07) (R10.84) Nausea and/or vomiting (787.01) (R11.2) Chronic constipation (564.00) (K59.09) Orders Generalized abdominal pain Start: Suprep Bowel Prep Kit 17.5-3.13-1.6 GM/177ML Oral Solution; USE DIRECTED1 Rx By: Camilla Raya; Dispense: 0 Days ; #:1 X 177 ML Bottle; Refill: 0;For: Generalized abdominal pain; ALISSA = N; Sent To: [facility] [place] [address] Colonoscopy; Status:Hold For - Scheduling; Requested for:[id number]; 1 Perform:[facility]; Due:25Oct2019;Ordered; For:Generalized abdominal pain; Ordered By:Asia Raya Patient competent to provide consent? : Yes-pt mentally competent to provide consent1 Generalized abdominal pain, Nausea and/or vomiting Endoscopy Ultrasound Upper; Status:Hold For - Scheduling; Requested for:[id number]; 1 Perform:[facility]; Due:[id number];Ordered; For:Generalized abdominal pain, Nausea and/or vomiting; Ordered By:Asia Raya Patient competent to provide consent? : Yes-pt mentally competent to provide consent1 1 Amended By: Camilla Raya; Jul 27 2019 8:09 AM ESTPatient Discussion/Summary Recommendations: 1. I reviewed the patient's previous imaging studies and the differential diagnosis was discussed 2.Upper endoscopy and lower is recommended. The procedure and sedation were discussed including but not limited to risk of bleeding, perforation and reaction to medication. The office endoscopy forms were reviewed and signed. The patient was instructed to bring someone to drive home after the test. All the patient's questions were answered. 3. We'll obtain a small bowel study to evaluate the remaining portion of the intestinal tract not seen with endoscopy 4. MiraLAX as needed for constipation and I also suggested maybe extra MiraLAX after her small bowel study 5. The lead her from the [facility] has been reviewed Provider Impressions Impression: 1. Generalized abdominal pain which may be secondary to constipation 2. Nausea 3. History of abnormal CT scan 4. Constipation Chief Complaint Abdominal pain and nausea History of Present Illness 34-year-old female is seen in GI evaluation for chronic abdominal pain and nausea. For several years she has been experiencing intermittent epigastric discomfort. This will occasionally radiate to the left and its role severe radiates to both sides of her abdomen. She has constant pain 24 hours per day but has noticed that since her thyroid surgery her pain has increased. She notices her pain mostly when she lays flat. She has nausea with rare episodes of vomiting. She denies weight loss. She has been slightly more constipated since having her thyroid surgery. Been no diarrhea or blood in her stool. She did have a CT scan which suggested celiac artery compression which may be consistent with median arcuate ligament syndrome. She has contacted a clinic in [place] which has requested a complete GI evaluation. There is no family history of gastrointestinal illnesses. Review of Systems Constitutional: no fever and no chills. Eyes: no eye pain and eyes not red. ENT: no lymphadenopathy and no nosebleeds. Cardiovascular: the heart rate was not slow and the heart rate was not fast. Respiratory: no wheezing and no cough. Genitourinary: no dysuria and no incontinence. Musculoskeletal: no arthralgias and no joint swelling. Integumentary: no rashes and no itching. Neurological: no confusion and no numbness. Psychiatric: not suicidal. Endocrine: no muscle weakness and no feelings of weakness. Hematologic/Lymphatic: no swollen glands and no swollen glands in the neck. Active Problems Problems Chronic constipation (564.00) (K59.09) Generalized abdominal pain (789.07) (R10.84) Nausea and/or vomiting (787.01) (R11.2) Past Medical History Problems History of anxiety (V11.8) (Z86.59) History of deep venous thrombosis (V12.51) (Z86.718) History of malignant neoplasm of thyroid (V10.87) (Z85.850) History of OCD (obsessive compulsive disorder) (V11.2) (Z86.59) History of seborrheic keratosis (V13.3) (Z87.2) Surgical History Problems History of Thyroidectomy total Family History Mother Family history of Alive and well Father Family history of Alive and well Child Family history of Alive and well Sibling Family history of Alive and well Social History Problems Denies alcohol consumption (V49.89) (Z78.9) Never smoked cigarettes (V49.89) (Z78.9) No caffeine use No illicit drug use Allergies Medication Bactrim Recorded By: Ness Olea; 07/26/2019 11:46:19 AM Current Meds Medication NameInstruction L-Thyroxine Sodium 112 MCG TABS Vitals Vital Signs Recorded: [id number] 07:49AM Heart Rate72 Siaveycb768 Wmuynndkn73 Height5 ft 3 in Nkgtnz321 lb BMI Tmuqxvsilk92.73 BSA Calculated1.54 O2 Phedqpqfqy00 WZD17Mif0695 Physical Exam Constitutional: General appearance: In no acute distress . Eyes: Conjunctiva and lids: No swelling, erythema or discharge. Anicteric Sclerae . Ears Nose, Mouth, and Throat: Lips, teeth, and gums: Normal, good dentition. Oropharynx without lesions. Neck: Supple, no lymphadenopathy. Thyroid Normal, no thyromegaly. Pulmonary: Respiratory effort: No increased work of breathing or signs of respiratory distress. Cardiovascular: Auscultation of heart: RRR without murmur. Examination of extremities for edema: Normal. Abdomen: Soft, non-tender. Bowel sounds normal. No hepatomegaly or splenomegaly. Lymphatic: Palpation of lymph nodes in neck: No lymphadenopathy. Musculoskeletal: Gait and station: Normal. Digits and nails:Normal without clubbing or cyanosis. Skin: No specific lesions, no spider angiomata or palmar erythema. Neurologic: Cranial nerves 2-12 intact. Results/Data CT scan from April: Questionable compression of celiac artery which may be consistent with immediate arcuate ligament syndrome, constipation CT scan from May was normal Signatures Electronically signed by : Camilla Raya DO; Jul 27 2019 8:11AM EST (Author) Normal Touch[employer] No Panel Informationon 05-17 TSH 0.05 {uIU/mL} Abnormal 0.358 - 3.74 {uIU/mL} [facility] ([facility]PP[facility]).; [employer]ont[employer] TELIDA [employer] [facility] [employer]IBA [employer], mokono. Work Phone: No Panel Informationon 04-21 Technical Specialist Cytology Report See Note Normal [facility] ([facility]).; [facility] [employer]. No Panel Informationon 03-27 MISC LAB TEST Normal [facility] ([facility]).; [facility] [facility] [employer]. Work Phone: TG AB 1.1 {IU/mL} Abnormal 0.0 - 0.9 {IU/mL} [facility] ([facility]PP[facility]).; [facility] [employer]. Work Phone: TSH 1.93 {uIU/mL} Normal 0.358 - 3.74 {uIU/mL} [facility] ([facility]PP[facility]).; [employer] TELIDA [employer] [facility] [employer]. Work Phone: No Panel Informationon 02-07 HCGSQUAL Negative Normal [facility] ([facility]PPI).; [employer] [facility] [employer]. Work Phone: No Panel Informationon 02-03 *THYROGLOB Normal [employer]; [employer] [facility] [employer]. Work Phone: TG AB 1.4 {IU/mL} Abnormal 0.0 - 0.9 {IU/mL} [facility]; [facility] Work Phone: TSH 82.80 {uIU/mL} Abnormal 0.358 - 3.74 {uIU/mL} [facility]; [facility] Work Phone: Laboratory - Chemistry and C hemistry - challengeon 01-17-2019 Calcium [Mass/Vol] 9.0 mg/dL Normal 8.5 - 10. 1 mg/dL [facility]; [facility] Work Phone: Chloride [Moles/Vol] 105 mmol/L Normal 98 - 107 mmol/L [facility]; [facility] Work Phone: CO2 [Moles/Vol] 27.0 mmol/L Normal 21.0 - 32.0 mmol/L [facility]; [facility] Work Phone: Creatinine [Mass/Vol] 0.75 mg/dL Normal 0.55 - 1.02 mg/dL [facility]; [facility] Work Phone: GFR/1.73 sq M.predicted among non-blacks MDRD (S/P/Bld) [Vol rate/Area] 94 mL/min/{1.73_m2} Normal [facility]; [facility] Work Phone: Glucose [Mass/Vol] 73 mg/dL Abnormal 74 - 106 mg/dL [facility]; [facility] Work Phone: Potassium [Moles/Vol] 3.8 mmol/L Normal 3.5 - 5.1 mmol/L [facility].; [facility] [employer] [facility]. Work Phone: Sodium [Moles/Vol] 140 mmol/L Normal 136 - 145 mmol/L [facility].; [employer] TELIDA [employer] [facility] [employer] [facility]. Work Phone: Urea nitrogen [Mass/Vol] 18 mg/dL Normal 7 - 18 mg/dL [facility].; [facility]ra [facility] [employer] [facility]. Work Phone: No Panel Informationon 01-17 BUN/CRE 24.1 {RATIO} Abnormal 10 - 20 {RATIO} [facility] [employer].; Sontra TELIDA [employer]one [facility] [employer] [facility]. Work Phone: EST GFR - AA 114 mL/min Normal [facility] [employer].; [employer] TELIDA [employer]six[employer]one [facility] [employer] [facility]. Work Phone: GAP 8 Normal 5 - 15 [facility] [employer].; [employer] TELIDA [employer] [facility] Eckert [employer] [facility]. Work Phone: SURG See Note Normal [facility] ([facility]PPI).; [employer] [facility] [employer] [facility]. Work Phone: IONIZED CAon 01-13-2019 IONIZED CA 1.13 MMOL/L Abnormal 1.16 - 1.32 mmol/L [facility] Comment on above: Order Comment: Isael s: M : 8 hours post op Performed By: #### L [id number] #### [facility] [address] [place] [address] No Panel Informationon 01-13 Performing Lab See Note Normal [employer].; U[employer]EA WirelessEK thesixtyone [facility], Inc. Work Phone: HCGon 01-12-2019 HCG Qn Negative Normal NEGATIVE [facility] Comment on above: Order Comment: Campu s: M Performed By: #### L [id number] #### [facility] [address] [place] [address] IONIZED CAon 01-12-2019 IONIZED CA 1.14 MMOL/L Abnormal 1.16 - 1.32 mmol/L [facility] Comment on above: Order Comment: Campu s: M : 8 hours post op Performed By: #### L [id number] #### [facility] [address] [place] [address] No Panel Informationon 01-12 HCG SER RESULT Negative Normal [employer].; [email or web address]. Work Phone: Performing Lab See Note Normal [employer].; [employer] [facility] [employer] App. Work Phone: ORon 01-12-2019 OPERATIVE REPORT Normal [facility] OR DATE OF SERVICE: PREOPERATIVE DIAGNOSIS: Malignant neoplasm of the thyroid gland. POSTOPERATIVE DIAGNOSIS: Malignant neoplasm of the thyroid gland. OPERATION: Left thyroid lobectomy (completion thyroidectomy). SURGEON: Rangel Alegre MD ANESTHESIA: General. INDICATIONS: This is a 33-year-old female who has undergone a previous right thyroid lobectomy for a solitary thyroid mass which measured approximately 3.5 cm. The final diagnosis came back as a papillary carcinoma of the thyroid gland, with evidence of capsular invasion. This was felt to be benign on frozen section at the time of the thyroid lobectomy. She is brought to the operating room at this time for a planned completion thyroidectomy in order to remove the residual left lobe of the thyroid gland. She is expected to require postoperative radioiodine therapy. The risks of the procedure, namely nerve injury, hoarseness, bleeding, infection, and hypocalcemia, have been discussed with the patient preoperatively and she has elected to proceed. The larynx was also evaluated with direct laryngoscopy and the patients vocal cords were noted to have normal motion. She is aware that there will be increased scarring and fibrosis present for this operation, and there is slight increased risk for potential of recurrent nerve injury. PROCEDURE: Patient is brought to the operating room and placed on the operating table in supine position. Orotracheal intubation general anesthesia was induced without complication. A shoulder roll was placed beneath the patients shoulders and the head was placed in gentle extension. The anterior neck was prepped and draped in sterile fashion. The patient had a healing thyroid incision which was approximately 3.5 cm in length, which would be used for the approach to the gland at this time. This area was locally infiltrated with 1% lidocaine with 1:100,000 concentration of epinephrine. After adequate time for vasoconstriction, the previous incision was removed using a no. 15 blade, and underlying fibrous and scar tissue was dissected free. Dissection was then carried down in the midline of the neck between the strap muscles using sharp scissor dissection, elevating a superior and inferior subplatysmal flap. Fibrous adhesions between the strap muscles were taken down, and the left-sided strap muscles were elevated off of the underlying left lobe of the thyroid gland. Minimally invasive thyroid retractors were utilized to retract the strap muscles away from the left thyroid lobe, which was bluntly dissected free from the overlying strap muscles and the lateral great vessels. Lateral feeding vessels were controlled. The lobe was reflected from lateral to medial. The superior vascular pedicle was isolated, divided and controlled using vascular clips and a [facility] PATIENT NAME: JESSA HERNANDEZ [address] [facility] [address] MEDICAL REC #: [id number] [place] [id number] ADMIT DATE: DISCHARGE DATE: 01/13/19 OPERATIVE REPORT ATTENDING PHY: Rangel Alegre MD harmonic scalpel. The left recurrent laryngeal nerve was identified and carefully followed as it entered the larynx, and was not injured. The inferior vascular pedicle was controlled near its entrance into the thyroid lobe, and the left inferior parathyroid gland was preserved. The left superior parathyroid gland was dissected free and preserved. The entire lobe was then reflected on the suspensory ligaments, which were cauterized and taken down using bipolar cautery, sharp dissection, and the harmonic scalpel. The entire left lobe of the thyroid, along with fibrous attachments to the anterior tracheal wall, were taken down using the harmonic scalpel, and the lobe was removed. There were no palpable abnormalities within this thyroid lobe. The left recurrent nerve was not injured and both parathyroid glands had been preserved. The neck was irrigated. Any additional bleeding was controlled using bipolar cautery. Aleks hemostatic powder was left in the operative bed along with a 10 mm small round drain brought out through a separate stab incision. The strap muscles were reapproximated using interrupted sutures of 3-0 Vicryl stitch. The platysma muscle was closed with the same suture material and the skin was closed using a running subcuticular 5-0 Vicryl stitch. There were no intraoperative complications. Estimated blood loss was 5 mL. Rangel Alegre MD [id number] SSI File#: [id number] CC: Rangel Alegre MD CC: Leonor Salvador MD Verified/Reviewed by 02/05/19 0656 CHANDRAKANT [facility] PATIENT NAME: JESSA HERNANDEZ [address] [facility] [address] MEDICAL REC #: [id number] [place] [address] ADMIT DATE: DISCHARGE DATE: 01/13/19 OPERATIVE REPORT ATTENDING PHY: Rangel Alegre MD [facility] Nasima SURG 01-12-2019 SURG --------- ----- Patient: JESSA HERNANDEZ ----- SPECIMEN: [id number] Collection Date: 01/12/19- Received: 01/12/19 Status: CARLOZ Rai Dr.: Rangel Alegre MD Ph# Othr. Dr.: Paul Stanton MD Material for Examination: A LEFT THYROID LOBE PRE-OP DIAGNOSIS: MALIGNANT NEOPLASM OF THYROID GLAND POST-OP DIAGNOSIS: NOT GIVEN SURGICAL PROCEDURE: LEFT THYROID LOBECTOMY, COMPLETION THYROIDECTOMY DIAGNOSIS A. Left thyroid lobe, lobectomy: - THYROID LOBE WITH TWO MICROSCOPIC FOCI OF PAPILLARY CARCINOMA, FOLLICULAR VARIANT (0.5 X 0.3 CM AND 0.1 X 0.1 CM) RESPECTIVELY, MARGINS FREE. - Focal benign adenomatoid nodule. - Focal fibrosis and foreign body giant cell reaction with acute and chronic inflammation. - No attached parathyroid tissue identified. GROSS DESCRIPTION The specimen is received in formalin and labeled with the patient's name, ID and designated #1 left thyroid. The specimen consists of a lobe of thyroid weighing 3.6 g and measuring 3.0 x 2.0 x 1.0 cm. The external surface demonstrates brown-red fibrous adhesions and shows focal nodular surface. No definite parathyroid gland is appreciated grossly. The external surface is inked blue. Cut section of the thyroid demonstrates brown-red cut surface with a very focal, small, nodular, white-pena lesion measuring 0.2-0.3 cm. The specimen is serially sectioned and submitted entirely in cassettes A1-A9, with cassette A5-A6 containing the white-pena nodular lesion. MICROSCOPIC DESCRIPTION Eighteen Yin stained slides examined. Intradepartmental consultation with Víctor King Jr., M.D. (A3, A7 and A9). COPIES TO: Rangel Alegre MD, Kim E MD Signed Verified/Reviewed by JOYCE DELGADO M.D. 01/17/19 This dictation was created using voice recognition software. Phonetic and/or minor grammatical errors may exist. ----- [facility] NAME: JESSA HERNANDEZ Pathology and Laboratory Medicine UNIT#: [id number] LOC: [facility] [place] Product Design Engineer: Joyce Delgado M.D. ROOM/BED: [facility] : 85 AGE/SEX: 33/F ORD.Ranegl Villalpando MD END OF REPORT Normal [facility] [place] No Panel Informationon 12-22 CONSULT See Note Normal [employer] [facility] Inc.; [employer] WirelessEK thesixtyone [facility] [employer] [facility]. Work Phone: Laboratory - Chemistry and C hemistry - challengeon 12-12-2018 Calcium [Mass/Vol] 9.1 mg/dL Normal 8.5 - 10. 1 mg/dL [facility] Inc.; [employer]one [facility] [employer]. Work Phone: Chloride [Moles/Vol] 105 mmol/L Normal 98 - 107 mmol/L [facility] Hospital[facility].; [employer] [facility] [employer]. Work Phone: CO2 [Moles/Vol] 30.0 mmol/L Normal 21.0 - 32.0 mmol/L [facility].; [employer] [facility] [employer]. Work Phone: Creatinine [Mass/Vol] 0.77 mg/dL Normal 0.55 - 1.02 mg/dL [facility]; GREELEY thesixtyone [facility]. Work Phone: GFR/1.73 sq M.predicted among non-blacks MDRD (S/P/Bld) [Vol rate/Area] 91 mL/min/{1.73_m2} Normal [facility].; [facility]. Work Phone: Glucose [Mass/Vol] 99 mg/dL Normal 74 - 106 mg/dL [facility]; [facility]. Work Phone: Potassium [Moles/Vol] 4.1 mmol/L Normal 3.5 - 5.1 mmol/L [facility]; [employer] thesixtyone [facility]. Work Phone: Sodium [Moles/Vol] 139 mmol/L Normal 136 - 145 mmol/L [facility]; [facility]. Work Phone: Urea nitrogen [Mass/Vol] 11 mg/dL Normal 7 - 18 mg/dL [facility]; GREELEY thesixtyone [facility] [employer] [facility]. Work Phone: No Panel Informationon 12-12 BUN/CRE 14.3 {RATIO} Normal 10 - 20 {RATIO} [facility] [employer] [facility].; [employer] the[employer]tyone [facility] [employer] [facility]. Work Phone: EST GFR - AA 111 mL/min Normal [facility]; [facility] [employer] [facility]. Work Phone: GAP 4 Abnormal 5 - 15 [facility] L[employer] [facility]anticokeFrontline GmbH; [facility] HOSPITALHealthrageous TELIDA thesixtyone [facility] [employer] [facility]. Work Phone: CONSULTon 12-08-2018 CONSULT --------- ----- Patient: JESSA HERNANDEZ ----- SPECIMEN: [id number] Collection Date: 12/08/18- Received: 12/12/18 Status: CARLOZ Rai Dr.: Rangel Alegre MD Ph# Othr. Dr.: Donis Esparza Material for Examination: THYROID LOBE COPIES TO: Rangel Alegre MD, Titus L Signed ___ SEE SCANNED REPORT 12/22/18 This dictation was created using voice recognition software. Phonetic and/or minor grammatical errors may exist. ----- [facility] NAME: JESSA HERNANDEZ Pathology and Laboratory Medicine UNIT#: [id number] LOC: [facility] Product Design Engineer: Joyce Delgado M.D. [facility] [id number] ROOM/BED: [employer] [facility] : 85 AGE/SEX: 33/F ORD.Rangel Villalpando MD END OF REPORT [facility] No Panel Informationon 12-08 Performing Lab See Note Normal [facility]it [facility] Inc.; [facility] Inc. Work Phone: SURG See Note Normal Paramjit [facility] Inc.; [facility], Inc. Work Phone: UR HCG QUAL Negative Normal Paramjit [facility].; [facility]. Work Phone: ORon 12-08-2018 OPERATIVE REPORT [facility] OR DATE OF SERVICE: PREOPERATIVE DIAGNOSIS: Right thyroid mass. 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 OPERATION: Right thyroid lobectomy. SURGEON: Rangel Alegre MD ANESTHESIA: General. INDICATIONS: This is a 33-year-old female who presents with an enlarging mass in the right thyroid lobe. This has enlarged to over 4 cm. It is quite visible and is causing mild compressive symptoms and deviation of the trachea. She has undergone a preoperative fine needle aspiration which demonstrates cellular content which is likely benign. She has been recommended a right thyroid lobectomy with the possibility of total thyroidectomy based on intraoperative pathology results. The risks of the procedure, namely nerve injury, hoarseness, bleeding, infection, and hypocalcemia, have been reviewed with the patient preoperatively and she has elected to proceed. PROCEDURE: The patient was brought in the operating room, placed on the operating table in a supine position. Orotracheal intubation general anesthesia was induced without complication. A shoulder roll was placed beneath the patient's shoulders and the head was placed in gentle extension. The anterior neck was prepped and draped in a sterile fashion. The patient had an obvious bulge and mass effect to the right lower neck in the area of this thyroid mass. A minimal thyroid incision would be utilized approximately 3 cm in length. It was placed just below the level of the cricoid cartilage. It was locally infiltrated with 1% lidocaine with 1:100,000 concentration of epinephrine. After adequate time for vasoconstriction, the incision was made and carried through the underlying platysma muscle. Superior and inferior subplatysmal flaps were elevated and held in position with a self-retaining retractor. Minimally invasive retractors were utilized to expose the area. The patient had a sizeable mass occupying the right thyroid lobe. Blunt digital and instrument dissection was used to help mobilize the right thyroid lobe from the overlying strap muscles. The superior vascular pedicle was isolated, divided, and controlled using vascular clips and a Harmonic scalpel. As the lobe was reflected from lateral to medial, the strap muscles were swept away and blunt gauze dissection was used to help peel back the soft tissue, exposing vascular attachments and the right recurrent laryngeal nerve. The right recurrent nerve was carefully followed as it entered the larynx using a Conklin nerve dissector. The right superior parathyroid gland was identified and preserved. Overlying vessels were controlled using bipolar cautery and when appropriate small vascular clips. The inferior vascular pedicle was isolated, divided, and controlled using vascular clips. The right inferior parathyroid gland was preserved. The lobe was reflected on the suspensory ligaments [facility] PATIENT NAME: JESSA HERNANDEZ [address] Le MEDICAL REC #: [id number] [place] [address] ADMIT DATE: DISCHARGE DATE: 12/09/18 OPERATIVE REPORT ATTENDING NIMCOY: Rangel Alegre MD which were cauterized and sharply taken down and the thyroid lobe and isthmus were mobilized and then divided at their attachment to the left thyroid lobe using the Harmonic scalpel. The entire right lobe with the contained mass was then removed and submitted to Pathology for evaluation. Frozen section diagnosis revealed findings consistent with a follicular neoplasm with no evidence of capsular invasion. The neck was copiously irrigated. Any additional bleeding was controlled. There was no injury to the right recurrent nerve. Aleks hemostatic powder was left in the operative bed along with a 10-mm small round drain. This was brought out through a separate stab incision. The strap muscles and platysma muscle were approximated using interrupted sutures of 3-0 absorbable stitch and the skin was closed using a running subcuticular 4-0 absorbable stitch. There were no intraoperative complications and estimated blood loss was 10 mL. Rangel Alegre MD [id number] SSI File#: [id number] CC: Rangel Alegre MD CC: Leonor Salvador MD Verified/Reviewed by 02/05/19 0656 CHANDRAKANT [facility] PATIENT NAME: JESSA HERNANDEZ [address] Le MEDICAL REC #: [id number] [place] [address] ADMIT DATE: DISCHARGE DATE: 12/09/18 OPERATIVE REPORT ATTENDING PHY: Rangel Alegre MD [facility] SURG 12-08-2018 SURG --------- ----- Patient: MARYJESSA ----- SPECIMEN: [id number] Collection Date: 12/08/18 Received: 12/08/18 Status: CARLOZ Rai Dr.: Rangel Alegre MD Ph# Othr. : Donis Esparza Othr. DrMonse: Leonor Salvador MD Material for Examination: A RIGHT THYROID LOBE PRE-OP DIAGNOSIS: BENIGN NEOPLASM OF THYROID GLAND POST-OP DIAGNOSIS: SAME SURGICAL PROCEDURE: RIGHT THYROID LOBECTOMY DIAGNOSIS A. 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 One parathyroid gland, no pathological diagnosis. One lymph node, no metastatic carcinoma identified. THYROID CANCER CHECKLIST AJCC Stage: pT2 N0 Specimen Type: Lobectomy Tumor Site: Right lobe Tumor Focality: Single focus Tumor Size (largest nodule): 3.4 x 2.0 x 1.5 cm Histologic Type: Follicular variant of papillary carcinoma Margins: Free of tumor Venous/Lymphatic (Large/Small Vessel) Invasion (V/L): Not identified Additional Pathologic Findings: None COMMENT This case was seen in consultation with Mejia Olvera M.D., at the [facility]. The diagnoses represents her opinion, with which we concur. FROZEN SECTION DIAGNOSIS A. Follicular neoplasm, deferred to permanent sections for evaluation of entire capsule. Per Sharifa Dill M.D. on December 08, 2018 at 11:37 am. GROSS DESCRIPTION The specimen is received fresh and labeled with the patient's name, ID and designated right thyroid lobe, is a red-brown portion of tissue grossly consistent with thyroid, 15.2 g and 4.6 x 2.7 x 2.2 cm. The capsular surface is red-brown and roughened and inked black. A definite parathyroid is not identified. A portion of possible isthmus is identified, 1.0 x ----- [facility] NAME: JESSA HERNANDEZ Pathology and Laboratory Medicine UNIT#: [id number] LOC: MonseGA Product Design Engineer: Joyce Delgado M.D. [facility]#: [id number] ROOM/BED: Ku : 85 AGE/SEX: 33/F ORD.Rangel Villalpando MD CONTINUED ON NEXT PAGE ----- Patient: JESSA HERNANDEZ Unit#: [id number] (continued) SPECIMEN: [id number] GROSS DESCRIPTION 1.0 x 0.6 cm. The isthmus margin is inked green. The specimen is serially sectioned from superior to inferior and identified in the inferior portion of the thyroid and extending into the mid portion is a pena focally red nodule, 3.4 x 2.0 x 1.5 cm. The remainder of the thyroid is red-brown and grossly unremarkable. The isthmus is unremarkable. Grad Intern sections are submitted in cassettes AFS1, A2 through A12. SECTION SUMMARY: AFS1. Frozen section remnant of the nodule A2-10. The entire capsule of the nodule A11. The isthmus bisected A12. Unremarkable thyroid MICROSCOPIC DESCRIPTION 21 Yin stained sections and one touch imprint examined. COPIES TO: Rangel Alegre MD, Titus L Harold, Suzanne M. MD Signed Verified/Reviewed by SHARIFA DILL M.D. 12/20/18 This dictation was created using voice recognition software. Phonetic and/or minor grammatical errors may exist. ----- [facility] NAME: JESSA HERNANDEZ Pathology and Laboratory Medicine UNIT#: [id number] LOC: ALEENA Product Design Engineer: Joyce Delgado M.D. [facility] [id number] ROOM/BED: [facility] : 85 AGE/SEX: 33/F ORD.DR. Alegre,Rangel Hollins MD END OF REPORT Normal [facility] URINE PREGNANCYon 12-08-2018 HCG.beta subunit ( test) Ql (U) Negative Normal NEGATIVE [facility] Comment on above: Order Comment: Isael s: M Performed By: #### L [id number] #### [facility] [place] [address] UR SPEC GRAV 1.032 Normal 1.005 - 1.030 [facility] Comment on above: Order Comment: Isael s: M Performed By: #### L [id number] #### [facility] [address] [place] [id number] Laboratory - Chemistry and C hemistry - challengeon 09-26-2018 Albumin BCP dye [Mass/Vol] 4.1 g/dL Normal 3.2 - 4.8 g/dL [facility], [facility].; [facility] Albumin/Globulin [Mass ratio] 1.4 {ratio} Normal 0.9 - 1.6 {ratio} [facility].; [facility] ALP [Catalytic activity/Vol] 60 U/L Normal 38 - 126 U/L [facility].; [facility] ALT No additional P-5'-P [Catalytic activity/Vol] 55 U/L Abnormal 10 - 49 U/L [facility] ALT With P-5'-P [Catalytic activity/Vol] 55 U/L Abnormal 10 - 49 U/L [facility]; [facility]. AST [Catalytic activity/Vol] 30 U/L Normal 8 - 34 U/L [facility]; [facility]. AST With P-5'-P [Catalytic activity/Vol] 30 U/L Normal 8 - 34 U/L [facility]; [facility] Bilirubin [Mass/Vol] 0.5 mg/dL Normal 0.2 - 1.2 mg/dL [facility]; [facility] Calcium [Mass/Vol] 9.1 mg/dL Normal 8.4 - 10. 1 mg/dL [facility]; [facility] Chloride [Moles/Vol] 104 mmol/L Normal 98 - 110 meq/L [facility]; [facility]. Cholesterol [Mass/Vol] 187 mg/dL Normal 50 - 199 mg/dL [facility]; [facility]. Cholesterol in HDL [Mass/Vol] 76 mg/dL Abnormal 40 - 59 mg/dL [facility]; [facility]. Cholesterol in LDL [Mass/Vol] 101 mg/dL Normal 0 - 129 mg/dL [facility]; [facility], [facility]. CO2 [Moles/Vol] 29 mmol/L Normal 22 - 32 meq/L [facility]; [facility] Creatinine [Mass/Vol] 0.64 mg/dL Normal 0.50 - 1.20 mg/dL [facility]; [facility]. GFR/1.73 sq M.predicted among blacks MDRD (S/P/Bld) [Vol rate/Area] mL/min/{1.73_m2} Normal [facility]; [facility], [facility]. Work Phone: GFR/1.73 sq M.predicted among non-blacks MDRD (S/P/Bld) [Vol rate/Area] mL/min/{1.73_m2} Normal [facility]; [facility], [facility] Work Phone: Globulin (S) [Mass/Vol] 3.0 g/dL Normal 1.5 - 3.8 g/dL [facility]; [facility], [facility] Glucose [Mass/Vol] 112 mg/dL Abnormal 70 - 110 mg/dL [facility]; [facility], [facility] Iron [Mass/Vol] 104 ug/dL Normal 37 - 170 ug/dL [facility]; [facility], [facility]. Potassium [Moles/Vol] 3.7 mmol/L Normal 3.5 - 5.0 meq/L [facility]; [facility], [facility] Protein [Mass/Vol] 7.1 g/dL Normal 6.0 - 8.5 g/dL [facility]; [facility], [facility]. Sodium [Moles/Vol] 143 mmol/L Normal 136 - 145 meq/L [facility]; [facility], [facility]. Triglyceride [Mass/Vol] 50 mg/dL Normal 3 - 149 mg/dL [facility]; [facility], [facility]. TSH Qn 1.540 m[IU]/L Normal 0.360 - 3.740 {mcIU/mL} [facility]; [facility], [facility] Urea nitrogen [Mass/Vol] 9.0 mg/dL Normal 8.0 - 22.0 mg/dL [facility]; [facility], [facility] Urea nitrogen/Creatinine [Mass ratio] 14.1 {ratio} Normal 10.0 - 22.0 {ratio} [facility].; [facility] Laboratory - Hematology and Cell countson 09-26-2018 Basophils (Bld) [#/Vol] 0.10 {10^3/mcL} Normal 0.00 - 0.27 {10^3/mcL} [facility].; [facility] Work Phone: Basophils/100 WBC (Bld) 1.2 % Normal 0.0 - 2.5 % [facility].; [facility] Work Phone: Eosinophils/100 WBC (Bld) 1.4 % Normal 0.0 - 6.0 % [facility].; [facility] Work Phone: Erythrocyte distribution width (RBC) [Ratio] 12.9 % Normal 11.5 - 15.5 % [facility].; [facility] Hematocrit (Bld) [Volume fraction] 40.2 % Normal 34.0 - 46.0 % [facility].; [facility] Hemoglobin (Bld) [Mass/Vol] 13.7 g/dL Normal 12.0 - 16.0 g/dL [facility].; [facility] Lymphocytes (Bld) [#/Vol] 2.40 {10^3/mcL} Normal 0.90 - 4.32 {10^3/mcL} [facility].; [facility], [employer] Work Phone: Lymphocytes/100 WBC (Bld) 27.3 % Normal 20.0 - 40.0 % [facility] [employer] [facility] Work Phone: MCH (RBC) [Entitic mass] 30.8 pg Normal 27.0 - 33.0 pg [facility]; [facility] MCHC (RBC) [Mass/Vol] 34.1 g/dL Normal 32.0 - 36.0 g/dL [facility]; [facility], [facility] MCV (RBC) [Entitic vol] 90.5 fL Normal 80.0 - 99.0 fL [facility]; [facility], [facility] Monocytes (Bld) [#/Vol] 0.40 {10^3/mcL} Normal 0.09 - 1.40 {10^3/mcL} [facility]; [facility], [facility] Work Phone: Monocytes/100 WBC (Bld) 4.6 % Normal 2.0 - 13.0 % [facility]; [facility] Work Phone: Neutrophils (Bld) [#/Vol] 5.80 {10^3/mcL} Normal 2.25 - 8.10 {10^3/mcL} [facility]; [facility], [facility]. Work Phone: Neutrophils/100 WBC (Bld) 65.5 % Normal 50.0 - 75.0 % [facility]; [facility] Work Phone: Platelet mean volume (Bld) [Entitic vol] 7.8 fL Normal 6.6 - 10.5 fL [facility]; [facility], [facility] Platelets (Bld) [#/Vol] 325 {10^3/mcL} Normal 150 - 450 {10^3/mcL} [facility]; [facility], [facility] RBC (Bld) [#/Vol] 4.45 {10^6/mcL} Normal 4.10 - 5.30 {10^6/mcL} [facility] WBC (Bld) [#/Vol] 8.90 {10^3/mcL} Normal 4.50 - 10.80 {10^3/mcL} [facility] No Panel Informationon 09-26 Electrolyte Balance 10.0 meq/L Normal 4.0 - 15 .0 meq/L [facility]; [facility]. Eosinophil, Absolute 0.10 {10^3/mcL} Normal 0.00 - 0.65 {10^3/mcL} [facility] [employer], [facility]. Work Phone: Laboratory - Blood bankon Albumin given [Vol] 4.0 g/dL Normal 3.2 - 4. 8 g/dL [facility] Laboratory - Chemistry and C hemistry - challengeon 07-07-2016 25-hydroxyvitamin D3 [Mass/Vol] 25 ng/mL Normal [facility]. Albumin/Globulin [Mass ratio] 1.4 {ratio} Normal 0.9 - 1.6 [facility] [employer] [facility] ALP [Catalytic activity/Vol] 52 U/L Normal 38 - 126 U/L [facility].; [facility] [employer] [facility], [employer]. ALT [Catalytic activity/Vol] 21 U/L Normal 10 - 49 U/L [facility] [employer] [facility].; [facility] [employer] [facility], [employer]. AST [Catalytic activity/Vol] 13 U/L Normal 8 - 34 U/L [facility] [employer] [facility].; [facility] [employer] [facility]. Base excess Calc (BldMV) [Moles/Vol] 7.0 meq/L Normal 4.0 - 15.0 meq/L [facility]; [facility] Bilirubin direct and total panel [Mass/Vol] 0.5 mg/dL Normal 0.2 - 1.2 mg/dL [facility]; [facility] Calcium [Mass/Vol] 9.2 mg/dL Normal 8.4 - 10. 1 mg/dL [facility]; [facility] Chloride [Moles/Vol] 104 mmol/L Normal 98 - 110 meq/L [facility]; [facility] Cholesterol [Mass/Vol] 180 mg/dL Normal 50 - 199 mg/dL [facility]; [facility] Cholesterol in HDL [Mass/Vol] 78 mg/dL Abnormal 40 - 59 mg/dL [facility]; [facility] Cholesterol in LDL [Mass/Vol] 84 mg/dL Normal 0 - 129 mg/dL [facility]; [facility] CO2 [Moles/Vol] 29 mmol/L Normal 22 - 32 meq/L [facility]; [facility] Creatinine [Mass/Vol] 0.72 mg/dL Normal 0.50 - 1.20 mg/dL [facility]; [facility] Free T4 index Calc [Mass/Vol] 8.65 Normal 3.60 - 14.00 [facility]; [facility] Work Phone: GFR/1.73 sq M.predicted among blacks MDRD (S/P/Bld) [Vol rate/Area] mL/min/{1.73_m2} Normal [facility]; [facility] Work Phone: GFR/1.73 sq M.predicted among non-blacks MDRD (S/P/Bld) [Vol rate/Area] mL/min/{1.73_m2} Normal [facility]; [facility] Work Phone: Globulin (S) [Mass/Vol] 2.9 g/dL Normal 1.5 - 3.8 g/dL [facility]; [facility] Glucose [Mass/Vol] 99 mg/dL Normal 70 - 110 mg/dL [facility]; [facility] Iron [Mass/Vol] 90 ug/dL Normal 37 - 170 ug/dL [facility]; [facility] Iron binding capacity [Mass/Vol] 327 ug/dL Normal 250 - 500 ug/dL [facility]; [facility] Iron saturation [Mass fraction] 28 % Normal [facility]; [facility] Potassium [Moles/Vol] 4.0 mmol/L Normal 3.5 - 5.0 meq/L [facility]; [facility] Protein [Mass/Vol] 6.9 g/dL Normal 6.0 - 8.5 g/dL [facility]; [facility] Sodium [Moles/Vol] 140 mmol/L Normal 136 - 145 meq/L [facility]; [facility] T4 [Mass/Vol] 8.4 ug/dL Normal 4.8 - 13.9 ug/dL [facility]; [facility] T4/Triiodothyronine (T3) uptake index [Mass ratio] 1.03 {ratio} Normal 0.76 - 1.23 {ratio} [facility]; [facility] Triglyceride [Mass/Vol] 91 mg/dL Normal 3 - 149 mg/dL [facility]; [facility] TSH Qn 0.93 m[IU]/L Normal 0.36 - 3.74 {mcIU/mL} [facility]; [facility] Urea nitrogen [Mass/Vol] 12.0 mg/dL Normal 8.0 - 22.0 mg/dL [facility]; [facility] Urea nitrogen/Creatinine [Mass ratio] 16.7 mg/mg Normal 10.0 - 22.0 [facility]; [facility] Laboratory - Hematology and Cell countson 07-07-2016 Basophils/100 WBC (Bld) 1.3 % Normal 0.0 - 2.5 % [facility]; [facility] Eosinophils/100 WBC (Bld) 2.5 % Normal 0.0 - 6.0 % [facility]; [facility] Erythrocyte distribution width (RBC) [Ratio] 12.8 % Normal 11.5 - 15.5 % [facility]; [facility] ESR Photometric method (Bld) [Velocity] 4 mm/h Normal 0 - 20 mm/h [facility]; [facility] Hematocrit (Bld) [Volume fraction] 40.2 % Normal 34.0 - 46.0 % [facility]; [facility] Hemoglobin (Bld) [Mass/Vol] 13.6 g/dL Normal 12.0 - 16.0 g/dL [facility]; [facility] Lymphocytes/100 WBC (Bld) 34.4 % Normal 20.0 - 40.0 % [facility]; [facility] MCH (RBC) [Entitic mass] 30.5 pg Normal 27.0 - 33.0 pg [facility]; [facility], [facility]. MCHC (RBC) [Mass/Vol] 34.0 g/dL Normal 32.0 - 36.0 g/dL [facility]; [facility], [facility] MCV (RBC) [Entitic vol] 89.8 fL Normal 80.0 - 99.0 fL [facility]; [facility] Monocytes/100 WBC (Bld) 5.0 % Normal 2.0 - 13.0 % [facility]; [facility], [facility] Neutrophils (Bld) [#/Vol] 3.80 {10_3/mcL} Normal 1.90 - 7.90 {10_3/mcL} [facility]; [facility], [facility] Neutrophils/100 WBC (Bld) 56.8 % Normal 50.0 - 75.0 % [facility].; [facility], [facility] Platelet mean volume (Bld) [Entitic vol] 8.3 fL Normal 6.6 - 10.5 fL [facility].; [facility], [facility] Platelets (Bld) [#/Vol] 322 {10_3/mcL} Normal 150 - 450 {10_3/mcL} [facility].; [facility], [facility]. RBC (Bld) [#/Vol] 4.47 {10_6/mcL} Normal 4.10 - 5.30 {10_6/mcL} [facility].; [facility], [facility]. WBC (Bld) [#/Vol] 6.60 {10_3/mcL} Normal 4.50 - 10.80 {10_3/mcL} [facility], [facility].; [facility], [facility]. Laboratory - Blood bankon Albumin given [Vol] 4.1 g/dL Normal 3.2 - 4. 8 g/dL [facility].; [facility] Laboratory - Chemistry and C hemistry - challengeon 09-11-2015 Albumin/Globulin [Mass ratio] 1.3 {ratio} Normal 0.9 - 1.6 [facility]; [facility] ALP [Catalytic activity/Vol] 62 U/L Normal 38 - 126 U/L [facility]; [facility] ALT [Catalytic activity/Vol] 19 U/L Normal 10 - 49 U/L [facility]; [facility]. AST [Catalytic activity/Vol] 12 U/L Normal 8 - 34 U/L [facility]; [facility] [place], [facility] Base excess Calc (BldMV) [Moles/Vol] 8.0 meq/L Normal 4.0 - 15.0 meq/L [facility]; [facility], [place], [facility] Bilirubin direct and total panel [Mass/Vol] 0.5 mg/dL Normal 0.2 - 1.2 mg/dL [facility]; [facility], [place], [facility] Calcium [Mass/Vol] 8.8 mg/dL Normal 8.4 - 10. 1 mg/dL [facility]; [facility], [place], [facility]. Chloride [Moles/Vol] 104 mmol/L Normal 98 - 110 meq/L [facility]; [facility], [place], [facility] Cholesterol [Mass/Vol] 159 mg/dL Normal 50 - 199 mg/dL [facility]; [facility], [place], [facility]. Cholesterol in HDL [Mass/Vol] 69 mg/dL Abnormal 40 - 59 mg/dL [facility]; [facility], [place], [facility]. Cholesterol in LDL [Mass/Vol] 75 mg/dL Normal 0 - 129 mg/dL [facility]; [facility], [place], [facility]. CO2 [Moles/Vol] 29 mmol/L Normal 22 - 32 meq/L [facility]; [facility], [place], [facility] Creatinine [Mass/Vol] 0.66 mg/dL Normal 0.50 - 1.20 mg/dL [facility]; [facility], [place], [facility] Free T4 index Calc [Mass/Vol] 10.99 Normal 3.60 - 14.00 [facility]; [facility], [facility] Work Phone: GFR/1.73 sq M.predicted among blacks MDRD (S/P/Bld) [Vol rate/Area] mL/min/{1.73_m2} Normal [facility]; [facility]. Work Phone: GFR/1.73 sq M.predicted among non-blacks MDRD (S/P/Bld) [Vol rate/Area] mL/min/{1.73_m2} Normal [facility] Health).; [facility], [facility]. Work Phone: Globulin (S) [Mass/Vol] 3.1 g/dL Normal 1.5 - 3.8 g/dL [facility]; [facility], [place], [facility]. Glucose [Mass/Vol] 93 mg/dL Normal 70 - 110 mg/dL [facility]; [facility], [place] [place] [facility], [facility]. Iron [Mass/Vol] 127 ug/dL Normal 37 - 170 ug/dL [facility]; [facility], [place] [place] [facility], [facility]. Iron binding capacity [Mass/Vol] 332 ug/dL Normal 250 - 500 ug/dL [facility]; [facility], [place] [place] [facility], [facility]. Iron saturation [Mass fraction] 38 % Normal [facility]; [facility], [place], [facility] Potassium [Moles/Vol] 4.1 mmol/L Normal 3.5 - 5.0 meq/L [facility]; [facility], [place], [facility] Protein [Mass/Vol] 7.2 g/dL Normal 6.0 - 8.5 g/dL [facility]; [facility], [place], [facility] Sodium [Moles/Vol] 141 mmol/L Normal 136 - 145 meq/L [facility]; [facility] T4 [Mass/Vol] 9.9 ug/dL Normal 4.8 - 13.9 ug/dL [facility]; [facility] T4/Triiodothyronine (T3) uptake index [Mass ratio] 1.11 {ratio} Normal 0.76 - 1.23 {ratio} [facility]; [facility] Triglyceride [Mass/Vol] 75 mg/dL Normal 3 - 149 mg/dL [facility]; [facility] TSH Qn 0.91 m[IU]/L Normal 0.36 - 3.74 {mcIU/mL} [facility]; [facility] Urea nitrogen [Mass/Vol] 13.0 mg/dL Normal 8.0 - 22.0 mg/dL [facility]; [facility] Urea nitrogen/Creatinine [Mass ratio] 19.7 mg/mg Normal 10.0 - 22.0 [facility]; [facility] Laboratory - Hematology and Cell countson 09-11-2015 Basophils/100 WBC (Bld) 0.9 % Normal 0.0 - 2.5 % [facility]; [facility] Eosinophils/100 WBC (Bld) 1.9 % Normal 0.0 - 6.0 % [facility]; [facility] Erythrocyte distribution width (RBC) [Ratio] 12.4 % Normal 11.5 - 15.5 % [facility]; [facility] Hematocrit (Bld) [Volume fraction] 41.1 % Normal 34.0 - 46.0 % [facility]; [facility] Hemoglobin (Bld) [Mass/Vol] 13.7 g/dL Normal 12.0 - 16.0 g/dL [facility], [facility].; [facility], [place], [facility]. Lymphocytes/100 WBC (Bld) 24.6 % Normal 20.0 - 40.0 % [facility]; [facility], [place], [facility]. MCH (RBC) [Entitic mass] 30.6 pg Normal 27.0 - 33.0 pg [facility], [facility].; [facility], [place], [facility] MCHC (RBC) [Mass/Vol] 33.3 g/dL Normal 32.0 - 36.0 g/dL [facility], [facility].; [facility], [place], [facility]. MCV (RBC) [Entitic vol] 91.9 fL Normal 80.0 - 99.0 fL [facility]; [facility], [place], [facility] Monocytes/100 WBC (Bld) 4.5 % Normal 2.0 - 13.0 % [facility], [facility].; [facility], [place], [facility]. Neutrophils (Bld) [#/Vol] 6.20 {10_3/mcL} Normal 1.90 - 7.90 {10_3/mcL} [facility], [facility].; [facility], [place], [facility]. Neutrophils/100 WBC (Bld) 68.1 % Normal 50.0 - 75.0 % [facility]; [facility], [place], [facility]. Platelet mean volume (Bld) [Entitic vol] 7.8 fL Normal 6.6 - 10.5 fL [facility], [facility].; [facility], [place], [facility]. Platelets (Bld) [#/Vol] 354 {10_3/mcL} Normal 150 - 450 {10_3/mcL} [facility], [facility].; [facility], [place], [facility]. RBC (Bld) [#/Vol] 4.47 {10_6/mcL} Normal 4.10 - 5.30 {10_6/mcL} [facility], [facility].; [facility], [place], [facility]. WBC (Bld) [#/Vol] 9.20 {10_3/mcL} Normal 4.50 - 10.80 {10_3/mcL} [facility]; [facility] Vital Signs Date Time Vital Sign Value Performing Clinician Adeline fuchs 04-26-2025 09:32-0400 Body height 160.[address] Jolly Peck DO Work Phone: [facility] 04-26-2025 09:32-0400 Body mass index (BMI) [Ratio] 21.6 kg/m2 Dr. Jolly Peck DO Work Phone: [facility] 04-26-2025 09:32-0400 Body weight 55.[address] Jolly Peck DO Work Phone: [facility] 04-26-2025 09:32-0400 Diastolic blood pressure 67 mm[Hg] Dr. Jolly Peck DO Work Phone: [facility] 04-26-2025 09:32-0400 Systolic blood pressure 106 mm[Hg] Dr. Jolly Peck DO Work Phone: [facility] 04-11-2025 08:46-0400 Body height 160.[address] Jolly Peck DO Work Phone: [facility] 04-11-2025 08:38-0400 Body mass index (BMI) [Ratio] 21.3 kg/m2 Dr. Jolly Peck DO Work Phone: [facility] 04-11-2025 08:38-0400 Body weight 54.[address] Jolly Peck DO Work Phone: [facility] 04-11-2025 08:38-0400 Diastolic blood pressure 69 mm[Hg] Dr. Jolly Peck DO Work Phone: [facility] 04-11-2025 08:38-0400 Systolic blood pressure 105 mm[Hg] Dr. Jolly Peck DO Work Phone: [facility] 01-23-2025 10:59-0400 Body height 162.56 cm MEJIA PELAYO MD Work Phone: [employer] [facility] [email or web address] 01-23-2025 10:59-0400 Body mass index (BMI) [Ratio] 21.28 kg/m2 MEJIA PELAYO MD Work Phone: [facility] [employer] [facility] [employer] [facility] [employer] 01-23-2025 10:59-0400 Body surface area Derived from formula 1.6 m2 MEJIA PELAYO MD Work Phone: [employer] [facility] [employer] [facility] [employer]. 01-23-2025 10:59-0400 Body weight 56.25 kg MEJIA PELAYO MD Work Phone: [employer] [facility] [employer] [facility] [employer]. 01-23-2025 10:59-0400 Diastolic blood pressure 56 mm[Hg] MEJIA PELAYO MD Work Phone: [employer]; [email or web address]. Comment on above: Patient Position: Sitting; Cuff Location : Left Arm; Cuff Size: Standard 01-23-2025 10:59-0400 Heart rate 56 /min MEJIA PELAYO MD Work Phone: [employer] [facility] [employer] [facility] [employer]. Comment on above: Pattern: Regular 01-23-2025 10:59-0400 Systolic blood pressure 100 mm[Hg] MEJIA PELAYO MD Work Phone: [employer] [facility] [employer] [facility] [employer]. Comment on above: Patient Position: Sitting; Cuff Location : Left Arm; Cuff Size: Standard 07-17-2024 14:46-0500 Body height 161.29 cm Tova Thakkar LPN [facility] [employer] [facility] [facility] [employer]. 07-17-2024 14:46-0500 Body mass index (BMI) [Ratio] 22.32 kg/m2 Tova Thakkar LPN [facility], Inc.; [facility], Inc[facility] 07-17-2024 14:46-0500 Body surface area Derived from formula 1.61 m2 Tova Thakkar LPN [facility], Inc.; [employer] [facility], Inc. 07-17-2024 14:46-0500 Body temperature 98.4 [degF] Tova Thakkar LPN [facility], Inc.; [employer] [facility], Inc. Comment on above: Method: Oral 07-17-2024 14:46-0500 Body weight 58.06 kg Tova Thakkar LPN [facility], Inc.; [employer] [facility] [employer] [facility], Inc[employer] 07-17-2024 14:46-0500 Diastolic blood pressure 66 mm[Hg] Tova Thakkar LPN [facility], Inc.; [employer] [facility] [employer] [facility], Inc. Comment on above: Patient Position: Sitting; Cuff Location : Left Arm; Cuff Size: Standard 07-17-2024 14:46-0500 Heart rate 58 /min Tova Yusuf [facility], Inc.; [facility], Inc[facility] Comment on above: Pattern: Regular 07-17-2024 14:46-0500 Inhaled oxygen concentration 21 % Tova Thakkar LPN [facility], Inc.; [employer] [facility], Inc. Comment on above: Room air 07-17-2024 14:46-0500 Respiratory rate 18 /min Tova Yusuf [facility], Inc.; [employer] [facility] [employer] [facility], Inc. Comment on above: Pattern: Unlabored 07-17-2024 14:46-0500 SaO2% (BldA) [Mass fraction] 99 % Tova Thakkar LPN [facility], Inc.; [employer] [facility] [employer] [facility], Inc. 07-17-2024 14:46-0500 Systolic blood pressure 101 mm[Hg] Tova Thakkar LPN [facility]; [facility], Inc[facility] Comment on above: Patient Position: Sitting; Cuff Location : Left Arm; Cuff Size: Standard 09-10-2023 10:46-0500 Body height 160.02 cm Katty Hudson RN [facility], Inc.; [facility] 09-10-2023 10:46-0500 Body mass index (BMI) [Ratio] 22.39 kg/m2 Katty Hudson RN [facility]; [facility]. 09-10-2023 10:46-0500 Body surface area Derived from formula 1.59 m2 Katty Hudson RN [facility]; [facility]. 09-10-2023 10:46-0500 Body weight 57.32 kg Katty Hudson RN [facility]; [facility]. 09-10-2023 10:46-0500 Diastolic blood pressure 79 mm[Hg] Katty Hudson RN [facility], [place], [facility]. Comment on above: Patient Position: Sitting; Cuff Location : Left Arm; Cuff Size: Large 09-10-2023 10:46-0500 Heart rate 68 /min Katty Hudson RN [facility], Inc.; [facility], [place], Inc. Comment on above: Pattern: Regular 09-10-2023 10:46-0500 Systolic blood pressure 118 mm[Hg] Katty Hudson RN [facility]; [facility], [place], Inc. Comment on above: Patient Position: Sitting; Cuff Location : Left Arm; Cuff Size: Large 05-19-2023 13:47-0400 Body height 160.02 cm [facility], [facility].; [facility], Inc[facility] 05-19-2023 13:47-0400 Body mass index (BMI) [Ratio] 22.5 kg/m2 Madiha Overholt [facility], mokono.; [facility] [employer] [facility], Inc[facility] 05-19-2023 13:47-0400 Body surface area Derived from formula 1.59 m2 [facility], Inc.; [facility], Inc[facility] 05-19-2023 13:47-0400 Body weight 57.61 kg [place] Overholt [facility], Inc.; [facility], Inc[facility] 05-19-2023 13:47-0400 Diastolic blood pressure 68 mm[Hg] Madiha Overholt [facility], Inc.; [facility] [employer] [facility], Inc. Comment on above: Patient Position: Sitting; Cuff Location : Left Arm; Cuff Size: Standard 05-19-2023 13:47-0400 Heart rate 75 /min [facility], Inc.; [facility] [employer] [facility], Inc. Comment on above: Pattern: Regular 05-19-2023 13:47-0400 Systolic blood pressure 104 mm[Hg] [place] Overholt [facility], Inc.; [facility] [employer] [facility], Inc. Comment on above: Patient Position: Sitting; Cuff Location : Left Arm; Cuff Size: Standard 01-20-2023 11:13040 Body height 162.56 cm [facility], Inc.; [facility] [employer] [facility], Inc[facility] 01-20-2023 11:13-0400 Body mass index (BMI) [Ratio] 21.63 kg/m2 [place] Overholt [facility], Inc.; [facility] [employer] [facility], Inc[facility] 01-20-2023 11:13-0400 Body surface area Derived from formula 1.61 m2 [facility], Inc.; [facility] [employer] [facility], Inc[facility] 01-20-2023 11:13-0400 Body weight 57.15 kg [facility], Inc.; [facility] [employer] [facility], Inc[facility] 01-20-2023 11:13-0400 Diastolic blood pressure 75 mm[Hg] Madiha Overholt [facility], Inc.; [facility], Inc. Comment on above: Patient Position: Sitting; Cuff Location : Left Arm; Cuff Size: Standard 01-20-2023 11:13040 Heart rate 72 /min Madiha Overholt [facility], Inc.; [facility], Inc[facility] Comment on above: Pattern: Regular 01-20-2023 11:13040 Systolic blood pressure 108 mm[Hg] Madiha Overholt [facility], Inc.; [facility], Inc. Comment on above: Patient Position: Sitting; Cuff Location : Left Arm; Cuff Size: Standard 11-19-2022 10:14040 Body height 162.56 cm Katty Hudson RN [facility], Inc.; [facility], [place], Inc. 11-19-2022 10:14040 Body mass index (BMI) [Ratio] 21.63 kg/m2 Katty Hudson RN [facility], Inc.; [facility], [place], Inc. 11-19-2022 10:14040 Body surface area Derived from formula 1.61 m2 Katty Hudson RN [facility], Inc.; [facility], [place], Inc. 11-19-2022 10:14040 Body weight 57.15 kg Katty Hudson RN [facility], Inc.; [facility], [place], Inc. 11-19-2022 10:14040 Diastolic blood pressure 77 mm[Hg] Katty Hudson RN [facility], [facility].; [facility], [place], Inc. Comment on above: Patient Position: Sitting; Cuff Location : Left Arm; Cuff Size: Large 11-19-2022 10:140400 Heart rate 68 /min Katty Hudson RN [facility], Inc.; [facility] [employer] [facility], [facility]. Comment on above: Pattern: Regular 11-19-2022 10:140400 Systolic blood pressure 116 mm[Hg] Katty Hudson RN [facility], [employer] [facility] [employer] [facility], Inc. Comment on above: Patient Position: Sitting; Cuff Location : Left Arm; Cuff Size: Large 07-08-2022 14:28-0500 Body height 162.56 cm Amie Mayorga RN [facility], Inc.; [facility], [place], Inc. 07-08-2022 14:28-0500 Body mass index (BMI) [Ratio] 20.77 kg/m2 Amie Mayorga RN [facility], [facility].; [facility], [place], Inc. 07-08-2022 14:28-0500 Body surface area Derived from formula 1.58 m2 Amie Mayorga RN [facility], [facility].; [facility], [place], Inc. 07-08-2022 14:28-0500 Body temperature 98.6 [degF] Amie Mayorga RN [facility], Inc.; [employer] [facility] [employer] [facility], Inc. Comment on above: Method: Oral 07-08-2022 14:28-0500 Body weight 54.89 kg Amie Mayorga RN [facility], Inc.; [facility], [place], Inc. 07-08-2022 14:28-0500 Diastolic blood pressure 71 mm[Hg] Amie Mayorga RN [facility], [facility].; [facility], [place], Inc. Comment on above: Patient Position: Sitting; Cuff Location : Left Arm; Cuff Size: Large 07-08-2022 14:28-0500 Heart rate 65 /min Amie Mayorga RN [facility], [facility].; [facility] [employer] [facility], [facility] Comment on above: Pattern: Regular 07-08-2022 14:28-0500 Inhaled oxygen concentration 21 % Amie Mayorga RN [facility], [facility].; [facility] [employer] [facility], [facility]. Comment on above: Room air 07-08-2022 14:28-0500 SaO2% (BldA) [Mass fraction] 97 % Amie Mayorga RN [facility], Inc.; [employer] [facility], Inc. 07-08-2022 14:28-0500 Systolic blood pressure 106 mm[Hg] [facility], [place] Comment on above: Patient Position: Sitting; Cuff Location : Left Arm; Cuff Size: Large 07-06-2022 08:48-0500 Diastolic blood pressure 69 mm[Hg] Maciel Helms MD Work Phone: [facility] 07-06-2022 08:48-0500 Heart rate 56 /min Maciel Helms MD Work Phone: [facility] 07-06-2022 08:48-0500 SaO2% (BldA) [Mass fraction] 98 % Maciel Helms MD Work Phone: [facility] 07-06-2022 08:48-0500 Systolic blood pressure 115 mm[Hg] Maciel Helms MD Work Phone: [facility] 05-27-2022 15:53-0400 Body height 162.56 cm Amie Mayorga RN [facility], [facility].; [facility], [place], [facility]. 05-27-2022 15:53-0400 Body mass index (BMI) [Ratio] 20.77 kg/m2 Amie Mayorga RN [facility], [facility].; [facility], [place], [facility]. 05-27-2022 15:53-0400 Body surface area Derived from formula 1.58 m2 Amie Mayorga RN [facility], [facility].; [facility], [place], [facility]. 05-27-2022 15:53-0400 Body weight 54.89 kg Amie Mayorga RN [facility], [facility].; [facility], [place], [facility]. 05-27-2022 15:53-0400 Diastolic blood pressure 68 mm[Hg] Amie Mayorga RN [facility], [facility].; [facility] [employer] [facility], [employer]. Comment on above: Patient Position: Sitting; Cuff Location : Left Arm; Cuff Size: Large 05-27-2022 15:53-0400 Heart rate 60 /min Amie Mayorga RN [facility], Inc[facility] [employer] [facility] Comment on above: Pattern: Regular 05-27-2022 15:53-0400 Systolic blood pressure 103 mm[Hg] [facility].; [facility], [place]. Comment on above: Patient Position: Sitting; Cuff Location : Left Arm; Cuff Size: Large 11-27-2021 16:06-0400 Body height 162.56 cm Count includes the [facility], [facility].; [facility], [facility]. 11-27-2021 16:06-0400 Body mass index (BMI) [Ratio] 20.6 kg/m2 Count includes the [facility], [facility].; [facility], [facility]. 11-27-2021 16:06-0400 Body surface area Derived from formula 1.57 m2 Count includes the [facility], [facility].; [facility], [facility]. 11-27-2021 16:06-0400 Body weight 54.43 kg Count includes the [facility] Hospital[facility].; [facility], [facility]. 11-27-2021 16:06-0400 Diastolic blood pressure 62 mm[Hg] Count includes the [facility].; [facility]. Comment on above: Patient Position: Sitting; Cuff Location : Left Arm; Cuff Size: Standard 11-27-2021 16:06-0400 Heart rate 58 /min Count includes the [facility].; [facility]. Comment on above: Pattern: Regular 11-27-2021 16:06-0400 Systolic blood pressure 96 mm[Hg] Count includes the [facility] Comment on above: Patient Position: Sitting; Cuff Location : Left Arm; Cuff Size: Standard 10-16-2020 13:31-0500 Body height 162.56 cm Abigail Pelayo RN [facility], [place], Inc[facility] 10-16-2020 13:31-0500 Body mass index (BMI) [Ratio] 20.08 kg/m2 Abigail Pelayo RN [facility], [facility].; [facility], [place], Inc[facility] 10-16-2020 13:31-0500 Body surface area Derived from formula 1.56 m2 Abigail Pelayo RN [facility], [facility].; [facility], [place], Inc[facility] 10-16-2020 13:31-0500 Body weight 53.07 kg Abigail Pelayo RN [facility], [facility].; [facility], [place], Inc[facility] 10-16-2020 13:31-0500 Diastolic blood pressure 77 mm[Hg] Abigail Pelayo RN [facility], [facility].; [facility], [place], Inc. Comment on above: Patient Position: Sitting; Cuff Location : Left Arm; Cuff Size: Standard 10-16-2020 13:31-0500 Heart rate 70 /min Abigail Pelayo RN [facility], [facility].; [facility], [place], Inc. Comment on above: Pattern: Regular 10-16-2020 13:31-0500 Systolic blood pressure 121 mm[Hg] Abigail Pelayo RN [facility], [facility].; [facility], [place], Inc. Comment on above: Patient Position: Sitting; Cuff Location : Left Arm; Cuff Size: Standard 04-17-2020 10:44-0400 Body height 162.56 cm Amie Mayorga RN [facility], Inc.; [facility], [place], Inc[facility] 04-17-2020 10:44-0400 Body mass index (BMI) [Ratio] 19.91 kg/m2 Amie Mayorga RN [facility], [facility].; [facility], [place], Inc[facility] 04-17-2020 10:44-0400 Body surface area Derived from formula 1.55 m2 Amie Mayorga RN [facility], Inc.; [facility], [place], Inc[facility] 04-17-2020 10:44-0400 Body weight 52.62 kg Amie Mayorga RN [facility], [facility].; [facility], [place], Inc[facility] 04-17-2020 10:44-0400 Diastolic blood pressure 71 mm[Hg] Amie Mayorga RN [facility], Inc.; [facility], [place] [place] [facility] [facility] Comment on above: Patient Position: Sitting; Cuff Location : Left Arm; Cuff Size: Large 04-17-2020 10:44-0400 Heart rate 53 /min Amie Mayorga RN [facility], [facility].; [facility], [place], [facility], mokono. Comment on above: Pattern: Regular 04-17-2020 10:44-0400 Systolic blood pressure 112 mm[Hg] Amie Mayorga RN [facility], [facility].; [facility], [place], mokono. Comment on above: Patient Position: Sitting; Cuff Location : Left Arm; Cuff Size: Large 10-02-2019 13:39-0500 Body height 162.56 cm LAURA BELL RN [facility], [facility].; [facility], [facility]. 10-02-2019 13:39-0500 Body mass index (BMI) [Ratio] 20.34 kg/m2 LAURA BELL RN [facility], [facility].; [facility], [facility]. 10-02-2019 13:39-0500 Body surface area Derived from formula 1.57 m2 LAURA BELL RN [facility], [facility].; [facility], [facility]. 10-02-2019 13:39-0500 Body weight 53.75 kg LAURA BELL RN [facility], [facility].; [facility], [facility]. 10-02-2019 13:39-0500 Diastolic blood pressure 75 mm[Hg] LAURA BELL RN [facility], [facility].; [facility], mokono. Comment on above: Patient Position: Sitting; Cuff Location : Left Arm; Cuff Size: Standard 10-02-2019 13:39-0500 Heart rate 65 /min LAURA BELL RN [facility], [facility].; [facility], m[place]ono. Comment on above: Pattern: Regular 10-02-2019 13:39-0500 Systolic blood pressure 115 mm[Hg] LAURA BELL RN [facility], [facility].; [facility]ITALHealthrageous [facility] [employer] [facility], [place]ono. Comment on above: Patient Position: Sitting; Cuff Location : Left Arm; Cuff Size: Standard 04-21-2019 14:21-0400 Body height 160.02 cm Karishma Yusuf [employer] [facility], Inc.; MeinProspektSHRINERS HOSPITALS FOR CHILDREN [facility] thesixtyone [facility] [employer] [facility], [employer] 04-21-2019 14:21-0400 Body mass index (BMI) [Ratio] 20.64 kg/m2 Karishma Yusuf [employer] [facility], Inc.; MeinProspektSHRINERS HOSPITALS FOR CHILDREN [facility] thesixtyone [facility] Eckert [employer] [facility], Inc. 04-21-2019 14:21-0400 Body surface area Derived from formula 1.54 m2 Karishma Nicolas Gaming Paramjit [employer] [facility], Inc.; MeinProspektSHRINERS HOSPITALS FOR CHIL[facility] thesixtyone [facility] [employer] [facility], Inc. 04-21-2019 14:21-0400 Body weight 52.84 kg Karishma Nicolas [employer] Paramjit [employer] [facility], Inc.; MeinProspektChestnut Hill Hospital Eckert [employer] [facility], Inc. 04-21-2019 14:21-0400 Diastolic blood pressure 70 mm[Hg] Karishma Nicolas Gaming Param[employer] [facility], Inc.; [facility] thesixtyone [facility] [employer] [facility], Inc. Comment on above: Patient Position: Sitting; Cuff Location : Left Arm; Cuff Size: Standard 04-21-2019 14:21-0400 Heart rate 77 /min Karishma Nicolas [employer] Paramjit [employer] [facility], Inc.; MeinProspektSHRINERS HOSPITALS FOR CHIL[facility] thesixtyone [facility] [employer] [facility], Inc. Comment on above: Pattern: Regular 04-21-2019 14:21-0400 Systolic blood pressure 107 mm[Hg] Karishma Nicolas [employer] Paramjit [employer] [facility], Inc.; MeinProspektSHRINERS HOSPITALS FOR CHIL[facility] thesixtyone [facility] [employer] [facility], Inc. Comment on above: Patient Position: Sitting; Cuff Location : Left Arm; Cuff Size: Standard 09-26-2018 13:47-0500 Body height 160.02 cm NEVA BARRIENTOS SAS ADMINISTRATOR-C Work Phone: [facility] HospitalHappyFactory [facility]okeAdHack Inc.; U4EA WirelessLake [facility] [employer], Inc. 09-26-2018 13:47-0500 Body mass index (BMI) [Ratio] 20.37 kg/m2 NEVA BARRIENTOS SAS ADMINISTRATOR-C Work Phone: [facility] HospitalHappyFactory [facility]emoka5.; U4EA WirelessLake Norman [facility] Eckert [employer], Inc. 09-26-2018 13:47-0500 Body surface area Derived from formula 1.53 m2 NEVA DELGADOTTER SAS ADMINISTRATOR-C Work Phone: [facility] [employer] [facility]anticokeFrontline GmbH; U4[employer] WirelessEK thesixtyone [facility] [employer] [facility]okeFrontline GmbH 09-26-2018 13:47-0500 Body weight 52.16 kg NEVA DELGADOTTER SAS ADMINISTRATOR-C Work Phone: [facility] [employer] [facility]anticokeFrontline GmbH; U4[employer] WirelessEK thesixtyone [facility] [employer] [facility]oka5. 09-26-2018 13:47-0500 Diastolic blood pressure 70 mm[Hg] NEVA DELGADOTTER SAS ADMINISTRATOR-C Work Phone: [facility] [employer] [facility]anticokeFrontline GmbH; [employer] WirelessEK thesixtyone [facility] [employer] [facility]anticokeFrontline GmbH Comment on above: Patient Position: Sitting; Cuff Location : Left Arm; Cuff Size: Standard 09-26-2018 13:47-0500 Heart rate 69 /min NEVA DELGADOTTER SAS ADMINISTRATOR-C Work Phone: [facility] [employer]; [employer] WirelessEK thesixtyone [facility] Eckert servtag Comment on above: Pattern: Regular 09-26-2018 13:47-0500 Systolic blood pressure 103 mm[Hg] NEVA DELGADOTTER SAS ADMINISTRATOR-C Work Phone: [facility] HospitalHappyFactory [facility]anticokeFrontline GmbH; [employer] WirelessEK thesixtyone [facility] Eckert servtag Comment on above: Patient Position: Sitting; Cuff Location : Left Arm; Cuff Size: Standard 07-02-2017 14:090500 Body height 160.02 cm Abigail Pelayo RN [facility] [employer] [facility]emoka5.; MeinProspektArizona State Hospital Locaweb [facility]emoka5. 07-02-2017 14:09-0500 Body mass index (BMI) [Ratio] 20.19 kg/m2 Abigail Pelayo RN [facility] [employer] [facility]emoka5.; MeinProspektArizona State Hospital Locaweb [facility]emoka5. 07-02-2017 14:09-0500 Body surface area Derived from formula 1.52 m2 Abigail Pelayo RN [facility] Eckert [employer] [facility]oka5.; MeinProspektArizona State Hospital L[employer] [facility]emoka5. 07-02-2017 14:09-0500 Body temperature 99 [degF] Abigail Pelayo RN [facility] HospitalAdHack Inc.; MeinProspektHCA Houston Healthcare Clear Lakemoka5. Comment on above: Method: Oral 07-02-2017 14:0500 Body weight 51.71 kg Abigail Pelayo RN [facility], Inc.; MeinProspektSHRINERS HOSPITALS FOR CHIL[facility] thesixtyone [facility] [employer] [facility], Inc. 07-02-2017 14:0500 Diastolic blood pressure 60 mm[Hg] Abigail Pelayo RN [facility] HospitalAdHack Inc.; MeinProspektAri[facility] State Hospital [employer] [facility], Inc. Comment on above: Patient Position: Sitting; Cuff Location : Left Arm; Cuff Size: Standard 07-02-2017 14:0500 Heart rate 61 /min A[facility]ail [facility].; [facility] [employer] [facility]5. Comment on above: Pattern: Regular 07-02-2017 14:09-0500 Systolic blood pressure 94 mm[Hg] Abigail Pelayo RN [facility] HospitalAdHack Inc.; [facility] [employer] [facility], Inc. Comment on above: Patient Position: Sitting; Cuff Location : Left Arm; Cuff Size: Standard 07-07-2016 14:0500 Body height 160.02 cm MICHAEL [facility] [employer] [facility]okemoka5.; MeinProspektArizona State Hospital [employer] [facility], Inc. 07-07-2016 14:26-0500 Body mass index (BMI) [Ratio] 20.02 kg/m2 [facility].; [facility] [employer] [facility], Inc. 07-07-2016 14:260500 Body surface area Derived from formula 1.52 m2 MICHAEL [facility] [employer] [facility]emoka5.; MeinProspektSHRINERS HOSPITALS FOR [facility] thesixtyone [facility] [employer] [facility], Inc. 07-07-2016 14:-0500 Body temperature 98.5 [degF] MICHAEL [facility] [employer] [facility]emoka5.; MeinProspektSHRINERS HOSPITALS FOR CH[facility] thesixtyone [facility] [employer] [facility], mokono. Comment on above: Method: Oral 07-07-2016 14:0500 Body weight 51.26 kg MICHAEL [facility] [employer] [facility]okemoka5.; MeinProspektArizona State Hospital Locaweb [facility] NanticokeAdHack Inc. 07-07-2016 14:26-0500 Diastolic blood pressure 72 mm[Hg] MICHAEL [facility] [employer] [facility]okeAdHack Inc.; MeinProspektAri[facility] State Hospital [employer] [facility], Inc. Comment on above: Patient Position: Sitting; Cuff Location : Left Arm; Cuff Size: Standard 07-07-2016 14:26-0500 Heart rate 65 /min MICHAEL [facility] Eckert [employer] [facility], Inc.; MeinProspektAri[facility] State Hospital [employer] [facility], Inc. Comment on above: Pattern: Regular 07-07-2016 14:26-0500 Systolic blood pressure 108 mm[Hg] MICHAEL [facility] [employer] [facility]anticokeAdHack Inc.; MeinProspektAri[facility] State Hospital [employer] [facility], Inc. Comment on above: Patient Position: Sitting; Cuff Location : Left Arm; Cuff Size: Standard 09-11-2015 13:07-0500 Body height 160.02 cm Amie Mayorga RN [facility] Eckert [employer] [facility], mokono.; [employer] [facility] [employer] [facility], Inc. 09-11-2015 13:07-0500 Body mass index (BMI) [Ratio] 19.31 kg/m2 Amie Mayorga RN [facility] [employer] [facility], mokono.; [employer] [facility] [employer] [facility], Inc. 09-11-2015 13:07-0500 Body surface area Derived from formula 1.49 m2 Amie Mayorga RN [facility] Eckert [employer] [facility], mokono.; [employer] [facility] [employer] [facility], Inc. 09-11-2015 13:07-0500 Body temperature 98 [degF] Amie Mayorga RN [facility] [employer] [facility], mokono.; Birdi [facility] Eckert [employer] [facility], Inc. Comment on above: Method: Oral 09-11-2015 13:07-0500 Body weight 49.44 kg Amie Mayorga RN [facility] Eckert [employer] [facility], mokono.; Plexxi [facility] Eckert [employer] [facility], Inc. 09-11-2015 13:07-0500 Diastolic blood pressure 63 mm[Hg] Amie Mayorga RN [facility] Eckert [employer] [facility], mokono.; [employer] [facility], Inc. Comment on above: Patient Position: Sitting; Cuff Location : Left Arm; Cuff Size: Standard 09-11-2015 13:07-0500 Heart rate 71 /min Amie Mayorga RN [facility] Eckert [employer] [facility], Inc.; Birdi [facility] [employer] [facility], Inc. Comment on above: Pattern: Regular 09-11-2015 13:07-0500 Systolic blood pressure 104 mm[Hg] [facility].; [facility] [employer] [facility], mokono. Comment on above: Patient Position: Sitting; Cuff Location : Left Arm; Cuff Size: Standard 10-05-2011 11:12-0500 Body height 160.02 cm [facility].; [facility], [place], Inc. 10-05-2011 11:12-0500 Body mass index (BMI) [Ratio] 20.55 kg/m2 [facility]Ad[facility].; [facility], [place], [facility]. 10-05-2011 11:12-0500 Body surface area Derived from formula 1.53 m2 [facility]AdHack [facility].; [facility], [place], mokono. 10-05-2011 11:12-0500 Body temperature 98.3 [degF] [facility] [employer] [facility]emoka5.; [facility] [employer] [facility], mokono. Comment on above: Method: Oral 10-05-2011 11:12-0500 Body weight 52.62 kg [facility] [employer] [facility]okemoka5.; [facility] [employer] [facility], [facility]. 10-05-2011 11:12-0500 Diastolic blood pressure 65 mm[Hg] [facility] [employer] [facility]emoka5.; [facility] [employer] [facility], mokono. Comment on above: Patient Position: Sitting; Cuff Location : Left Arm; Cuff Size: Standard 10-05-2011 11:12-0500 Heart rate 63 /min [facility] [employer] [facility]okemoka5.; Birdi [facility] [employer] [facility], mokono. Comment on above: Pattern: Regular 10-05-2011 11:12-0500 Systolic blood pressure 99 mm[Hg] [facility] [employer] [facility]emoka5.; [facility] [employer] [facility], mokono. Comment on above: Patient Position: Sitting; Cuff Location : Left Arm; Cuff Size: Standard Encounters Encounter Date Encounter Type Care Provider Facility Start: 05-22-2025 End: 05-22-2025 [facility] Start: 05-21-2025 End: 05-21-2025 ambulatory PAUL STANTON MD Facility:A Start: 05-16-2025 End: 05-16-2025 Procedure Order MEJIA PELAYO MD Work Phone: [facility] Start: 05-15-2025 End: 05-16-2025 Historical Summary MEJIA PELAYO MD Work Phone: [facility] Start: 05-15-2025 Review MEJIA Merida MD Work Phone: [facility] Start: 04-26-2025 End: 04-26-[address] Jolly Peck DO Work Phone: -Laboratory Specimen Start: 04-26-2025 End: 04-26-[address] Jolly Peck DO -Laboratory Specimen Work Phone: Start: 04-26-2025 End: 04-26-[address] Jolly Peck DO -[facility] Work Phone: Start: 04-26-2025 End: 04-26-[address] Jolly Peck DO Work Phone: -[facility] Start: 04-26-2025 End: 04-26-2025 ambulatory Jolly Peck Facility:[facility] Start: 04-18-2025 End: 04-18-[address] Jolly Peck DO Work Phone: -Ultrasound [facility] Start: 04-18-2025 End: 04-18-[address] Jolly Peck DO -Ultrasound [facility] Work Phone: Start: 04-18-2025 End: 04-18-2025 ambulatory Jolly Peck Facility:[facility] Start: 04-11-2025 End: 04-11-[address] Jolly Peck DO Work Phone: -[facility] Start: 04-11-2025 End: 04-11-[address] Jolly Peck DO -[facility] Work Phone: Start: 04-11-2025 End: 04-11-2025 ambulatory Jolly Peck Facility:[facility] Start: 01-23-2025 End: 01-23-2025 Patient encounter procedure MEJIA PELAYO MD Work Phone: [employer] Start: 11-21-2024 End: 11-21-2024 ambulatory PAUL STANTON MD Facility:A Start: 07-17-2024 End: 07-20-2024 Office outpatient visit 10 minutes MEJIA PELAYO MD Work Phone: [employer] Start: 07-17-2024 Review MEJIA Merida MD Work Phone: [employer] Start: 07-17-2024 Review MEJIA Merida MD Work Phone: [employer] Start: 09-10-2023 End: 09-10-2023 Office outpatient visit 10 minutes NEVA BARRIENTOS SAS ADMINISTRATOR-C Work Phone: [employer] Start: 06-23-2023 End: 06-23-2023 Follow-up encounter NEVA BARRIENTOS SAS ADMINISTRATOR-C Work Phone: [employer] Start: 06-14-2023 End: 06-21-2023 Lab Only NEVA BARRIENTOS SAS ADMINISTRATOR-C Work Phone: [employer] Start: 05-20-2023 End: 05-20-2023 Historical Summary NEVA BARRIENTOS SAS ADMINISTRATOR-C Work Phone: [employer] Start: 05-19-2023 End: 05-19-2023 Office outpatient visit 10 minutes NEVA FLOYD SAS ADMINISTRATOR-C Work Phone: [employer] Start: 02-11-2023 End: 02-11-2023 Transition of Care NEVA DELGADORAYNE SAS ADMINISTRATOR-C Work Phone: [employer] Start: 02-05-2023 End: 02-05-2023 Results Review NEVA SACHACASEYRAYNE SAS ADMINISTRATOR-C Work Phone: [employer] Start: 01-28-2023 End: 01-28-2023 Follow-up encounter NEAV DELGADORAYNE SAS ADMINISTRATOR-C Work Phone: [employer] Start: 01-28-2023 End: 01-28-2023 Procedure Order NEVA FLOYD SAS ADMINISTRATOR-C Work Phone: [employer] Start: 01-21-2023 End: 01-21-2023 Results Review NEVA KILEYNANCYRAYNE SAS ADMINISTRATOR-C Work Phone: [employer] Start: 01-20-2023 End: 01-25-2023 ambulatory NEVA BARRIENTOS CARDROOM WORKER-TRANSMITTER ENGINEER IN CHARGE Facility:A Start: 01-20-2023 End: 01-20-2023 Periodic preventive med est patient 18-39 yrs NEVA BARRIENTOS SAS ADMINISTRATOR-C Work Phone: [employer] Start: 01-20-2023 End: 01-20-2023 Physical examination NEVA BARRIENTOS SAS ADMINISTRATOR-C Work Phone: [employer]; [employer] Start: 11-19-2022 End: 11-19-2022 Office outpatient visit 10 minutes NEVA HOFSTETTER SAS ADMINISTRATOR-C Work Phone: [employer] Start: 07-22-2022 End: 07-22-2022 Medication Refill/Order NEVA DELGADOTTER SAS ADMINISTRATOR-C Work Phone: [facility] [employer] Start: 07-14-2022 End: 07-14-2022 Follow-up encounter NEVA DELGADONOEER SAS ADMINISTRATOR-C Work Phone: [facility] [employer] Start: 07-08-2022 End: 07-08-2022 Office outpatient visit 10 minutes NEVA SACHATENOEER SAS ADMINISTRATOR-C Work Phone: [employer] 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 Start: 05-11-2022 End: 05-11-2022 Medication Refill/Order NEVA DELGADONOEER SAS ADMINISTRATOR-C Work Phone: [employer] Start: 01-05-2022 End: 01-05-2022 Patient encounter procedure [facility]-Laboratory Start: 12-25-2021 End: 12-25-2021 Results Review NEVA GONCALVESTETTER SAS ADMINISTRATOR-C Work Phone: [employer] Start: 12-17-2021 End: 12-17-2021 [facility] Start: 11-27-2021 End: 11-27-2021 Office outpatient visit 10 minutes NEVA HOFSTETTER SAS ADMINISTRATOR-C Work Phone: [facility] [employer] [facility]. Start: 07-04-2021 End: 07-04-2021 Medication Refill/Order NEVA DLEGADONOEER SAS ADMINISTRATOR-C Work Phone: [facility] Start: 03-26-2021 End: 03-26-2021 Medication Refill/Order NEVA HONANCYTTER SAS ADMINISTRATOR-C Work Phone: [facility] [employer] [facility]. Start: 10-16-2020 End: 10-16-2020 Office outpatient visit 10 minutes NEVA DELGADONOEER SAS ADMINISTRATOR-C Work Phone: [facility], [place] Start: 05-09-2020 End: 05-09-2020 Follow-up encounter NEVA DELGADOTTER SAS ADMINISTRATOR-C Work Phone: [facility] Start: 04-17-2020 End: 04-17-2020 Office outpatient visit 10 minutes NEVA DELGADOTTER SAS ADMINISTRATOR-C Work Phone: [facility] [employer] [facility]. Start: 10-02-2019 End: 10-02-2019 Office outpatient visit 10 minutes NEVA DELGADOTTER SAS ADMINISTRATOR-C Work Phone: [facility] [employer] [facility]anticokeFrontline [employer] Start: 07-14-2019 End: 07-14-2019 Transition of Care NEVA DELGADOTTER SAS ADMINISTRATOR-C Work Phone: [facility] [employer] [facility]. Start: 06-07-2019 End: 06-07-2019 Procedure Order NEVA GONCALVESTETTER SAS ADMINISTRATOR-C Work Phone: [facility] [employer] [facility]. Start: 05-01-2019 End: 05-01-2019 Results Review NEVA HOFSTETTER SAS ADMINISTRATOR-C Work Phone: [place] thesixtyone [facility] [employer] [facility]oka5. Start: 04-29-2019 End: 04-29-2019 Results Review NEVA BARRIENTOS SAS ADMINISTRATOR-C Work Phone: [facility] Start: 04-21-2019 End: 04-21-2019 Patient encounter status NEVA BARRIENTOS SAS ADMINISTRATOR-C Work Phone: [facility]; [facility] servtag Start: 04-21-2019 End: 04-21-2019 Periodic preventive med est patient 18-39 yrs NEVA BARRIENTOS SAS ADMINISTRATOR-C Work Phone: [facility] [employer] Start: 01-23-2019 End: 01-23-2019 Results Review NEVA BARRIENTOS SAS ADMINISTRATOR-C Work Phone: [facility] servtag Start: 01-17-2019 End: 01-17-2019 Historical Summary NEVA BARRIENTOS SAS ADMINISTRATOR-C Work Phone: [facility] servtag Start: 10-06-2018 End: 10-06-2018 Transition of Care NEVA BARRIENTOS SAS ADMINISTRATOR-C Work Phone: [facility] [employer]tag Start: 10-05-2018 End: 10-05-2018 Patient encounter procedure NEVA BARRIENTOS SAS ADMINISTRATOR-C Work Phone: [facility] [employer]. Start: 09-27-2018 End: 09-27-2018 Nutrition therapy NEVA BARRIENTOS SAS ADMINISTRATOR-C Work Phone: [facility] [employer]tag Start: 09-26-2018 End: 09-26-2018 Office outpatient visit 15 minutes NEVA BARRIENTOS SAS ADMINISTRATOR-C Work Phone: [facility] [employer] Start: 07-02-2017 End: 07-02-2017 Office outpatient visit 15 minutes NEVA BARRIENTOS SAS ADMINISTRATOR-C Work Phone: [facility] [employer] [facility] Start: 07-08-2016 End: 07-08-2016 Results Review NEVA BARRIENTOS SAS ADMINISTRATOR-C Work Phone: [facility] Start: 07-07-2016 End: 07-07-2016 Office outpatient visit 10 minutes NEVA BARRIENTOS SAS ADMINISTRATOR-C Work Phone: [facility] Start: 09-12-2015 End: 09-12-2015 Nutrition therapy NEVA BARRIENTOS SAS ADMINISTRATOR-C Work Phone: [facility] [employer] [facility] [employer] Start: 09-11-2015 End: 09-11-2015 Office outpatient visit 15 minutes NEVA BARRIENTOS SAS ADMINISTRATOR-C Work Phone: [facility] [employer] [facility] Start: 10-05-2011 End: 10-05-2011 Patient encounter procedure NEVA BARRIENTOS SAS ADMINISTRATOR-C Work Phone: [facility] [employer] [facility] Start: 03-04-2011 End: 03-04-2011 Historical Summary NEVA BARRIENTOS SAS ADMINISTRATOR-C Work Phone: [facility] [employer] [facility]Front[employer] Start: 05-22-2010 End: 05-22-2010 Historical Summary NEVA BARRIENTOS SAS ADMINISTRATOR-C Work Phone: [facility] [place] Patient encounter status NEVA BARRIENTOS SAS ADMINISTRATOR-C Work Phone: [facility] [employer] [facility]5.; [employer] thesixtyone [facility] HospitalHappyFactory [facility]emoka5 Patient encounter status TONIO PELAYO MD Work Phone: [facility] [employer] [facility]5.; [facility] [employer] [facility]oka5 Physical examination MEJIA PELAYO MD Work Phone: [facility] [employer] [facility]okeFront[employer]; [facility] [employer] [facility], Inc. Procedures Date Procedure Procedure Detail Performing Clinician Start: 04-26-2025 Liquid based cervica l cytology screening Dr. Jolly Peck DO Work Phone: Comment on above: NEGATIVE FOR INTRAEP ITHELIAL LESION OR MALIGNANCY.THIS SPECIMEN WAS RESCREENED PART OF OUR CODING COORDINATOR PROGRAM. This liquid based Th inPrep(R) pap test was screened withthe use of an image guided system. Start: 04-18-[address] Jolly Peck DO Work Phone: Start: 04-11-2025 Fol[address]le stimulating hormone measurement Dr. Jolly Peck DO Work Phone: Comment on above: FEMALE:Follicular: 1 .4 - 18.1 mIU/mLMidcycle: 3.4 - 33.4 mIU/mLLuteal: 1.5 - 9.1 mIU/mLPost Menopause: 23.0 - 116.3 mIU/mLMALE: 1.4 - 18.1 mIU/mL Start: 04-11-[address] Veda Peck DO Work Phone: Start: 04-11-2025 Screening mammography D eliseo Peck DO Work Phone: Start: 01-23-2025 End: 01-23-2025 Dischrg meds reconciled w/current med list MEJIA PELAYO MD Work Phone: Start: 07-17-2024 End: 07-17-2024 Dischrg meds reconciled w/current med list MEJIA PELAYO MD Work Phone: Start: 05-19-2023 End: 05-19-2023 Dischrg meds reconciled w/current med list NEVA FUENTES-C Work Phone: Start: 02-03-2023 End: 02-03-2023 Ct abdomen & pelvis w/contrast material NEVA FUENTES-C Work Phone: Comment on above: eval nutcracker Start: 02-03-2023 End: 02-03-2023 Us breast uni real time with image complete NEVA BARRIENTOS SAS ADMINISTRATOR-C Work Phone: Comment on above: bilateral Start: 01-20-2023 End: 01-20-2023 Dischrg meds reconciled w/current med list NEVA BARRIENTOS SAS ADMINISTRATOR-C Work Phone: Start: 01-20-2023 End: 01-20-2023 Obtaining screen pap smear NEVA CABALLERO SAS ADMINISTRATOR-C Work Phone: Start: 07-08-2022 End: 07-08-2022 Dischrg meds reconciled w/current med list NEVA BARRIENTOS SAS ADMINISTRATOR-C Work Phone: Start: 06-23-2022 End: 06-23-2022 MALS surgery R PAUL PEREZ MD Work Phone: Start: 05-27-2022 End: 05-27-2022 Dischrg meds reconciled w/current med list NEVA SKAGGSER SAS ADMINISTRATOR-C Work Phone: Start: 11-27-2021 End: 11-27-2021 Dischrg meds reconciled w/current med list NEVA SKAGGSER SAS ADMINISTRATOR-C Work Phone: Start: 06-18-2021 Antibody screen Start: 03-26-2021 End: 03-26-2021 Collj & interpj physiol data min 30 min ea 30 d LAURA BELL RN Start: 10-16-2020 End: 10-16-2020 Dischrg meds reconciled w/current med list NEVA BARRIENTOS SAS ADMINISTRATOR-C Work Phone: Start: 10-16-2020 End: 10-16-2020 Urinary Incontinence Madiha Overholt ADVERTISING PRODUCTION MANAGER Comment on above: Abnormal. Only when coughs or sneezes. Start: 04-17-2020 End: 04-17-2020 Dischrg meds reconciled w/current med list NEVA SKAGGSER SAS ADMINISTRATOR-C Work Phone: Start: 04-17-2020 End: 05-09-2020 Us breast uni real time with image complete NEVA SKAGGSERNST SAS ADMINISTRATOR-C Work Phone: Comment on above: screening, bilateral Start: 10-02-2019 End: 10-02-2019 Dischrg meds reconciled w/current med list NEVA SKAGGSERNST SAS ADMINISTRATOR-C Work Phone: Start: 08-04-2019 End: 08-04-2019 Endoscopy Madiha Correa CMA Comment on above: [facility] Start: 08-04-2019 End: 08-04-2019 Screening colonoscopy Madiha Correa CMA Comment on above: [facility] Start: 04-21-2019 End: 05-01-2019 Us transvaginal NEVA SKAGGSERNST SAS ADMINISTRATOR-C Work Phone: Comment on above: hx thyroid cancer, p lease do both breasts Start: 04-21-2019 End: 05-01-2019 Ct abdomen & pelvis w/o contrst 1/> body re NEVA SKAGGSERNST SAS ADMINISTRATOR-C Work Phone: Comment on above: hx thyroid cancer, n ow having abdominal pain Start: 04-21-2019 End: 04-21-2019 Obtaining screen pap smear NEVA Sanchez JESICA ADA SAS ADMINISTRATOR-C Work Phone: Start: 01-12-2019 End: 01-12-2019 L thyroid lobectomy Madiha Correa ADVERTISING PRODUCTION MANAGER Comment on above: Dr Alegre, ENT Start: 12-08-2018 End: 12-08-2018 rt thyroid lobectomy Madiha Correa CMA 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. Start: 27-Jul-2025 09:15-05:00 MD MEJIA PELAYO Appointment Request [facility] [place] Start: 05-16-2025 Ct abdomen & pelvis w/contrast material CT OF ABDOMEN AND PELVIS WITH INTRAVENOUS CONTRAST ([id number]) Start: 16-May-2025 Intent Comments: MALS Protocol [facility] [place] Comment on above: MALS Protocol Start: 04-11-2025 Estradiol (E2) [Mass/volume] in Serum or Plasma [facility] Start: 04-11-2025 Follitropin and Lutr opin panel [Units/volume] - Serum or Plasma [facility] Start: 04-11-2025 Procedure [facility] Start: 04-11-2025 Screening mammography SCRN PORTIA M (CAD)W/JOSUÉ BILAT [facility] Start: 01-12-2025 Patient encounter procedure Medical; ANXIETY - [facility] Start: 12-Jan-2025 09:30-04:00 MD MEJIA PELAYO Appointment Request [facility] [place] Start: 01-20-2023 Ct abdomen w/contras t material CT OF ABDOMEN WITH INTRAVENOUS CONTRAST ([id number]) Start: 20-Jan-2023 Intent Comments: concern for worsening symptoms. also having pelvic/back pain [facility] Comment on above: concern for worsenin g symptoms. also having pelvic/back pain Start: 01-20-2023 Us pelvic nonobstetr ic real-time image complete US PELVIS, COMPLETE ([id number]) Start: 20-Jan-2023 [facility] Start: 04-23-2022 Influenza vaccination INFLUENZA (#1) [facility] Start: 12-29-2021 Assay of homocysteine E [facility] [employer] [facility] Start: 11-27-2021 Mthfr gene analysis common variants [facility] Start: 08-23-2021 DEPRESSION ASSESSMENT DEPRESSION ASS ESSMENT [facility] Start: 06-07-2019 Ct angio abd&plvis cntrst mtrl w/wo cntrst img CTA CHEST, ABDOMEN, AND PELVIS WITHOUT THEN WITH CONTRAST ([id number]) Start: 07-Jun-2019 Intent Comments: cta chest/abd/pel (nongated) wo/w ivcon [employer]; [employer] Comment on above: cta chest/abd/pel (n ongated) wo/w ivcon Start: 06-07-2019 Dup-scan artl rsahad abdl/pel/scrot&/rpr orgn lmt US DOPPLER SUPERIOR MESENTERIC ARTERY ([id number]) Start: 07-Jun-2019 Intent Comments: US mesenteric artery cmplt: please assess for elevated velocities of celiac artery due to median arcuate ligament syndrome [employer]; [employer] Comment on above: US mesenteric artery cmplt: please assess for elevated velocities of celiac artery due to median arcuate ligament syndrome Start: 06-07-2019 Gastric emptying sarita ging study NM RADIONUCLIDE STUDY SOLID PHASE GASTRIC EMPTYING ([id number]) Start: 07-Jun-2019 Intent [employer]; [email or web address] Start: 09-26-2018 Patient Education [employer]; [email or web address] Start: 2015 HPV TESTING HPV TESTING [facility] Start: 2006 PAP TESTING PAP TESTING [facility] Start: 02-01-2004 Urine microalbumin profile DTAP,TDAP,TD (1 - Tdap) [facility] Start: 2003 ANNUAL PCP TEAM LUBRICATION WORKER KAREN DISEASE VISIT ANNUAL PCP TEAM CHRONIC DISEASE VISIT [facility] Start: 2003 HEPATITIS C SCREENING HEPATITIS C SC MICKIE [facility] Start: 2003 HIV SCREENING HIV SCREENING [facility] Start: 1985 COVID-19 VACCINE (#1) COVID-19 VACCI NE (#1) [facility] Start: 1985 HEPATITIS B (1 of 3 - 3-dose series) HEPATITIS B (1 of 3 - 3-dose series) [facility] Follicle stimulating hormone measurement [facility] Liquid based cervica l cytology screening [facility] Lutropin [Units/volu me] in Serum or Plasma [facility] US Pelvis transvaginal [facility] Payers Date Payer Category Payer Self-pay [id number] 2023 Unknown [id number] 2020 Unknown [id number] 1985 Unknown [id number] 2.16.8 [id number] 1985 Unknown [id number] 2.16.8 [id number] 1985 Unknown [id number] 2.16. [id number] 1985 Unknown [id number] 2.16.8 [id number] Unknown [id number] 2.16.8 [id number] Unknown [id number] 2.16.8 [id number] Unknown [id number] 2.16.8 [id number] Unknown [id number] 2.16.8 [id number] Unknown [id number] 2.16.8 [id number] Social History Date Type Detail Facility [facility] if ever smoked [facility] Work Phone: Start: 1985 Sex Assigned At Female W [facility] Start: 07-06-2022 End: 04-13-2025 Tobacco smoking status SDIS Never smoked tobacco [facility] Start: 07-06-2022 Tobacco use and exposure Smokeless tobacco non-user [facility] Start: 07-06-2022 Alcohol intake Lifetime non-d lima (finding) [facility] Start: 11-05-2020 History SDOH Alcohol Frequency 1 [facility] Start: 1985 Sex Assigned At Not on file [facility] Start: 06-26-2022 End: 07-06-2022 Exposure to SARS-CoV-2 (event) Not sure [facility] Alcohol Use: Alcohol Use: ; N o [facility]. [facility] [place] Tobacco use: Tobacco use: ; N ever smoker. [facility] [place] Sex Female [facility] Clinical Notes 04-10-2021 to 04-18-2025 Note Date & Type Note Facility 04-18-2025 Radiology Diagnostic study note [facility] Imaging Services [address] [place] [address] Transvaginal Non- MR#: [id number] Acct: [id number] Name: JESSA HERNANDEZ Rep #: [id number] : 1985 F 40 From: Will Amin MD PCP: Mejia Pelayo MD Status: REG CLI Study:Transvaginal Non- Date of Exam: 04/18/25 Exam# [id number] Ordering Dr: Jolly Wallace DO PROCEDURE: TRANSVAGINAL NON- 04/18/2025 REASON FOR EXAM: PELVIC CONGESTION SYNDROM, MENORRHAGIA TECHNIQUE: TRANSVAGINAL NON- COMPARISON: None FINDINGS: LMP: April 10, 2025. Measurements: Uterus: 10.4 cm x 8.5 cm x 6.9 cm with a volume of 316.2 mL Endometrial Thickness: 11 mm. It is hyperechoic. Right Ovary: 3.2 cm x 2.2 cm x 2.5 cm with a volume of 9.04 mL. Left Ovary: 3.1 cm x 2.4 cm x 1.1 cm with a volume of 4.1 mL. Uterus: There are 2 uterine fibroids. The larger measures 3.5 cm 4.2 cm 3.1 cm. Endometrium: Endometrium measures 11 mm. This may be related to the patient's menstrual cycle. There is a 4 mm x 2 mm x 3 mm echogenic nodule with vascularity within the endometrium. This may represent a polyp. Right ovary: Follicles are seen within the ovary. Left ovary: Follicles are seen within the ovary. Other: No large pelvic mass identified. US/Transvaginal Non- IMPRESSION: Fibroid uterus. Questionable endometrial polyp. Ovarian follicles. Reading Location: [id number] CC: Dr. Jolly Peck DO; Mejia Pelayo MD ~ Frothing Machine Operator: Signed [facility] 04-11-2025 Evaluation note Diagnosis Onset Date Resolution Anxiety acute April 11 8:36am Female climacteric state acute April 11 8:36am May-Thurner syndrome acute 2024 8:36am Nutcracker phenomenon of renal vein acute April 11 8:36am Pelvic congestion syndrome acute April 11 8:36am Thyroid cancer acute March 8:36am Vascular disease of abdomen acute April 11 8:36am [facility] Work Phone: 1(478) 505-888608-20-2025 Evaluation note* Diagnosis Onset Date Resolution Status Admit Date Anxiety acute April 11 8:36am Female climacteric state acute April 11, 2025 8:36am May-Thurner syndrome acute 2024 8:36am Nutcracker phenomenon of renal vein acute April 11 8:36am Pelvic congestion syndrome acute April 11, 2025 8:36am Thyroid cancer acute March 8:36am Vascular disease of abdomen acute April 11, 2025 8:36am Anxiety acute April 26, 2025 9:29am Endometrial polyp acute 2024 9:29am May-Thurner syndrome acute Apr 9:29am Menorrhagia acute April 9:29am Nutcracker phenomenon of renal vein acute April 26 9:29am Pelvic congestion syndrome acute April 26, 2025 9:29am Thyroid cancer acute April 26, 2025 9:29am Vascular disease of abdomen acute April 26, 2025 9:29am [facility] Work Phone: 1(663) 725-102808-20-[address] [facility] [address], [address] [place] [address] OFFICE VISIT Date of Service: 04/11/25 MR#: [id number] Acct: [id number] Name: JESSA HERNANDEZ Rep #: [id number] : 1985 Provider: Dr. 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 Required: No Is patient in pain?: No Allergies sulfamethoxazole (From Bactrim) Allergy (Mild, Verified 04/11/25 08:45) Rash trimethoprim (From Bactrim) Allergy (Mild, Verified 04/11/25 08:45) Rash Medications ?Medication ?Instructions ?Recorded ?Confirmed ?Type B-complex with vitamin C 1 cap PO QDAY 04/11/2504/11 History cholecalciferol (vitamin D3) 25 25 mcg PO QDAY 5 04/11/25 History mcg (1,000 unit) capsule levothyroxine 88 mcg capsule 88 mcg PO DIRECTED 04/11/25 History sertraline 25 mg tablet 37.5 mg PO DAILY 04/11/25 History Post menopausal: No Patient : No : No PFSH Medical History Anxiety Thyroid cancer 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 Pelvic congestion syndrome Vascular disease of abdomen Surgical History S/P endoscopy S/P colonoscopy H/O abdominal surgery Family History (Updated 04/11/25 @ 09:42 by Nargis Thakkar) Grandmother Breast cancer Unknown Uterine cancer great aunt x2 Grandfather Colon cancer Father Hypertension Hyperlipidemia Aunt Ovarian cancer x2 Social History Smoking Status: Never smoker alcohol intake: never substance use type: does not use additional social history: - Moises HPI Discuss several problems Details: The patient is a 40-year-old female presenting with concerns related to pelvic congestion syndrome,fibroids, and menopausal symptoms. 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 She underwent extensive testing and consultations with specialists, and although surgery was recommended, she opted to manage the condition conservatively due to potential surgical complications. The patient reports experiencing hair loss, weight loss, lack of appetite, and increased urinary frequency since turning 40. She also describes gastrointestinal disturbances, including diarrhea, and suspects these symptoms may be related to menopausal changes, as her mother experienced early menopause. The patient has a history of thyroid cancer and is currently on levothyroxine therapy, with regularmonitoring of thyroid levels. She notes that her periods have become increasingly painful, often localized to the right side, and suspects fibroids may be contributing to her symptoms. The patient has a significant family history of breast and ovarian cancer, with her grandmother andtwo great-aunts affected. She has undergone genetic testing for BRCA mutations, which may influenceher decision regarding surgical interventions. Attestation: Documentation on this patient encounter was supported using ambient scribe technology/ voice AI technology. The patient consented to recording for the purpose of documenting the encounter. Provider reviewed content of the generatednote prior to signature. History 6 Elective abortions Hx Para 3 Spontaneous abortions Hx # Term Pregnancies Ectopic pregnancies Hx # Pregnancies Multiple births # of living children 2 Past Pregnancies Del. Date Name GA/Weeks Outcome Route Bth Weight Infant Gen Labor Lgth Anesthesia Del Locatn Provider FOB Unknown Deanne Unknown Khai Unknown Nargis 36 still Delivery Date: Last Updated by: Nargis Thakkar Trisomy 18 ROS Const ROS Unobtainable: All systems reviewed & are unremarkable except as noted in H Resp Resp: Reports system reviewed and no additional complaints, except as documented; Denies cough GI GI: Reports as per HPI Psych Psych: Reports system reviewed and no additional complaints, except as documented Exam Const General: cooperative, healthy appearing, comfortable and no acute distress Resp Effort & Inspection: normal respiratory effort Skin General: no rashes or lesions noted Psych Appearance: grossly normal Speech and Movement: speech and movement normal Coding Level of Care Code Off vis,est,level 4 Diagnoses Female climacteric state N95.1 Vascular disease of abdomen I99.9 Pelvic congestion syndrome N94.89 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 May-Thurner syndrome I87.1 Thyroid cancer C73 Anxiety F41.9 Assessment and Plan Assessment and Plan (1) Female climacteric state: Status: Acute (2) Vascular disease of abdomen: Status: Acute Comment: vascular depression (3) Pelvic congestion syndrome: Status: Acute (4) Nutcracker phenomenon of renal vein: Status: Acute Comment: surgery x1 (5) May-Thurner syndrome: Status: Acute (6) Thyroid cancer: Status: Acute (7) Anxiety: Status: Acute Orders: Orders Transvaginal Non- Today N94.89 - Other specified conditions associated with female genital organs and menstrual cycle, N95.1 - Menopausal and female climacteric states Estradiol Today N94.89 - Other specified conditions associated with female genital organs and menstrual cycle, N95.1 - Menopausal and female climacteric states FSH and LH Today N94.89 - Other specified conditions associated with female genital organs and menstrual cycle, N95.1 - Menopausal and female climacteric states Plan Assessment and Plan 40-year-old female with a 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 The patient's pelvic congestion syndrome is likely contributing to her right- sided pelvic pain and may be exacerbated by fibroids, which require further evaluation through ultrasound. Her symptoms ofhair loss, weight loss, and gastrointestinal disturbances may be indicative of hormonal changes associated with menopause, necessitating further hormonal evaluation. Given her family history of breast and ovarian cancer, genetic testing for BRCA mutations is prudent to assess her risk and guide potential surgical decisions. 1. Pelvic Congestion Syndrome The plan includes performing an ultrasound to evaluate the size and impact of fibroids on pelvic congestion syndrome. Consideration of surgical intervention, such as hysterectomy, is discussed, with emphasis on consulting a vascular surgeon for surgical clearance due to the patient's vascular conditions. -repeat ultrasound today ordered. -will need pre- op clearance from Dr. Helms at [facility] if we decide to do a hyterectomy 2. Menopausal Symptoms Hormonal evaluation through blood tests, including follicle-stimulating hormone and luteinizing hormone levels, is planned to assess menopausal status. Management of symptoms such as hot flashes and brain fog will be guided by theseresults. 3. Family History Of Breast And Ovarian Cancer Genetic testing for BRCA mutations is recommended to evaluate the patient's riskand inform surgicaldecisions regarding the removal of ovaries. The patient is advised to consider this testing, especially given her significant family history. 04/11/25 0948 e Velde DO> Date _ Jolly Peck DO Cosigner Signature: Date (if applicable) CC: ~ [facility]11-14-2022 History of Present illness Narrative* Maciel Helms MD - 07/06/2022 9:00 AM EST Images from the original note were not included. Heart , Vascular and Thoracic [place] DEPARTMENT OF VASCULAR SURGERY OUTPATIENT VISIT DATE June 23, 2022 OUTPATIENT VISIT TYPE ESTABLISHED SERVICE DATE: 07/03/2022 SERVICE TIME: 12:29 PM PRIMARY CARE PHYSICIAN: No Pcp HISTORY OF PRESENT ILLNESS: Ms. Hernandez is a 37 year old female who presents today for a vascular surgery follow-up visit with history of MALS. Pt doing well. No c/o abdomen pain or pain after eating. Gets intermittent pain under left rib cage when sitting for long periods of time. Also c/o muscle spasms in abdomen with physical activity. Denies any nausea/vomiting or unintentional weight loss. Feeling much better overall since surgery last year. She has undergone the following procedures: Median arcuate ligament release, celiac plexus neurolysis, and umbilical hernia repair in 06/2021 STUDIES: Mesenteric duplex Aorta is patent Celiac: 0-69% stenosis. No evidence of hemodynamically significant stenosis. Hepatic: Patent. Splenic: Patent. Superior mesenteric artery: 0-69% stenosis. No evidence of hemodynamically significant stenosis. Inferior mesenteric artery: 0-69% stenosis. No evidence of hemodynamically significant stenosis. LEFT RENAL Patent left renal vein. Respirophasic flow noted at mid and distal segment. Narrowest area measures approximately 0.38 cm in diameter. Distal measures approximately 0.75 cm indiameter. PAST MEDICAL HISTORY Diagnosis Date Thyroid cancer (HCC) 2018 PAST SURGICAL HISTORY Procedure Laterality Date PAST SURGICAL HISTORY OF colonoscopy EGD PAST SURGICAL HISTORY OF 2020 nerve block PAST SURGICAL HISTORY OF wisdom teeth THYROIDECTOMY TOTAL/COMPLETE 2019 SOCIAL HISTORY Social History Tobacco Use Smoking status: Never Smokeless tobacco: Never Substance Use Topics Alcohol use: Never Drug use: Never MEDICATIONS: oxyCODONE IR (ROXICODONE) 5 mg immediate release tablet Take 1-2 tablets by mouth every 6 hours as needed for pain for up to 7 days. Do not start before June 29, 2021. acetaminophen (TYLENOL) 325 mg tablet Take 2 tablets by mouth every 6 hours. polyethylene glycol 3350 (MIRALAX, GLYCOLAX) 17 gram packet Take 1 Packet by mouth once daily. Dissolve dose in 4 - 8 ounces of liquid and take as directed. sertraline (ZOLOFT) 25 mg tablet Take 25 mg by mouth once daily. levothyroxine 88 mcg cap Take 88 mcg by mouth daily before breakfast. ALLERGIES: ALLERGIES Allergen Reactions Bactrim [Sulfametho* Rash Morphine Intolerance Nausea and pt felt like she could not breathe PHYSICAL EXAM: LMP 06/19/2021 (Exact Date) General: Alert and oriented Integumentary: Normal color, no rash, no lesions. HEENT: EOM, pupils equal, round and reactive. Cardiovascular: Lungs: Abdomen: Soft, non-tender, no rigidity. Extremities: No deformity, no edema or tenderness, no joint swelling or clubbing. Neurological: Normal cognition and motor skills. Vascular: Diagnostic tests reviewed for today's visit: Most recent imaging IMPRESSION: Ms. Hernandez is a 37 year old female s/p MALS release doing well, no compression of celiac PLAN and RECOMMENDATIONS: Follow-up clinically Medical Decision Making: Problems: Low: Stable chronic illness Data: Unique test(s) ordered: 1 Risk: Low: Low risk from testing/treatment Medical Decision Making Level: 3 - Low SIGNATURE: Maciel Helms MD PATIENT NAME: Jessa Hernandez DATE: July 03, 2022 TIME: 12:29 PM [facility] NoteHNO ID: [id number] Author: Maciel Helms MD Service: ? Author Type: Physician Type: Progress Notes Filed: 10/09/2021 9:40 AM Note Text: Post-op Visit Ms. Jessa Hernandez is a 36 year old year old female S/P 3 month median arcuate ligament release, celiac plexus neurolysis, and umbilical hernia repair on 06/25/2021. SUBJECTIVE: Pt states she is doing very well, no concerns or complaints. No c/o abd pain or pain after eating. Her symptoms have significantly improved. Denies any surgical pain, feels completely recovered from surgery. Denies any unintentional weight loss, is actually gaining weight. No new concerns since last office visit. STUDIES: Mesenteric Duplex EXAM: Incision: Clean and dry Abdominal Exam: Normal IMPRESSION:Stable post op No discomfort with eating, doing extremily PLAN: Follow up in one year with mesenteric duplex Maciel Helms M.D., F[facility]12-02-2021 NoteHNO ID: [id number] Author: Maciel Helms MD Service: ? Author Type: Physician Type: Progress Notes Filed: 07/24/2021 11:36 AM Note Text: Post-op Visit Ms. Jessa Hernandez is a 36 year old year old female S/P Median arcuate ligament release with celiac plexus neurolysis and umbilical hernia repair 06/25/2021 SUBJECTIVE: Ms. Jessa Hernandez is doing better. She still has discomfort in the epigastric region and in the mid back if she eats a large portion or greasier food. Her symptoms have improved. The nausa pretty much gone. Mid abd incision healed well. No signs of infection. Her scale at home is not working EXAM: Abdominal Exam: Normal and incision clean and dry IMPRESSION:Stable post op Feels much better PLAN: duplex scan in 3 months Maciel Helms M.D., F[facility]11-05-2021 NoteHNO ID: [id number] Author: Adal Woodruff MD Service: Vascular Surgery Author Type: Resident Type: Progress Notes Filed: 06/27/2021 7:04 AM Note Text: [facility] PROGRESS NOTE Service Date: 06/27/2021 Admit Date: 06/25/2021 Service Time: 6:58 AM Hospital Day: 2 day(s) Vascular Physician: Maciel Helms MD Interval Events/Issues: No acute events overnight, NGT pulled yesterday and advanced to regular diet without issues and ate a full dinner lest night. Tolerating new diet well, no belching/N/V/abdominal distention. Pain is controlled when she takes her PRNs. No BM, (+) flatus, void spontaneously after corrigan removal yesterday. States she feels good enough to go home. Subjective Inpatient Medications Current Facility-Administered Medications Medication Dose Route Frequency - levothyroxine 88 mcg tab(s) (SYNTHROID) 88 mcg ORAL BEFORE BREAKFAST DAILY - acetaminophen 650 mg tab(s) (TYLENOL) 650 mg ORAL q 6 H - oxyCODONE IR 5-10 mg tab(s) (ROXICODONE) 5-10 mg ORAL q 4 H PRN - heparin 5,000 Units injection 5,000 Units SUBCUTANEOUS q 8 H - HYDROmorphone 0.2 mg injection (DILAUDID) 0.2 mg INTRAVENOUS q 3 H PRN - sertraline 25 mg tab(s) (ZOLOFT) 25 mg ORAL DAILY - ondansetron (PF) 4 mg injection (ZOFRAN) 4 mg INTRAVENOUS q 6 H PRN Medication and Non-Pharmacologic VTE Prophylaxis/Anticoagulants Anticoagulant AND Antiplatelet Medications (From admission, onward) Start Dose Route Frequency Last Action Ordered Stop 06/25/21 1800 heparin 5,000 Units injection (Surgical Risk Categories) 5,000 Units SUBCUTANEOUS EVERY 8 HOURS Given, 06/27 62206/25/21 175 -- 06/25/21 1800 pneumatic compression stockings ([place], [place]) 06/25/21 174 activity - mobilize patient ([place]) VTE Prophylaxis: VTE prophylaxis appropriate ALLERGIES Allergen Reactions - Bactrim [Sulfametho* Rash - Morphine Intolerance Nausea and pt felt like she could not breathe Objective PHYSICAL EXAM: BP 104/63 Pulse (!) 51 Temp 36.9 ?C (98.4 ?F) Resp 16 Wt 55.7 kg (122 lb 12.7 oz) LMP 06/19/2021 (Exact Date) SpO2 99% BMI 21.75 kg/m? Admit: Weight: 55.7 kg (122 lb 12.7 oz) (06/26/21 06) Last: Weight: 55.7 kg (122 lb 12.7 oz) (06/26/21599) Intake/Output Summary (Last 24 hours) at 06/27/2021 0658 Last data filed at 06/26/2021 1600 Gross per 24 hour Intake 1106 ml Output 940 ml Net 166 ml CONSTITUTIONAL: Well developed, Well nourished , Thin and No acute distress NEUROLOGIC/PSYCHIATRIC: Oriented to time, place AND person and No gross focal neurologic deficits HEENT: EOM's intact and NGT in place LUNGS: Respiratory effort: normal, satting well oN RA HEART: Regular rate AND rhythm ABDOMEN: Soft, Non-tender, Non-distended and appropriately tender to palpation INTEGUMENTARY: Wound - No SURGICAL SITES: Abdomen - Clean, dry and intact MUSCULOSKELETAL: No deformities Pulses/Signals: palpable DP/PT bilaterally DATA: Laboratory: Recent Labs 06/26/21 0200 WBC 12.39* HB 12.9 HCT 37.9 PLT 247 Recent Labs 06/26/21 0200 NA 135* K 3.7 BUN 8 CREAT 0.66 GLUC 124* Assessment/Plan Impression: Jessa Hernandez is a 36 year old with MALS s/p Medial arcuate ligament release on 06/25/21, recovering well on normal post-operative course. Plan: - Pain control with scheduled Tylenol, Oxy PRN, Dilaudid PRN - Increase bowel regiment with Miralax -encouraged ambulation to help with return of bowel function - potential d/c today Active Problems: Median arcuate ligament syndrome (HCC) Adal Woodruff MD Vascular Surgery, PGY-1 [id number] 06/27/2021[facility]11-04-2021 NoteHNO ID: [id number] Author: Lisa Phillips RN Service: Care Management Author Type: Registered Nurse Type: Care Mgt Initial Assessment Filed: 06/26/2021 10:04 AM Note Text: CARE MANAGEMENT: ASSESSMENT AND DISCHARGE PLAN SERVICE DATE: June 26, 2021 SERVICE TIME: 10:04 AM PRIMARY CARE PHYSICIAN: Neva Barrientos NP ADMISSION STATUS: Inpatient Needs Prior to Discharge: None MEDICAL: SIKHISM SELF PAY GENERIC Patient/Grad Intern Stated Goals: To return home to life as it was;To be cured/healed Health Insurance: Comment ([facility]) Health Issues Impacting Discharge Plan: Newly diagnosed Newly Diagnosed: post op Last Discharge Date: 06/04/21 Is this Within the Past 30 days? Last discharge within 30 days: No Advance Directive: Current Advance Directive: None Decator Operator Attempted to Assist with AD Completion: Yes Action: Education Provided Health LiteracyHow often do you need to have someone help you when you read instructions, pamphlets, or other written material from your doctor or pharmacy? : 1 - Never How confident are you filling out medical forms by yourself?: 1 - Extremely Baseline Mental Status Prior to this Illness what was the patient's Baseline Mental Status?: Alert AND Oriented Prior to this illness, has anyone described the patient having any of the following behaviors?: Not Applicable Relationship of the informant to the patient:: Self Functional Status: Independent Does Patient Currently Receive Any Community Services or Home Care?: None Equipment Prior to Admission: None Has the Patient Been in a Long-Term Facility in the Past 30 days?: No SOCIAL: Living Arrangements: Home Financial Resources: Not Applicable Primary Contact: Extended Emergency Contact Information Primary Emergency Contact: Mary, Mark Mobile Relation: Spouse Supportive Patient Contact:: Yes Caregiver AssessmentCaregiver is ready, willing and able to meet the patient's needs as recommended by the inter-professional team:: No Caregiver needed Does the patient have an acute stroke diagnosis, or has the patient had a stroke during this admission?: No Patient's transition needs and plan for meeting these needs: Medical clearance Patient's perception of need for this admission: Surgery Medication Adherance I am convinced of the importance of my prescription medication: 0 - Agree Completely I worry that my prescription medication will do more harm than good to me : 0 - Disagree Completely I feel financially burdened by my [id number] expenses for my prescription medication:: 0 - Disagree Completely Risk Score: 0 Patient is categorized as: Low risk < 2 Are you interested in bedside delivery of your medications? No Is Patient Psychosocially Complex?: No ASSESSMENT AND PLAN: Medical Needs: Medical Needs: Other Needs (post op) Psychosocial Needs: Psychosocial Needs: None FREEDOM OF CHOICE EXPLAINED: [place] of Choice Given: No Reason Not Given: No placements necessary POTENTIAL TRANSITION PLANS No Services Indicated : Patient independent from home No assistive devices Anticipate d/c home with spouse SIGNATURE: Lisa Phillips RN PATIENT NAME: Jessa Hernandez DATE: June 26, 2021 TIME: 10:04 AM PAGER/CONTACT #: [phone] NoteHNO ID: [id number] Author: Yudelka Elizabeth MD Service: Critical Care Author Type: Anesthesiologist Type: Progress Notes Filed: 06/26/2021 8:55 AM Note Text: SERVICE DATE: 06/26/2021 SERVICE TIME: 8:55 AM SURGICAL INTENSIVE CARE UNIT PROGRESS NOTE BRIEF HPI: This is a 36 year old female with a history of thyroid cancer. She underwent a median arcuate ligament release with Dr. Helms on 06/25/2021. Airway: Grade IIa w/DL EBL: 50cc Crystalloids: 2L NG tube in place and position confirmed. NPO overnight 06/26: No acute events overnight. D/C NGT, Corrigan and [place]. Normal Lactate . Can transfer to [facility]/ DC home. Subjective INTERVAL EVENTS: Improved Objective MEDICATIONS: Current medications and allergies reviewed. Recommended/planned medication changes discussed in detail in the A/P section below. Please refer to [facility] for list of inpatient medications. VITAL SIGNS: BP 118/73 Pulse (!) 53 Temp 37 ?C (98.6 ?F) (Oral) Resp 12 Wt 55.7 kg (122 lb 12.7 oz) LMP 06/19/2021 (Exact Date) SpO2 98% BMI 21.75 kg/m? Current Weight: Weight: 55.7 kg (122 lb 12.7 oz) Admission Weight: Weight: 55.7 kg (122 lb 12.7 oz) PHYSICAL EXAM: General: Alert, no distress, cooperative Skin: Skin color, texture, turgor normal. No rashes or lesions. Eyes: PERRLA, EOMI Lungs: Lungs clear to auscultation, Good diaphragmatic excursion Cardiac: Normal S1 and S2; no rubs, murmurs, or gallops Abdomen: Abdomen soft, non-tender, BS normal, No masses or organomegaly Neuro: Gait normal. Reflexes normal and symmetric. Sensation grossly intact, Cranial nerves II-XII intact Pulses: 2+ radial, 2+ carotid Wound: Clean, dry and intact DATA: Diagnostic tests reviewed for today's visit: Most recent labs and imaging results. ICU Checklist Last Documented/Reviewed time: 06/26/2021 8:46 AM A= Assess, Prevent, Manage Pain Pain adequately controlled?: Yes C= Choice of Sedation and Analgesia RASS at Goal?: (Comment: N/A) B= Both Spontaneous Awakening and Breathing Trials Ventilator: None D= Delirium: Assess, Prevent and Manage ICU Delirium Status: CAM Negative - no action required Sleep adequate?: Yes Restraint Status: None E= Early Mobility/Excercise ICU Mobility: ICU Mobility-Pt Has Been Out of Bed: (Comment: PODS#0) F= Family Engagement and Empowerment ICU plan of care visit at bedside in last 24 hours: Yes, Provider, RN, Patient/ designee ICU Disposition: ICU Disposition- Is Patient Clinically Ready to Transfer to [facility] or SDU?: No Discharge Planning: To be determined Prevention: Line Status: Arterial line Arterial Line Status: Able to remove today Corrigan Status: None Pressure Injury Status: None GI/Stress Ulcer Prophylaxis: (Comment: NPO) Nutrition is at Goal: Advancing to goal VTE Prophylaxis: Chemoprophylaxis: Heparin SQ Mechanical Prophylaxis: Knee high SCD Assessment AND Plan Cardiovascular Median arcuate ligament syndrome (HCC)? (present on admission) Assessment: 06/25 median arcuate ligament release w/Dr. Helms PLAN: Lactate normal Remove Shekhar Macdonald and NGT -Start diet Medication and Non-Pharmacologic VTE Prophylaxis/Anticoagulants Anticoagulant AND Antiplatelet Medications (From admission, onward) Start Dose Route Frequency Last Action Ordered Stop 06/25/21 1800 heparin 5,000 Units injection (Surgical Risk Categories) 5,000 Units SUBCUTANEOUS EVERY 8 HOURS Given, 06/26 0502 06/25/211750 -- 06/25/21 1800 pneumatic compression stockings ([place], [place]) 06/25/21 1745 activity - mobilize patient ([place]) VTE Prophylaxis: VTE prophylaxis appropriate Plan of care discussed with: Provider, RN, Patient SIGNATURE: Yudelka Elizabeth MD PATIENT NAME: Jessa Hernandez DATE: June 26, 2021 TIME: 8:55 AM SURGICAL ICU STAFF ADDENDUM I have reviewed and verified the recent history and physical examination obtained and documented by the resident physician and I personally participated in the block components. I have discussed the case and management of the patient's care, exclusive of separately billed procedures which fulfilled the standards for LEVEL 2. SIGNATURE: Yudelka Elizabeth MD DATE: 06/26/2021 TIME: 8:55 [facility]11-04-2021 NoteHNO ID: [id number] Author: Adal Woodruff MD Service: Vascular Surgery Author Type: Resident Type: Progress Notes Filed: 06/26/2021 8:01 AM Note Text: [facility] PROGRESS NOTE Service Date: 06/26/2021 Admit Date: 06/25/2021 Service Time: 7:54 AM Hospital Day: 1 day(s) Vascular Physician: Maciel Helms MD Interval Events/Issues: No acute events overnight, sleeping in bed, AFVSS and ICU labs wnl, pain well controlled on IV Dilaudid and scheduled Toradol (will transition to PO pain meds once NGT is out). No N/V, abd distention, (-) flatus/BM, denies CP/SOB. Subjective Inpatient Medications Current Facility-Administered Medications Medication Dose Route Frequency - levothyroxine 88 mcg tab(s) (SYNTHROID) 88 mcg ORAL BEFORE BREAKFAST DAILY - acetaminophen 650 mg tab(s) (TYLENOL) 650 mg ORAL q 6 H - oxyCODONE IR 5-10 mg tab(s) (ROXICODONE) 5-10 mg ORAL q 4 H PRN - heparin 5,000 Units injection 5,000 Units SUBCUTANEOUS q 8 H - HYDROmorphone 0.2 mg injection (DILAUDID) 0.2 mg INTRAVENOUS q 3 H PRN - keTORolac 15 mg injection (TORADOL) 15 mg INTRAVENOUS q 8 H - sertraline 25 mg tab(s) (ZOLOFT) 25 mg ORAL DAILY - ondansetron (PF) 4 mg injection (ZOFRAN) 4 mg INTRAVENOUS q 6 H PRN Medication and Non-Pharmacologic VTE Prophylaxis/Anticoagulants Anticoagulant AND Antiplatelet Medications (From admission, onward) Start Dose Route Frequency Last Action Ordered Stop 06/25/21 1800 heparin 5,000 Units injection (Surgical Risk Categories) 5,000 Units SUBCUTANEOUS EVERY 8 HOURS Given, 06/26 0502 06/25/21 175 -- 06/25/21 1800 pneumatic compression stockings ([place], [place]) 06/25/21 1745 activity - mobilize patient ([place]) VTE Prophylaxis: VTE prophylaxis appropriate ALLERGIES Allergen Reactions - Bactrim [Sulfametho* Rash - Morphine Intolerance Nausea and pt felt like she could not breathe Objective PHYSICAL EXAM: BP 118/73 Pulse (!) 53 Temp 36 ?C (96.8 ?F) (Temporal) Resp 12 Wt 55.7 kg (122 lb 12.7 oz) LMP 06/19/2021 (Exact Date) SpO2 98% BMI 21.75 kg/m? Admit: Weight: 55.7 kg (122 lb 12.7 oz) (06/26/21 06) Last: Weight: 55.7 kg (122 lb 12.7 oz) (06/26/21 06) Intake/Output Summary (Last 24 hours) at 06/26/2021 5124 Last data filed at 06/26/2021 0745 Gross per 24 hour Intake 3268.5 ml Output 1030 ml Net 2238.5 ml CONSTITUTIONAL: Well developed, Well nourished , Thin and No acute distress NEUROLOGIC/PSYCHIATRIC: Oriented to time, place AND person and No gross focal neurologic deficits HEENT: EOM's intact and NGT in place LUNGS: Respiratory effort: normal, satting well oN RA HEART: Regular rate AND rhythm ABDOMEN: Soft, Non-tender, Non-distended and appropriately tender to palpation INTEGUMENTARY: Wound - No SURGICAL SITES: Abdomen - Clean, dry and intact MUSCULOSKELETAL: No deformities Pulses/Signals: palpable DP/PT bilaterally DATA: Laboratory: Recent Labs 06/26/21 0200 WBC 12.39* HB 12.9 HCT 37.9 PLT 247 Recent Labs 06/26/21 0200 NA 135* K 3.7 BUN 8 CREAT 0.66 GLUC 124* Assessment/Plan Impression: Jessa Hernandez is a 36 year old with MALS s/p Medial arcuate ligament release on 06/25/21, recovering well on normal post-operative course. Plan: - transfer to [facility] - d/c NGT and IVF - Clear diet today and if tolerating later this afternoon will change to regular diet - Finish IV Toradol doses this AM - Start PO meds when NGT out - d/c radial art line - Keep corrigan in for now Active Problems: Median arcuate ligament syndrome (HCC) Adal Woodruff MD Vascular Surgery, PGY-1 [id number] 06/26/2021[facility]11-04-2021 NoteHNO ID: [id number] Author: Penny Gonzalez PA-C Service: Anesthesiology Author Type: Physician Carton Making Machine Operator Type: Progress Notes Filed: 06/26/2021 7:28 AM Note Text: Acute Pain Service Progress Note PATIENT NAME: Jessa Hernandez : 1985 Acute Pain Service Service date/time: 06/26/2021 7:22 AM Primary service: Vascular Chief complaint: Post-operative pain Interval HPI POD: 1 Pre-Operative (baseline) Pain Score: 3/10 (9/10 at its worst) History of chronic pain: yes Location: Abdomen Duration of pain: Intermittent Pain regiment prior to admission: Tylenol (had rx for Ultram and gabepentin but rarely used. Primarily used Tylenol) Pain Level At rest: 4 Plan ASSESSMENT AND PLAN: Jessa Hernandez is a 36 year old female who is POD 1, S/P Median Arcuate Ligament release with umbilical hernia repair with B/L TAP blocks with Exparel peripheral nerve catheter for post-operative pain control. Pain is currently well-controlled and patient denies intolerable side effects from the block. Continue multimodal analgesics: - Avoid the use of additional local anesthetics/lidocaine patches for 96 hours after the administration of Exparel Acute Pain Service will sign off - please re consult if needed Patient analgesic options via: other Plan discussed with: patient Plan discussed with: Dr. Chavez Comments Review of Systems Cardiovascular (-) chest pain, palpitations PIGMENT WEIGHER (+) numbness within ditribution of block NEURO (+) diminished sensation with distribution Skin - negative skin ROS ENT - negative ENT ROS GI (-) vomiting Respiratory (+) breathing appears normal Sensory / Motor Exam Affect: alert, oriented to person, place, and time, awake, General Appearance: in good spirits, Functional: transfers Non-Surgical Limb LUE: sensation intact RUE: sensation intact LLE: sensation intact RLE: sensation intact Trunk Abdomen: diminished at distribution of nerve block Back: Motor Exam Left Upper Extremity Intact Right Upper Extremity Intact Left Lower Extremity Right Lower Extremity BP 118/73 Pulse 62 Temp 36 ?C (96.8 ?F) (Temporal) Resp 15 Wt 55.7 kg (122 lb 12.7 oz) LMP 06/19/2021 (Exact Date) SpO2 100% BMI 21.75 kg/m? ALLERGIES Allergen Reactions - Bactrim [Sulfametho* Rash - Morphine Intolerance Nausea and pt felt like she could not breathe Current Facility-Administered Medications Medication Dose Route Frequency - levothyroxine 88 mcg tab(s) (SYNTHROID) 88 mcg ORAL BEFORE BREAKFAST DAILY - acetaminophen 650 mg tab(s) (TYLENOL) 650 mg ORAL q 6 H - oxyCODONE IR 5-10 mg tab(s) (ROXICODONE) 5-10 mg ORAL q 4 H PRN - heparin 5,000 Units injection 5,000 Units SUBCUTANEOUS q 8 H - HYDROmorphone 0.2 mg injection (DILAUDID) 0.2 mg INTRAVENOUS q 3 H PRN - keTORolac 15 mg injection (TORADOL) 15 mg INTRAVENOUS q 8 H - sertraline 25 mg tab(s) (ZOLOFT) 25 mg ORAL DAILY - ondansetron (PF) 4 mg injection (ZOFRAN) 4 mg INTRAVENOUS q 6 H PRN APTT 29.1 06/18/2021 PT Sec 11.1 06/18/2021 PT INR 1.0 06/18/2021 Hemoglobin 12.9 06/26/2021 Hematocrit 37.9 06/26/2021 Platelet Count 247 06/26/2021 SIGNATURE: Penny Gonzalez PA-C [phone] DATE: June 26, 2021 TIME: 7:22 [facility]11-03-2021 NoteHNO ID: [id number] Author: Adal Woodruff MD Service: Vascular Surgery Author Type: Resident Type: Plan of Care Filed: 06/25/2021 7:54 PM Note Text: Vascular Surgery Plan of Care: Patient Name: Jessa eHrnandez 06/25/2021 6:11 PM S/p Median Arcuate Ligament Release. Post-op Orders: - NPO and NGT to LIWS - Keep NGT in overnight and discontinue tomorrow morning - LR @75cc/hr while NGT is in - SQH tonight starting at 2000 - Toradol IV 15mg q8h for 3 total doses - CBC, BMP, lactate once patient arrives in CSICU and tomorrow morning 0400 - SBP goals: 100-140 Adal Woodruff MD Vascular Surgery, PGY-1 [id number] NoteHNO ID: [id number] Author: Erika Blank APRN.TRANSMITTER ENGINEER IN CHARGE Service: Critical Care Author Type: Nurse Practitioner Type: Progress Notes Filed: 06/25/2021 5:56 PM Note Text: SERVICE DATE: 06/25/2021 SERVICE TIME: 5:55 PM SURGICAL INTENSIVE CARE UNIT PROGRESS NOTE BRIEF HPI: This is a 36 year old female with a history of thyroid cancer. She underwent a median arcuate ligament release with Dr. Helms on 06/25/2021. Airway: Grade IIa w/DL EBL: 50cc Crystalloids: 2L NG tube in place and position confirmed. NPO overnight Subjective INTERVAL EVENTS: Improved Objective MEDICATIONS: Current medications and allergies reviewed. Recommended/planned medication changes discussed in detail in the A/P section below. Please refer to Epic for list of inpatient medications. VITAL SIGNS: BP 111/68 Pulse (!) 54 Temp 37.1 ?C (98.8 ?F) (Oral) Resp (!) 34 LMP 06/19/2021 (Exact Date) SpO2 100% Current Weight: Admission Weight: Physical Exam Constitutional: Comments: Drowsy, emerging from anesthesia HENT: Head: Normocephalic. Eyes: Pupils: Pupils are equal, round, and reactive to light. Cardiovascular: Rate and Rhythm: Normal rate and regular rhythm. Pulses: Normal pulses. Heart sounds: Normal heart sounds. Pulmonary: Effort: Pulmonary effort is normal. Breath sounds: Normal breath sounds. Abdominal: General: Abdomen is flat. Palpations: Abdomen is soft. Musculoskeletal: General: Normal range of motion. Cervical back: Normal range of motion. Skin: General: Skin is warm. Capillary Refill: Capillary refill takes less than 2 seconds. Neurological: General: No focal deficit present. DATA: Diagnostic tests reviewed for today's visit: Most recent labs and imaging results. Most recent EKG ICU Checklist Last Documented/Reviewed time: 06/25/2021 5:52 PM A= Assess, Prevent, Manage Pain Pain adequately controlled?: Yes C= Choice of Sedation and Analgesia RASS at Goal?: (Comment: N/A) B= Both Spontaneous Awakening and Breathing Trials Ventilator: None D= Delirium: Assess, Prevent and Manage ICU Delirium Status: CAM Negative - no action required Sleep adequate?: Yes Restraint Status: None E= Early Mobility/Excercise ICU Mobility: ICU Mobility-Pt Has Been Out of Bed: (Comment: PODS#0) F= Family Engagement and Empowerment ICU plan of care visit at bedside in last 24 hours: Yes, Provider, RN, Patient/ designee ICU Disposition: ICU Disposition- Is Patient Clinically Ready to Transfer to RNF or SDU?: No Discharge Planning: To be determined Prevention: Line Status: Arterial line Arterial Line Status: Reason to maintain Arterial Line Reason to Maintain: Hemodynamic monitoring Corrigan Status: None Pressure Injury Status: None GI/Stress Ulcer Prophylaxis: (Comment: NPO) Nutrition is at Goal: NPO VTE Prophylaxis: Chemoprophylaxis: Heparin SQ Mechanical Prophylaxis: Knee high SCD Assessment AND Plan Active Hospital Problems as of 06/25/2021 Noted - Resolved [facility] Hospital Median arcuate ligament syndrome (HCC) 06/18/2021 - Present Yes Current Assessment AND Plan Assessment: 06/25 median arcuate ligament release w/Dr. Helms PLAN: -NG, NPO overnight -pain management Medication and Non-Pharmacologic VTE Prophylaxis/Anticoagulants Anticoagulant AND Antiplatelet Medications (From admission, onward) Start Dose Route Frequency Last Action Ordered Stop 06/25/21 1800 heparin 5,000 Units injection (Surgical Risk Categories) 5,000 Units SUBCUTANEOUS EVERY 8 HOURS Ordered 06/25/21 1751 -- 06/25/21 1800 pneumatic compression stockings ([place], [place]) 06/25/21 1745 activity - mobilize patient ([place]) VTE Prophylaxis: VTE prophylaxis appropriate Plan of care discussed with: Provider, RN, Patient I have seen and reviewed the patient today for an aggregate of 30 minutes directly supervising and providing non-critical care to the patient as noted above.. Time spent included physical examination at the bedside and verifying the findings, reviewing labs and imaging, discussing with SICU staff, primary physician and consultants, and developing a plan of care with the bedside nurse. LEVEL 3 Seen and discussed on rounds with SICU staff: Dr. Elizabeth SIGNATURE: Erika Blank APRN.CNP PATIENT NAME: Jessa Hernandez DATE: June 25, 2021 [facility] NoteHNO ID: [id number] Author: NAHOMY Goetz Service: Anesthesiology Author Type: Clin Application Specialist Type: Anesthesia Procedure Notes Filed: 06/25/2021 3:01 PM Note Text: ANESTHESIOLOGY PROCEDURE NOTE PIV General Information Procedure Start Time/Medication Administration: 06/25/2021 2:31 PM Patient Location: OR Staffing Anesthesiologist: Tristian Sheets MD Performed by: anesthesiologist Preparation Sterility Preparation: hand hygiene performed prior to procedure, surgical cap used, mask used, skin prep agent completely dried prior to procedure Site Prep: alcohol Procedure Details Indication: need for IV access Needle Size/Type: 18 gauge angiocath Orientation: Right Location: Hand SIGNATURE: NAHOMY Goetz PATIENT NAME: Jessa Hernandez DATE: June 25, 2021 TIME: 3:00 PM CSN: [id number] NoteHNO ID: [id number] Author: NAHOMY Goetz Service: Anesthesiology Author Type: Clin Application Specialist Type: Anesthesia Procedure Notes Filed: 06/25/2021 2:58 PM Note Text: ANESTHESIOLOGY PROCEDURE NOTE Gastric Tube General Information Procedure Start Time/Medication Administration: 06/25/2021 2:37 PM Patient location during procedure: OR Timeout Performed Pre-procedure: timeout performed Indication: gastric decompression Staffing CAA: NAHOMY Goetz Performed by: KAYLAN Procedure Details Type: Nasogastric tube Cortrak monitor used: No Size: 18 Fr cm Distance Advanced: 55 cm Securement: taped to the nose Successful Placement: yes Post-Procedure Details SIGNATURE: NAHOMY Goetz PATIENT NAME: Jessa Hernandez DATE: June 25, 2021 TIME: 2:57 PM CSN: [id number] NoteHNO ID: [id number] Author: NAHOMY Goetz Service: Anesthesiology Author Type: Clin Application Specialist Type: Anesthesia Procedure Notes Filed: 06/25/2021 2:57 PM Note Text: ANESTHESIOLOGY PROCEDURE NOTE Airway General Information Procedure Start Time/Medication Administration: 06/25/2021 2:25 PM Patient location during procedure: OR Timeout Performed Pre-procedure: timeout performed Consent Obtained: Yes Patient identity confirmed: patient Staffing CAA: NAHOMY Goetz Performed by: KAYLAN Indications and Patient Condition Preoxygenated: yes Difficult Mask: No Indications for airway management: anesthesia Method: asleep Cricoid Pressure: No Final Airway Details Final airway type: endotracheal airway Final Endotracheal Airway: ETT Cuffed: yes Successful intubation technique: direct laryngoscopy Endotracheal tube insertion site: oral Blade: Gaming Blade size: #2 ETT size (mm): 6.5 Measured from: lips Measurement (cm): 21 Placement verified by: chest auscultation and capnometry Cormack-Lehane Classification: grade IIa - partial view of glottis Number of attempts at approach: 1 Airway not difficult SIGNATURE: NAHOMY Goetz PATIENT NAME: Jessa Hernandez DATE: June 25, 2021 TIME: 2:56 PM CSN: [id number] NoteHNO ID: [id number] Author: NAHOMY Goetz Service: Anesthesiology Author Type: Clin Application Specialist Type: Anesthesia Procedure Notes Filed: 06/25/2021 2:54 PM Note Text: ANESTHESIOLOGY PROCEDURE NOTE A-Line General Information Procedure Start Time/Medication Administration: 06/25/2021 2:33 PM Patient location during procedure: OR Timeout Performed Pre-procedure: timeout performed Indication: continuous blood pressure monitoring and blood sampling needed Staffing CAA: NAHOMY Goetz Performed by: CAA Preparation Sterility Preparation: hand hygiene performed prior to procedure, surgical cap used, mask used, sterile drape used during line insertion, skin prep agent completely dried prior to procedure Site Prep: Chloraprep Procedure Details Catheter Size: 20 G Catheter Length: 1.88 in Micropuncture Kit Used: No Guidewire Used: NoLaterality: left Site: radial artery Ultrasound Guided: NoLine Secured: occlusive biodressing and tape Events Events: patient tolerated procedure well with no complications SIGNATURE: NAHOMY Goetz PATIENT NAME: Jessa Hernandez DATE: June 25, 2021 TIME: 2:53 PM CSN: [id number] NoteHNO ID: [id number] Author: Basil Costa MD Service: Anesthesiology Author Type: Physician Type: Anesthesia Procedure Notes Filed: 06/25/2021 1:52 PM Note Text: ANESTHESIOLOGY PROCEDURE NOTE Peripheral Nerve Block General Information Procedure Start Time/Medication Administration: 06/25/2021 1:06 PM Procedure End time: 06/25/2021 1:10 PM Patient location during procedure: pre-op Timeout Performed Pre-procedure: timeout performed Consent Obtained: Yes Patient identity confirmed: arm band, care executive officer special warfare team and patient Reason for block: post-op pain management/at surgeon's request and pain service Staffing Anesthesiologist: Basil Costa MD Performed by: anesthesiologist Preparation Sterility Preparation: hand hygiene performed prior to procedure, surgical cap used, mask used, sterile drape used during line insertion, skin prep agent completely dried prior to procedure Site Prep: Chloraprep Pre-Procedure Neuro Exam Location: ABDOMEN Sensory: intact Motor: intact Procedure Details Patient Position: supine Monitoring: Pulse OX, EKG and NIBP Block Type Trunk: rectus sheath block Laterality: bilateral Injection Technique: single-shot Ultrasound Guided: Yes Image in Chart: yes Local Infiltration: Yes Needle Needle Type: echogenic Needle Gauge: 21 G Needle Length: 100 mm Needle Localization: ultrasound Medications Administered Bupivacaine (PF) 0.25 % (2.5 mg/mL) injection (SENSORCAINE MPF), 10 mL bupivacaine liposome (PF) 1.3 % (13.3 mg/mL) injection (EXPAREL), 133 mg Comments Bilateral rectus sheath block 10cc saline added for volume expansion Risks, benefits, and alternatives to block discussed prior to start of block procedure. Patient agreed to proceed. Patient is communicating. No pain on injection. Procedure is well tolerated. Extended block is expected up to 24 hours post-block. Patient can be discharged to floor/home with the block intact. Standard ASA monitors were used. Vital signs were stable throughout; please see nursing record for vital signs during procedure. SIGNATURE: Basil Costa MD PATIENT NAME: Jessa Hernandez DATE: June 25, 2021 TIME: 1:50 PM CSN: [id number] NoteHNO ID: [id number] Author: Basil Costa MD Service: Anesthesiology Author Type: Physician Type: Anesthesia Procedure Notes Filed: 06/25/2021 1:50 PM Note Text: ANESTHESIOLOGY PROCEDURE NOTE Peripheral Nerve Block General Information Procedure Start Time/Medication Administration: 06/25/2021 1:00 PM Procedure End time: 06/25/2021 1:05 PM Patient location during procedure: pre-op Timeout Performed Pre-procedure: timeout performed Consent Obtained: Yes Patient identity confirmed: arm band, care executive officer special warfare team and patient Reason for block: post-op pain management/at surgeon's request and pain service Staffing Anesthesiologist: Basil Costa MD Performed by: anesthesiologist Preparation Sterility Preparation: hand hygiene performed prior to procedure, surgical cap used, mask used, sterile drape used during line insertion, skin prep agent completely dried prior to procedure Site Prep: Chloraprep Pre-Procedure Neuro Exam Location: ABDOMEN Sensory: intact Motor: intact Procedure Details Patient Position: supine Monitoring: Pulse OX, EKG and NIBP Block Type Trunk: TAP block Multiple Levels: No Laterality: bilateral Injection Technique: single-shot Ultrasound Guided: Yes Image in Chart: yes Needle Needle Type: echogenic Needle Gauge: 21 G Needle Length: 100 mm Needle Localization: ultrasound Assessment Injection assessment: negative aspiration, no paresthesia on injection, incremental injection and local visualized surrounding nerve on ultrasound Paresthesia: none Post-Procedure Neuro Exam Expected Regional Anesthesia: Yes Medications Administered Bupivacaine (PF) 0.25 % (2.5 mg/mL) injection (SENSORCAINE MPF), 10 mL bupivacaine liposome (PF) 1.3 % (13.3 mg/mL) injection (EXPAREL), 133 mg Comments Bilateral TAP 10cc saline added for volume expansion Risks, benefits, and alternatives to block discussed prior to start of block procedure. Patient agreed to proceed. Patient is communicating. No pain on injection. Procedure is well tolerated. Extended block is expected up to 24 hours post-block. Patient can be discharged to floor/home with the block intact. Standard ASA monitors were used. Vital signs were stable throughout; please see nursing record for vital signs during procedure. SIGNATURE: Basil Costa MD PATIENT NAME: Jessa Hernandez DATE: June 25, 2021 TIME: 1:47 PM CSN: [id number] NoteHNO ID: [id number] Author: Benitez Cota RN Service: Nursing Author Type: Registered Nurse Type: Nursing Progress Note Filed: 06/25/2021 1:12 PM Note Text: [facility] NoteHNO ID: [id number] Author: Zaria Londono LPN Service: ? Author Type: LICENSED NURSE Type: Progress Notes Filed: 04/14/2021 7:28 AM Note Text: Please verify and cosign [facility] NoteHNO ID: [id number] Author: Maciel Helms MD Service: ? Author Type: Physician Type: Progress Notes Filed: 04/20/2021 3:16 PM Note Text: [facility] [place] DEPARTMENT OF VASCULAR SURGERY OUTPATIENT VISIT DATE April 10, 2021 CHIEF COMPLAINT: MALS HISTORY OF PRESENT ILLNESS: Consultation at the request of Dr. Maciel Helms for an opinion regarding MALS . A copy of my final recommendations will be communicated back to the requesting physician by way of shared Medical record or letter via US mail. Ms. Hernandez is a 36 year old female who presents today with chronic abdominal pain. Ongoing issue for 8 years that is getting progressively worse over the past 5-6 month Over the past few month she gets almost daily abdominal pain and pain at night that wakes her up The pain is epigastric r egion and will radiate around the left side to her back. Associated with nausea. No emesis. Patient is very caseous what she eats. More pain occurs with eating heavy, greasy foods or ice cream. Currently , there is no weight loss. She lost 10-15 lbs ~ 7 month ago. 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 Pt saw Dr Evans for a consult for celiac plexus block but she never proceed. He prescribed the Gabapentin but Pt did not take it. it yet. She has rx for Tramadol . I personally obtained the history of present illness. Maciel Helms MD STUDIES: Mesenteric Duplex: Celiac: Dynamic elevated velocities due to median arcuate ligament compression. Superior mesenteric artery: 0-69% stenosis. No evidence of hemodynamically significant stenosis. Inferior mesenteric artery: 0-69% stenosis. No evidence of hemodynamically significant stenosis. Elevated Celiac artery velocities at origin that resolve with inspiration as well as standing. ? RIGHT RENAL Right renal artery: Patent. ? LEFT RENAL Left renal artery: Patent. PAST MEDICAL HISTORY Diagnosis Date - Thyroid cancer (HCC) PAST SURGICAL HISTORY Procedure Laterality Date - THYROIDECTOMY SOCIAL HISTORY Social History Tobacco Use - Smoking status: Never Smoker - Smokeless tobacco: Never Used Substance Use Topics - Alcohol use: Never - Drug use: Never No family history on file. ALLERGIES: ALLERGIES Allergen Reactions - Bactrim [Sulfametho* Rash MEDICATIONS: traMADol (ULTRAM) 50 mg tablet Take 50 mg by mouth twice daily as needed. sertraline (ZOLOFT) 25 mg tablet Take 25 mg by mouth once daily. levothyroxine 88 mcg cap Take 88 mcg by mouth daily before breakfast. gabapentin (NEURONTIN) 100 mg capsule take 1 tab PO qHS x 3 days, then take 2 tabs PO qHS x 3 days, then take 1 tab PO qAM + 2 tabs PO qHS x 3 days, then take 2 tabs PO BID REVIEW OF SYSTEMS: GENERAL: Denies fever, chills, night sweats, or changes in weight. HEENT: negative NEURO: Denies any TIA/amaurosis symptoms, weakness or paralysis. CARDIO: No angina No ME RESPIRATORY: No COPD No ZHONG ENDO: No Diabetes No Thyroid Disease GI: Positive for abdominal discomfort : Negative for dysuria Negative for hematuria RENAL: No history of ESRD No history of Renal Insufficiency MUSCULOSKELETAL: Negative for low chronic back pain SKIN: Negative for rash, ulcers, lesions I personally interviewed, confirmed and edited the above information if obtained by others. PHYSICAL EXAMINATION: BP 115/54 (BP Site: Left Arm, BP Position: Sitting, BP Cuff Size: Regular Adult) Pulse 65 General: Healthy, alert, no distress, cooperative, Smiling Carotid: No bruits and Pulse 4/4 bilaterally Abd: ND/NT Extremities: no edema and no ulcerations Neuro: Awake, alert, and oriented., Gait normal. Sensation grossly intact., CN II-XII grossly intact. IMPRESSION: Ms. 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 She has lost 10 to 15 pounds over the last 6 months. Her upper and lower GI work-up has been normal. She is scheduled to get a celiac block plexus if this relieves her pain then we will proceed with a median arcuate ligament release. PLAN: Median arcuate ligament release Maciel Helms, [facility]08-19-2021 NoteHNO ID: [id number] Author: Akilah Jarrell RN Service: Radiology Author Type: Registered Nurse Type: Progress Notes Filed: 04/10/2021 7:59 AM Note Text: Radiology Service Progress Note DATE OF SERVICE: April 10, 2021 TIME: 7:47 AM PATIENT WEIGHT: 120 LBS PATIENT IDENTITY VERIFICATION COMPLETED USING TWO (2) STANDARD IDENTIFIERS: Name and Date of confirmed by patient verbally and Name and Date of confirmed by identification band. FALL SCREENING: Has the patient had 2 falls in the last year or 1 fall with injury or currently using an Ambulatory Assistive Device (Walker, Cane, Wheelchair, Crutches, etc.)? No PATIENT GENDER DATA: Female. status: : No status: NO. ALLERGIES: Reviewed and unchanged CONTRAST ALLERGY: No EXAM: CT -CONTRAST INDUCED NEPHROPATHY RISK FACTORS: Not applicable CREATININE: No results found for: CREAT, EGFROTH, EGFRAA P.O.C.T. RESULTS: N/A April 10, 2021 TREATMENT: N/A IV SITE: Ambulatory: A peripheral IV was started in the Right antecubital site with a Angio cath: 20 gauge. IV SITE APPEARANCE: Clean,Dry and Intact SIGNATURE: Akilah Jarrell RN PATIENT NAME: Jessa Hernandez DATE: April 10, 2021 TIME: 7:47 [facility]08-19-2021 NoteHNO ID: [id number] Author: Felipa Vences Service: Radiology Author Type: Chemical Strength Tester Type: Progress Notes Filed: 04/10/2021 8:09 AM Note Text: Radiology Service Progress Note PATIENT NAME: Jessa Hernandez DATE OF SERVICE: April 10, 2021 TIME: 8:09 AM PATIENT IDENTITY VERIFICATION COMPLETED USING TWO (2) IDENTIFIERS: Name and Date of confirmed by patient verbally. FALL SCREENING: Has the patient had 2 falls in the last year or 1 fall with injury or currently using an Ambulatory Assistive Device (Walker, Cane, Wheelchair, Crutches, etc.)? No PATIENT GENDER DATA: Female. status: : No status: NO. 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 [facility] Diagnosis Onset Date Resolution Status Admit Date Anxiety acute April 11 8:36am Female climacteric state acute April 11, 2025 8:36am May-Thurner syndrome acute Augu 2024 8:36am 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 [address], [address] [place] [address] OFFICE VISIT Date of Service: 04/11/25 MR#: [id number] Acct: [id number] Name: JESAS HERNANDEZ Rep #: [id number] : 1985 Provider: Dr. 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 Is patient in pain?: No Allergies sulfamethoxazole (From Bactrim) Allergy (Mild, Verified 04/11/25 08:45) Rash trimethoprim (From Bactrim) Allergy (Mild, Verified 04/11/25 08:45) Rash Medications ?Medication ?Instructions ?Recorded ?Confirmed ?Type B-complex with vitamin C 1 cap PO QDAY 04/11/2504/11 History cholecalciferol (vitamin D3) 25 25 mcg PO QDAY 5 04/11/25 History mcg (1,000 unit) capsule levothyroxine 88 mcg capsule 88 mcg PO DIRECTED 04/11/25 History sertraline 25 mg tablet 37.5 mg PO DAILY 04/11/25 History Post menopausal: No Patient : No : No PFSH Medical History Anxiety Thyroid cancer 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 Pelvic congestion syndrome Vascular disease of abdomen Surgical History S/P endoscopy S/P colonoscopy H/O abdominal surgery Family History (Updated 04/11/25 @ 09:42 by Nargis Thakkar) Grandmother Breast cancer Unknown Uterine cancer great aunt x2 Grandfather Colon cancer Father Hypertension Hyperlipidemia Aunt Ovarian cancer x2 Social History Smoking Status: Never smoker alcohol intake: never substance use type: does not use additional social history: - Moises HPI Discuss several problems Details: The patient is a 40-year-old female presenting with concerns related to pelvic congestion syndrome, fibroids, and menopausal symptoms. 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 She underwent extensive testing and consultations with specialists, and although surgery was recommended, she opted to manage the condition conservatively due to potential surgical complications. The patient reports experiencing hair loss, weight loss, lack of appetite, and increased urinary frequency since turning 40. She also describes gastrointestinal disturbances, including diarrhea, and suspects these symptoms may be related to menopausal changes, as her mother experienced early menopause. The patient has a history of thyroid cancer and is currently on levothyroxine therapy, with regular monitoring of thyroid levels. She notes that her periods have become increasingly painful, often localized to the right side, and suspects fibroids may be contributing to her symptoms. The patient has a significant family history of breast and ovarian cancer, with her grandmother and two great-aunts affected. She has undergone genetic testing for BRCA mutations, which may influence her decision regarding surgical interventions. Attestation: Documentation on this patient encounter was supported using ambient scribe technology/ voice AI technology. The patient consented to recording for the purpose of documenting the encounter. Provider reviewed content of the generatednote prior to signature. History 6 Elective abortions Hx Para 3 Spontaneous abortions Hx # Term Pregnancies Ectopic pregnancies Hx # Pregnancies Multiple births # of living children 2 Past Pregnancies Del. Date Name GA/Weeks Outcome Route Bth Weight Gen Labor Lgth Anesthesia Del Locatn Provider FOB Unknown Deanne Unknown Khai Unknown Nargis 36 still Delivery Date: Last Updated by: Nargis Thakkar Trisomy 18 ROS Const ROS Unobtainable: All systems reviewed & are unremarkable except as noted in H Resp Resp: Reports system reviewed and no additional complaints, except as documented; Denies cough GI GI: Reports as per HPI Psych Psych: Reports system reviewed and no additional complaints, except as documented Exam Const General: cooperative, healthy appearing, comfortable and no acute distress Resp Effort & Inspection: normal respiratory effort Skin General: no rashes or lesions noted Psych Appearance: grossly normal Speech and Movement: speech and movement normal Coding Level of Care Code Off vis,est,level 4 Diagnoses Female climacteric state N95.1 Vascular disease of abdomen I99.9 Pelvic congestion syndrome N94.89 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 May-Thurner syndrome I87.1 Thyroid cancer C73 Anxiety F41.9 Assessment and Plan Assessment and Plan (1) Female climacteric state: Status: Acute (2) Vascular disease of abdomen: Status: Acute Comment: vascular depression (3) Pelvic congestion syndrome: Status: Acute (4) Nutcracker phenomenon of renal vein: Status: Acute Comment: surgery x1 (5) May-Thurner syndrome: Status: Acute (6) Thyroid cancer: Status: Acute (7) Anxiety: Status: Acute Orders: Orders Transvaginal Non- Today N94.89 - Other specified conditions associated with female genital organs and menstrual cycle, N95.1 - Menopausal and female climacteric states Estradiol Today N94.89 - Other specified conditions associated with female genital organs and menstrual cycle, N95.1 - Menopausal and female climacteric states FSH and LH Today N94.89 - Other specified conditions associated with female genital organs and menstrual cycle, N95.1 - Menopausal and female climacteric states Plan Assessment and Plan 40-year-old female with a 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 The patient's pelvic congestion syndrome is likely contributing to her right- sided pelvic pain and may be exacerbated by fibroids, which require further evaluation through ultrasound. Her symptoms of hair loss, weight loss, and gastrointestinal disturbances may be indicative of hormonal changes associated with menopause, necessitating further hormonal evaluation. Given her family history of breast and ovarian cancer, genetic testing for BRCA mutations is prudent to assess her risk and guide potential surgical decisions. 1. Pelvic Congestion Syndrome The plan includes performing an ultrasound to evaluate the size and impact of fibroids on pelvic congestion syndrome. Consideration of surgical intervention, such as hysterectomy, is discussed, with emphasis on consulting a vascular surgeon for surgical clearance due to the patient's vascular conditions. -repeat ultrasound today ordered. -will need pre- op clearance from Dr. Helms at [facility] if we decide to do a hyterectomy 2. Menopausal Symptoms Hormonal evaluation through blood tests, including follicle-stimulating hormone and luteinizing hormone levels, is planned to assess menopausal status. Management of symptoms such as hot flashes and brain fog will be guided by theseresults. 3. Family History Of Breast And Ovarian Cancer Genetic testing for BRCA mutations is recommended to evaluate the patient's riskand inform surgical decisions regarding the removal of ovaries. The patient is advised to consider this testing, especially given her significant family history. 04/11/25 0948 <Electronically signed by Jolly Courtney DO> Date _ Jolly Peck DO Cosigner Signature: Date (if applicable) CC: ~ [facility] Work Phone: Rerrch for referral (narrative)No reason for referral information availableSaint Elizabeth Community Hospital Work Phone: Rejzpj for visit Narrative* Outpatient Procedure (Routine) - Closed Specialty Diagnoses / Procedures Referred By Jenelle barber Referred To Contact VASCULAR SURGERY Diagnoses Median arcuate ligament syndrome (HCC) Procedures FOLLOW-UP/REASSESSMENT Maciel Helms MD [address] [facility] [address] [place] [address] Evelina Moore [address] [facility] [address] [place] [address] Referral ID Status Reason Start Date Expiration Date V isits Requested Visits Authorized [id number] Closed Financial Clearance Required - Self Pay Patient Cleared - Tame 04/02/2022 04/02/2023 1 1 [facility] Summary Purpose Family History No Family History Records Found Brother (s) Status:Active Comments:3. Father Status:Active Comments:. 1949 Goiter - thyroidectomy, HTN, Hypercholesteremia Maternal Aunt Status:Active Comments:2 great aunts Breast CA Maternal Grandfather Status:Active Comments:Re ctal ca Maternal Grandmother Status:Active Comments:Br east cancer Mother Status:Active Comments:In good health. Sister (s) Status:Active Comments:2. 1 si ster w/ special needs (undiagnosed) Brother (s) Status:Active Comments:3. Father Status:Active Comments:1949 Goiter - thyroidectomy, HTN, Hypercholesteremia Maternal Aunt Status:Active Comments:2 great aunts Breast CA Maternal Grandfather Status:Active Comments:Re ctal ca Maternal Grandmother Status:Active Comments:Br east cancer Mother Status:Active Comments:In good health. Sister (s) Status:Active Comments:2. 1 si ster w/ special needs (undiagnosed) Brother (s) Status:Active Comments:3. Father Status:Active Comments:1949 Goiter - thyroidectomy, HTN, Hypercholesteremia Maternal Aunt Status:Active Comments:2 great aunts Breast CA Maternal Grandfather Status:Active Comments:Re ctal ca Maternal Grandmother Status:Active Comments:Br east cancer Mother Status:Active Comments:In good health. Sister (s) Status:Active Comments:2. 1 si ster w/ special needs (undiagnosed) Brother (s) Status:Active Comments:3. Father Status:Active Comments:1949 Goiter - thyroidectomy, HTN, Hypercholesteremia Maternal Aunt Status:Active Comments:2 great aunts Breast CA Maternal Grandfather Status:Active Comments:Re ctal ca Maternal Grandmother Status:Active Comments:Br east cancer Mother Status:Active Comments:In good health. Sister (s) Status:Active Comments:2. 1 si ster w/ special needs (undiagnosed) Brother (s) Status:Active Comments:3. Father Status:Active Comments:1949 Goiter - thyroidectomy, HTN, Hypercholesteremia Maternal Aunt Status:Active Comments:2 great aunts Breast CA Maternal Grandfather Status:Active Comments:Re ctal ca Maternal Grandmother Status:Active Comments:Br east cancer Mother Status:Active Comments:In good health. Sister (s) Status:Active Comments:2. 1 si ster w/ special needs (undiagnosed) Brother (s) Status:Active Comments:3. Father Status:Active Comments:. 1949 Goiter - thyroidectomy, HTN, Hypercholesteremia Maternal Aunt Status:Active Comments:2 great aunts Breast CA Maternal Grandfather Status:Active Comments:Re ctal ca Maternal Grandmother Status:Active Comments:Br east cancer Mother Status:Active Comments:In good health. Sister (s) Status:Active Comments:2. 1 si ster w/ special needs (undiagnosed) Brother (s) Status:Active Comments:3. Father Status:Active Comments:1949 Goiter - thyroidectomy, HTN, Hypercholesteremia Maternal Aunt Status:Active Comments:2 great aunts Breast CA Maternal Grandfather Status:Active Comments:Re ctal ca Maternal Grandmother Status:Active Comments:Br east cancer Mother Status:Active Comments:In good health. Sister (s) Status:Active Comments:2. 1 si ster w/ special needs (undiagnosed) Brother (s) Status:Active Comments:3. Father Status:Active Comments:1949 Goiter - thyroidectomy, HTN, Hypercholesteremia Maternal Aunt Status:Active Comments:2 great aunts Breast CA Maternal Grandfather Status:Active Comments:Re ctal ca Maternal Grandmother Status:Active Comments:Br east cancer Mother Status:Active Comments:In good health. Sister (s) Status:Active Comments:2. 1 si ster w/ special needs (undiagnosed) Brother (s) Status:Active Comments:3. Father Status:Active Comments:1949 Goiter - thyroidectomy, HTN, Hypercholesteremia Maternal Aunt Status:Active Comments:2 great aunts Breast CA Maternal Grandfather Status:Active Comments:Re ctal ca Maternal Grandmother Status:Active Comments:Br east cancer Mother Status:Active Comments:In good health. Sister (s) Status:Active Comments:2. 1 si ster w/ special needs (undiagnosed) Relationship Condition Age at Onset Recorded Date/[place] grandmother Malignant neoplasm of breast Unknown unrelated friend Malignant neoplasm of uterus Unknown grandfather Malignant neoplasm of colon Unknown father Hypertension Unknown Hyperlipidemia Unknown aunt Malignant neoplasm of ovary Unknown Malignant neoplasm of breast Unknown Brother (s) Status:Active Comments:3. Father Status:Active Comments:. 1949 Goiter - thyroidectomy, HTN, Hypercholesteremia Maternal Aunt Status:Active Comments:2 great aunts Breast CA Maternal Grandfather Status:Active Comments:Re ctal ca Maternal Grandmother Status:Active Comments:Br east cancer Mother Status:Active Comments:In good health. Sister (s) Status:Active Comments:2. 1 si ster w/ special needs (undiagnosed) Brother (s) Status:Active Comments:3. Father Status:Active Comments:. 1949 Goiter - thyroidectomy, HTN, Hypercholesteremia Maternal Aunt Status:Active Comments:2 great aunts Breast CA Maternal Grandfather Status:Active Comments:Re ctal ca Maternal Grandmother Status:Active Comments:Br east cancer Mother Status:Active Comments:In good health. Sister (s) Status:Active Comments:2. 1 si ster w/ special needs (undiagnosed) Brother (s) Status:Active Comments:3. Father Status:Active Comments:. 1949 Goiter - thyroidectomy, HTN, Hypercholesteremia Maternal Aunt Status:Active Comments:2 great aunts Breast CA Maternal Grandfather Status:Active Comments:Re ctal ca Maternal Grandmother Status:Active Comments:Br east cancer Mother Status:Active Comments:In good health. Sister (s) Status:Active Comments:2. 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 Chief Complaint Admit Date Screening April 11, 2025 7: 57am Discuss several problems April 11 8:36am Reason for Visit Admit Date Anxiety April 11, 2025 8: 36am Female climacteric state April 11 8:36am May-Thurner syndrome April 11, 2025 8 :36am Nutcracker phenomenon of renal vein Augu 2024 8:36am Pelvic congestion syndrome April 11, 2025 8:36am Thyroid cancer April 11, 2025 8: 36am Vascular disease of abdomen April 11, 2025 8:36am Chief Complaint Admit Date Screening April 11, 2025 7: 57am Discuss several problems April 11 8:36am MENORRHAGIA April 18, 2025 10 :52am Chief Complaint Admit Date Screening April 11, 2025 7: 57am Discuss several problems April 11 8:36am MENORRHAGIA April 18, 2025 10 :52am EMB April 26, 2025 9:29am Reason for Visit Admit Date Anxiety April 11, 2025 8: 36am Female climacteric state April 11 8:36am May-Thurner syndrome April 11, 2025 8 :36am Nutcracker phenomenon of renal vein Augu 2024 8:36am Pelvic congestion syndrome April 11, 2025 8:36am Thyroid cancer April 11, 2025 8: 36am Vascular disease of abdomen April 11, 2025 8:36am Anxiety April 26, 2025 9:29am Endometrial polyp April 26, 2025 9:29am May-Thurner syndrome April 26, 2025 9:29am Menorrhagia April 26, 2025 9:29am Nutcracker phenomenon of renal vein Sept emb2024 9:29am Pelvic congestion syndrome April 9:29am Thyroid cancer April 26, 2025 9:29am Vascular disease of abdomen April 9:29am Additional Source Comments INFORMATION SOURCE (unrecogn ized section and content) DATE CREATED AUTHOR 02/05/2019 [facility] Lis Del Real DATE CREATED AUTHOR AUTHOR'S ORGANIZ ATION 07/28/2019 [employer] DATE CREATED AUTHOR AUTHOR'S ORGANIZ ATION 08/10/2019 [facility] DATE CREATED AUTHOR AUTHOR'S ORGANIZ ATION 06/05/2021 [facility] DATE CREATED AUTHOR AUTHOR'S ORGANIZ ATION 07/04/2021 [facility] DATE CREATED AUTHOR AUTHOR'S ORGANIZ ATION 12/17/2021 [facility] DATE CREATED AUTHOR AUTHOR'S ORGANIZ ATION 03/30/2023 [facility] ([place] DATE CREATED AUTHOR AUTHOR'S ORGANIZ ATION 05/13/2025 [facility] DATE CREATED AUTHOR AUTHOR'S ORGANIZ ATION 05/15/2025 [facility] DATE CREATED AUTHOR AUTHOR'S ORGANIZ ATION 05/25/2025 [facility] DATE CREATED AUTHOR AUTHOR'S ORGANIZ ATION 05/26/2025 [facility] Goals (unrecognized section and content) Goals may be documented in a n alternate sectionGoals may be documented in an alternate sectionGoals may be documented in an alternate sectionGoals may be documented in an alternate sectionGoals may be documented in an alternate sectionGoals may be documented in an alternate sectionGoals may be documented in an alternate section Source Comments (unrecognize d section and content) In the event this informatio n is protected by the Federal Confidentiality of Alcohol and Drug Abuse Patient Records regulations: The Federal rules restrict any use of the information to criminally investigate or prosecute any alcohol or drug abuse patient.[facility] Care Teams (unrecognized sec tion and content) Safety Analyst Relationship Specialty Start Date End Date Pcp, No PCP - General 03/07/22 09/22/22 Neva Barrientos [id number] [place] [address] Family Medicine 03/07/22 09/22/22 Team Status: Active Member Role/Relationship Status Dates Mejia Pelayo MD Primary Care Provider Active Team Status: Active Member Role/Relationship Status Dates Dr. Jolly Peck DO Attending Provider Activ e Start: April 11, 2025 Dr. Jolly Peck DO Referring Provider Activ e Start: April 11, 2025 Mejia Pelayo MD Primary Care Provider Active Start: April 11, 2025 Team Status: Inactive Member Role/Relationship Status Dates Dr. Jolly Peck DO Attending Provider Activ e Start: April 11, 2025 End: April 11, 2025 Mejia Pelayo MD Primary Care Provider Active Start: April 11, 2025 End: April 11, 2025 Mejia Pelayo MD Referring Provider Active S tart: April 11, 2025 End: April 11, 2025 Team Status: Inactive Member Role/Relationship Status Dates Dr. Jolly Peck DO Attending Provider Activ e Start: April 11, 2025 End: April 11, 2025 Dr. Jolly Peck DO Referring Provider Activ e Start: April 11, 2025 End: April 11, 2025 Mejia Pelayo MD Primary Care Provider Active Start: April 11, 2025 End: April 11, 2025 Team Status: Active Member Role/Relationship Status Dates Mejia Pelayo MD Primary Care Provider Active Start: April 18, 2025 Dr. Jolly Peck DO Attending Provider Activ e Start: April 18, 2025 Dr. Jolly Peck DO Referring Provider Activ e Start: April 18, 2025 Team Status: Inactive Member Role/Relationship Status Dates Mejia Pelayo MD Primary Care Provider Active Start: April 18, 2025 End: April 18, 2025 Dr. Jolly Peck DO Attending Provider Activ e Start: April 18, 2025 End: April 18, 2025 Dr. Jolly Peck DO Referring Provider Activ e Start: April 18, 2025 End: April 18, 2025 Team Status: Inactive Member Role/Relationship Status Dates Mejia Pelayo MD Primary Care Provider Active Start: April 26, 2025 End: April 26, 2025 Mejia Pelayo MD Referring Provider Active S tart: April 26, 2025 End: April 26, 2025 Dr. Jolly Peck DO Attending Provider Activ e Start: April 26, 2025 End: April 26, 2025 Team Status: Active Member Role/Relationship Status Dates Mejia Pelayo MD Primary care physician Active Team Status: Inactive Member Role/Relationship Status Dates Dr. Jolly Peck DO Attending physician Acti ve Start: April 11, 2025 End: April 11, 2025 Dr. Jolly Peck DO Referring Provider Activ e Start: April 11, 2025 End: April 11, 2025 Mejia Pelayo MD Primary care physician Active Start: April 11, 2025 End: April 11, 2025 Team Status: Inactive Member Role/Relationship Status Dates Dr. Jolly Peck DO Attending physician Acti ve Start: April 11, 2025 End: April 11, 2025 Mejia Pelayo MD Primary care physician Active Start: April 11, 2025 End: April 11, 2025 Mejia Pelayo MD Referring Provider Active S tart: April 11, 2025 End: April 11, 2025 Team Status: Inactive Member Role/Relationship Status Dates Mejia Pelayo MD Primary care physician Active Start: April 18, 2025 End: April 18, 2025 Dr. Jolly Peck DO Attending physician Acti ve Start: April 18, 2025 End: April 18, 2025 Dr. Jolly Peck DO Referring Provider Activ e Start: April 18, 2025 End: April 18, 2025 Team Status: Inactive Member Role/Relationship Status Dates Mejia Pelayo MD Primary care physician Active Start: April 26, 2025 End: April 26, 2025 Mejia Pelayo MD Referring Provider Active S tart: April 26, 2025 End: April 26, 2025 Dr. Jolly Peck DO Attending physician Active Start: April End: April 26, 2025 Team Status: Inactive Member Role/Relationship Status Elliott Pelayo MD Primary care physician Active Start: April 26, 2025 End: April 26, 2025 Dr. Jolly Peck DO Attending physician Active Start: April End: April 26, 2025 FOR RECORDS PERTAINING TO PATIENTS WHO ARE OR HAVE BEEN ENROLLED IN A CHEMICAL DEPENDENCY/SUBSTANCEABUSE PROGRAM, SOME INFORMATION MAY BE OMITTED. This clinical summary was aggregated from multiple sources. Caution should be exercised in using it in the provision of clinical care. This summary normalizes information from multiple sources, and as a consequence, information in this document may materially change the coding, format and clinical context of patient data. In addition, data may be omitted in some cases. CLINICAL DECISIONS SHOULD BE BASED ON THE PRIMARY CLINICAL RECORDS. [facility] [employer] [facility] provides no warranty or guarantee of the accuracy or completeness of information in this document.
== END | disposition home or self-care (01) ==
LOC: BWCLAB 15:08
PROVIDERS: PCP Student in an Organized Health Care Education/Training Program; Visit Provider Obstetrics & Gynecology
DX: Z13.0 Encounter for screening for diseases of the blood and blood-forming organs and certain disorders involving the immune mechanism (principal)
CPT/HCPCS: 36415; 85025; 87070; 87205